=== PATIENT | female | born 1965 | race Caucasian/White ===

== ENCOUNTER → 2016-12-08 | Outpatient (CLI) | payer SELFPAY ==
[2016-12-08 13:24] LABS: ABSOLUTE EOSINOPHILS # (AUTO) 0.1 10^3/uL (0.0-0.6); ABSOLUTE LYMPHOCYTES (AUTO) 0.9 10^3/uL (0.5-4.7); ABSOLUTE MONOCYTES (AUTO) 0.5 10^3/uL (0.1-1.4); ABSOLUTE NEUT (AUTO) 5.5 10^3/uL (1.7-8.2); BASOPHILS % (AUTO) 0.5 % (0-2); EOSINOPHILS % (AUTO) 1.5 % (0-6); HEMATOCRIT 36.4 % (36.0-47.0); HEMOGLOBIN 11.8 g/dL (12.0-15.5); LYMPHOCYTES % (AUTO) 13.3 % (13-45); MEAN CORPUSCULAR HGB CONC 32.5 g/dL (32.0-36.0); MEAN CORPUSCULAR VOLUME 80 fl (80-97); MONOCYTES % (AUTO) 6.5 % (3-13); RED BLOOD COUNT 4.56 10^6/uL (3.72-5.28); SEGMENTED NEUTROPHILS % (AUTO) 78.2 % (42-78); WHITE BLOOD COUNT 7.1 10^3/uL (4.0-10.5)
[2016-12-08 13:44] LABS: ALANINE AMINOTRANSFERASE 10 U/L (9-52); ALBUMIN 3.9 g/dL (3.5-5.0); ALKALINE PHOSPHATASE 104 U/L (38-126); AMYLASE 44 U/L (30-110); ANION GAP 13 (5-19); ASPARTATE AMINO TRANSFERASE 14 U/L (14-36); BILIRUBIN,TOTAL 0.5 mg/dL (0.2-1.3); BLOOD UREA NITROGEN 38 mg/dL (7-20); CALCIUM 9.2 mg/dL (8.4-10.2); CARBON DIOXIDE 23 mmol/L (22-30); CHLORIDE 106 mmol/L (98-107); CREATININE RESULT 2.22 mg/dL (0.52-1.25); Direct HDL 47 mg/dL (>40); GLUCOSE 148 mg/dL (75-110); LIPASE 45.8 U/L (23-300); MAGNESIUM 2.2 mg/dL (1.6-2.3); POTASSIUM 5.2 mmol/L (3.6-5.0); SODIUM 141.9 mmol/L (137-145); TRIGLYCERIDES 182 mg/dL (<150)
[2016-12-08 13:49] LABS: APPEARANCE,URINE TURBID; BILIRUBIN,URINE NEGATIVE (NEGATIVE); GLUCOSE, URINE NEGATIVE (NEGATIVE); KETONES,URINE NEGATIVE (NEGATIVE); LEUKOCYTE ESTERASE,URINE LARGE (NEGATIVE); NITRITE,URINE NEGATIVE (NEGATIVE); PROTEIN,URINE 100 mg/dL (NEGATIVE); URINE SPECIFIC GRAVITY 1.017; UROBILINOGEN,URINE NEGATIVE mg/dL (<2.0)
[2016-12-08 13:54] LABS: DIRECT LDL 112 mg/dL (<100)
[2016-12-08 15:42] LABS: PROTHROMBIN TIME 51.3 SEC (11.4-15.4)
[2016-12-09 13:47] LABS: C-PEPTIDE 5.7 ng/mL (1.1-4.4)
[2016-12-10 08:35] LABS: TACROLIMUS (FK506) 6.2 ng/mL (2.0-20.0)
== END ==
LOC: OD 12:03
PROVIDERS: ATTEND Internal Medicine Nephrology
DX: D69.9 Hemorrhagic condition, unspecified (principal); Z94.0 Kidney transplant status; Z79.899 Other long term (current) drug therapy; E55.9 Vitamin D deficiency, unspecified; Z11.4 Encounter for screening for human immunodeficiency virus [HIV]; E11.29 Type 2 diabetes mellitus with other diabetic kidney complication; Z78.9 Other specified health status; N39.0 Urinary tract infection, site not specified; D63.1 Anemia in chronic kidney disease; E83.30 Disorder of phosphorus metabolism, unspecified; Z09 Encounter for follow-up examination after completed treatment for conditions other than malignant neoplasm; T86.10 Unspecified complication of kidney transplant; B25.9 Cytomegaloviral disease, unspecified; Z94.83 Pancreas transplant status
CPT/HCPCS: 36415; 80048; 80197; 81001; 82040; 82150; 82247; 82465; 82977; 83036; 83690; 83718; 83721; 83735; 84075; 84100; 84450; 84460; 84478; 84681; 85025; 85610; 87086; 87088; 87186

== ENCOUNTER → 2016-12-19 | Outpatient (CLI) | payer SELFPAY ==
[2016-12-19 12:59] LABS: PROTHROMBIN TIME 15.7 SEC (11.4-15.4)
== END ==
LOC: OD 10:57
PROVIDERS: ATTEND Internal Medicine Nephrology
DX: D89.9 Disorder involving the immune mechanism, unspecified (principal); Z94.0 Kidney transplant status; Z79.899 Other long term (current) drug therapy; Z11.4 Encounter for screening for human immunodeficiency virus [HIV]; E11.29 Type 2 diabetes mellitus with other diabetic kidney complication; Z78.9 Other specified health status; N39.0 Urinary tract infection, site not specified; D63.1 Anemia in chronic kidney disease; E83.30 Disorder of phosphorus metabolism, unspecified; Z09 Encounter for follow-up examination after completed treatment for conditions other than malignant neoplasm; T86.10 Unspecified complication of kidney transplant; B25.9 Cytomegaloviral disease, unspecified; Z94.83 Pancreas transplant status
CPT/HCPCS: 36415; 85610

== ENCOUNTER → 2017-01-05 | Outpatient (CLI) | payer SELFPAY ==
[2017-01-05 12:07] LABS: ABSOLUTE BASOPHILS # (AUTO) 0.1 10^3/uL (0.0-0.2); ABSOLUTE EOSINOPHILS # (AUTO) 0.3 10^3/uL (0.0-0.6); ABSOLUTE LYMPHOCYTES (AUTO) 1.4 10^3/uL (0.5-4.7); ABSOLUTE MONOCYTES (AUTO) 0.5 10^3/uL (0.1-1.4); ABSOLUTE NEUT (AUTO) 5.4 10^3/uL (1.7-8.2); BASOPHILS % (AUTO) 0.8 % (0-2); EOSINOPHILS % (AUTO) 3.6 % (0-6); HEMATOCRIT 37.6 % (36.0-47.0); HEMOGLOBIN 11.9 g/dL (12.0-15.5); HGB HCT DIFFERENCE -1.9; LYMPHOCYTES % (AUTO) 18.7 % (13-45); MEAN CORPUSCULAR HEMOGLOBIN 25.6 pg (27.0-33.4); MEAN CORPUSCULAR HGB CONC 31.7 g/dL (32.0-36.0); MEAN CORPUSCULAR VOLUME 81 fl (80-97); MONOCYTES % (AUTO) 6.4 % (3-13); RED BLOOD COUNT 4.65 10^6/uL (3.72-5.28); RED CELL DISTRIBUTION WIDTH 16.3 % (11.5-14.0); SEGMENTED NEUTROPHILS % (AUTO) 70.5 % (42-78); WHITE BLOOD COUNT 7.6 10^3/uL (4.0-10.5)
[2017-01-05 12:16] LABS: PROTHROMBIN TIME 18.6 SEC (11.4-15.4)
[2017-01-05 12:47] LABS: AMYLASE 54 U/L (30-110); ANION GAP 12 (5-19); BLOOD UREA NITROGEN 26 mg/dL (7-20); CALCIUM 9.3 mg/dL (8.4-10.2); CARBON DIOXIDE 22 mmol/L (22-30); CHLORIDE 104 mmol/L (98-107); CREATININE RESULT 1.23 mg/dL (0.52-1.25); GLUCOSE 104 mg/dL (75-110); LIPASE 150.9 U/L (23-300); MAGNESIUM 1.6 mg/dL (1.6-2.3); PHOSPHORUS 4.1 mg/dL (2.5-4.5); POTASSIUM 5.3 mmol/L (3.6-5.0); SODIUM 138.1 mmol/L (137-145)
[2017-01-06 14:54] LABS: C-PEPTIDE 2.3 ng/mL (1.1-4.4)
[2017-01-07 07:15] LABS: TACROLIMUS (FK506) 6.6 ng/mL (2.0-20.0)
== END ==
LOC: OD 10:35
PROVIDERS: ATTEND Internal Medicine Nephrology
DX: D89.9 Disorder involving the immune mechanism, unspecified (principal); Z94.0 Kidney transplant status; Z09 Encounter for follow-up examination after completed treatment for conditions other than malignant neoplasm; Z79.899 Other long term (current) drug therapy; E55.9 Vitamin D deficiency, unspecified; Z11.4 Encounter for screening for human immunodeficiency virus [HIV]; E11.29 Type 2 diabetes mellitus with other diabetic kidney complication; Z78.9 Other specified health status; N39.0 Urinary tract infection, site not specified; D53.1 Other megaloblastic anemias, not elsewhere classified; E83.30 Disorder of phosphorus metabolism, unspecified; T86.10 Unspecified complication of kidney transplant; B25.9 Cytomegaloviral disease, unspecified; Z94.83 Pancreas transplant status
CPT/HCPCS: 36415; 80048; 80197; 82150; 83036; 83690; 83735; 84100; 84681; 85025; 85610

== ENCOUNTER → 2017-02-17 | Outpatient (CLI) | payer SELFPAY ==
[2017-02-17 12:47] LABS: PROTHROMBIN TIME 22.8 SEC (11.4-15.4)
[2017-02-17 12:52] LABS: ABSOLUTE EOSINOPHILS # (AUTO) 0.3 10^3/uL (0.0-0.6); ABSOLUTE LYMPHOCYTES (AUTO) 1.6 10^3/uL (0.5-4.7); ABSOLUTE MONOCYTES (AUTO) 0.4 10^3/uL (0.1-1.4); ABSOLUTE NEUT (AUTO) 4.7 10^3/uL (1.7-8.2); BASOPHILS % (AUTO) 0.6 % (0-2); EOSINOPHILS % (AUTO) 4.5 % (0-6); HEMATOCRIT 36.9 % (36.0-47.0); HEMOGLOBIN 11.7 g/dL (12.0-15.5); HGB HCT DIFFERENCE -1.8; LYMPHOCYTES % (AUTO) 22.7 % (13-45); MEAN CORPUSCULAR HEMOGLOBIN 25.3 pg (27.0-33.4); MEAN CORPUSCULAR HGB CONC 31.6 g/dL (32.0-36.0); MEAN CORPUSCULAR VOLUME 80 fl (80-97); MONOCYTES % (AUTO) 5.6 % (3-13); RED BLOOD COUNT 4.61 10^6/uL (3.72-5.28); RED CELL DISTRIBUTION WIDTH 16.1 % (11.5-14.0); SEGMENTED NEUTROPHILS % (AUTO) 66.6 % (42-78)
[2017-02-17 13:21] LABS: AMYLASE 53 U/L (30-110); ANION GAP 12 (5-19); BLOOD UREA NITROGEN 26 mg/dL (7-20); CALCIUM 9.4 mg/dL (8.4-10.2); CARBON DIOXIDE 22 mmol/L (22-30); CHLORIDE 107 mmol/L (98-107); CREATININE RESULT 1.29 mg/dL (0.52-1.25); GLUCOSE 115 mg/dL (75-110); LIPASE 112.7 U/L (23-300); MAGNESIUM 1.8 mg/dL (1.6-2.3); POTASSIUM 4.8 mmol/L (3.6-5.0)
== END ==
LOC: OD 11:34
PROVIDERS: ATTEND Internal Medicine Nephrology
DX: Z94.0 Kidney transplant status (principal); D89.9 Disorder involving the immune mechanism, unspecified; Z79.899 Other long term (current) drug therapy; Z11.4 Encounter for screening for human immunodeficiency virus [HIV]; E11.29 Type 2 diabetes mellitus with other diabetic kidney complication; N39.0 Urinary tract infection, site not specified; D63.1 Anemia in chronic kidney disease; E55.9 Vitamin D deficiency, unspecified; E83.30 Disorder of phosphorus metabolism, unspecified; Z09 Encounter for follow-up examination after completed treatment for conditions other than malignant neoplasm; T86.10 Unspecified complication of kidney transplant; B25.9 Cytomegaloviral disease, unspecified; Z94.83 Pancreas transplant status; Z78.9 Other specified health status
CPT/HCPCS: 36415; 80048; 80197; 82150; 83036; 83690; 83735; 84100; 84681; 85025; 85610

== ENCOUNTER → 2017-04-23 | Outpatient (CLI) | payer SELFPAY ==
[2017-04-23 11:28] LABS: ABSOLUTE BASOPHILS # (AUTO) 0.1 10^3/uL (0.0-0.2); ABSOLUTE EOSINOPHILS # (AUTO) 0.3 10^3/uL (0.0-0.6); ABSOLUTE LYMPHOCYTES (AUTO) 1.6 10^3/uL (0.5-4.7); ABSOLUTE MONOCYTES (AUTO) 0.4 10^3/uL (0.1-1.4); ABSOLUTE NEUT (AUTO) 4.1 10^3/uL (1.7-8.2); BASOPHILS % (AUTO) 0.9 % (0-2); EOSINOPHILS % (AUTO) 4.9 % (0-6); HEMATOCRIT 36.2 % (36.0-47.0); HEMOGLOBIN 11.6 g/dL (12.0-15.5); HGB HCT DIFFERENCE -1.4; LYMPHOCYTES % (AUTO) 24.6 % (13-45); MEAN CORPUSCULAR HGB CONC 31.9 g/dL (32.0-36.0); MEAN CORPUSCULAR VOLUME 78 fl (80-97); MONOCYTES % (AUTO) 5.8 % (3-13); RED BLOOD COUNT 4.62 10^6/uL (3.72-5.28); RED CELL DISTRIBUTION WIDTH 16.4 % (11.5-14.0); SEGMENTED NEUTROPHILS % (AUTO) 63.8 % (42-78); WHITE BLOOD COUNT 6.4 10^3/uL (4.0-10.5)
[2017-04-23 11:33] LABS: APPEARANCE,URINE SLIGHTLY-CLOUDY; BILIRUBIN,URINE NEGATIVE (NEGATIVE); GLUCOSE, URINE 50 mg/dL (NEGATIVE); KETONES,URINE NEGATIVE (NEGATIVE); LEUKOCYTE ESTERASE,URINE SMALL (NEGATIVE); NITRITE,URINE NEGATIVE (NEGATIVE); PROTEIN,URINE 100 mg/dL (NEGATIVE); URINE SPECIFIC GRAVITY 1.014; UROBILINOGEN,URINE NEGATIVE mg/dL (<2.0)
[2017-04-23 11:36] LABS: PARTIAL THROMBOPLASTIN TIME 37.5 SEC (23.5-35.8)
[2017-04-23 11:54] LABS: ALANINE AMINOTRANSFERASE 19 U/L (9-52); ALBUMIN 3.9 g/dL (3.5-5.0); ALKALINE PHOSPHATASE 117 U/L (38-126); AMYLASE 98 U/L (30-110); ANION GAP 9 (5-19); ASPARTATE AMINO TRANSFERASE 22 U/L (14-36); BILIRUBIN,TOTAL 0.6 mg/dL (0.2-1.3); BLOOD UREA NITROGEN 29 mg/dL (7-20); CALCIUM 9.3 mg/dL (8.4-10.2); CARBON DIOXIDE 23 mmol/L (22-30); CHLORIDE 106 mmol/L (98-107); CHOLESTEROL 238.71 mg/dL (0-200); CREATININE RESULT 1.41 mg/dL (0.52-1.25); Direct HDL 67 mg/dL (>40); GLUCOSE 117 mg/dL (75-110); LIPASE 489.2 U/L (23-300); MAGNESIUM 1.8 mg/dL (1.6-2.3); PHOSPHORUS 4.4 mg/dL (2.5-4.5); SODIUM 137.6 mmol/L (137-145); TRIGLYCERIDES 115 mg/dL (<150)
[2017-04-23 12:04] LABS: DIRECT LDL 134 mg/dL (<100)
[2017-04-24 16:08] LABS: C-PEPTIDE 3.2 ng/mL (1.1-4.4)
[2017-04-25 12:05] LABS: TACROLIMUS (FK506) 6.3 ng/mL (2.0-20.0)
== END ==
LOC: OD 10:15
PROVIDERS: ATTEND Internal Medicine Nephrology
DX: D89.9 Disorder involving the immune mechanism, unspecified (principal); Z94.0 Kidney transplant status; Z79.899 Other long term (current) drug therapy; E55.9 Vitamin D deficiency, unspecified; Z11.4 Encounter for screening for human immunodeficiency virus [HIV]; E11.29 Type 2 diabetes mellitus with other diabetic kidney complication; Z78.9 Other specified health status; N39.0 Urinary tract infection, site not specified; N18.9 Chronic kidney disease, unspecified; D63.1 Anemia in chronic kidney disease; E83.30 Disorder of phosphorus metabolism, unspecified; Z09 Encounter for follow-up examination after completed treatment for conditions other than malignant neoplasm; T86.10 Unspecified complication of kidney transplant; B25.9 Cytomegaloviral disease, unspecified; Z94.83 Pancreas transplant status
CPT/HCPCS: 36415; 80048; 80197; 81001; 82040; 82150; 82247; 82465; 82977; 83036; 83690; 83718; 83721; 83735; 84075; 84100; 84450; 84460; 84478; 84681; 85025; 85610; 85730; 87086

== ENCOUNTER → 2017-04-28 | Outpatient (CLI) | payer SELFPAY ==
[2017-04-30 12:01] LABS: PROTHROMBIN TIME 29.3 SEC (11.4-15.4)
== END ==
LOC: OD 11:21
PROVIDERS: ATTEND Internal Medicine Nephrology
DX: D89.9 Disorder involving the immune mechanism, unspecified (principal); Z94.0 Kidney transplant status; Z11.4 Encounter for screening for human immunodeficiency virus [HIV]; Z78.9 Other specified health status; Z79.899 Other long term (current) drug therapy; D63.1 Anemia in chronic kidney disease; N39.0 Urinary tract infection, site not specified; E11.29 Type 2 diabetes mellitus with other diabetic kidney complication; E83.30 Disorder of phosphorus metabolism, unspecified; T86.10 Unspecified complication of kidney transplant; B25.9 Cytomegaloviral disease, unspecified; Z94.83 Pancreas transplant status
CPT/HCPCS: 36415; 85610

== ENCOUNTER → 2017-05-21 | Outpatient (CLI) | payer SELFPAY ==
[2017-05-21 12:49] LABS: ABSOLUTE EOSINOPHILS # (AUTO) 0.3 10^3/uL (0.0-0.6); ABSOLUTE LYMPHOCYTES (AUTO) 1.3 10^3/uL (0.5-4.7); ABSOLUTE MONOCYTES (AUTO) 0.4 10^3/uL (0.1-1.4); ABSOLUTE NEUT (AUTO) 5.2 10^3/uL (1.7-8.2); BASOPHILS % (AUTO) 0.5 % (0-2); EOSINOPHILS % (AUTO) 3.9 % (0-6); HEMATOCRIT 35.9 % (36.0-47.0); HEMOGLOBIN 11.1 g/dL (12.0-15.5); HGB HCT DIFFERENCE -2.6; LYMPHOCYTES % (AUTO) 18.5 % (13-45); MEAN CORPUSCULAR HEMOGLOBIN 24.6 pg (27.0-33.4); MEAN CORPUSCULAR VOLUME 79 fl (80-97); MONOCYTES % (AUTO) 5.5 % (3-13); RED BLOOD COUNT 4.52 10^6/uL (3.72-5.28); RED CELL DISTRIBUTION WIDTH 17.1 % (11.5-14.0); SEGMENTED NEUTROPHILS % (AUTO) 71.6 % (42-78); WHITE BLOOD COUNT 7.2 10^3/uL (4.0-10.5)
[2017-05-21 12:52] LABS: PROTHROMBIN TIME 29.8 SEC (11.4-15.4)
[2017-05-21 13:08] LABS: AMYLASE 112 U/L (30-110); ANION GAP 13 (5-19); BLOOD UREA NITROGEN 30 mg/dL (7-20); CALCIUM 8.6 mg/dL (8.4-10.2); CARBON DIOXIDE 19 mmol/L (22-30); CHLORIDE 103 mmol/L (98-107); CHOLESTEROL 194.91 mg/dL (0-200); CREATININE RESULT 1.42 mg/dL (0.52-1.25); Direct HDL 57 mg/dL (>40); GLUCOSE 194 mg/dL (75-110); LIPASE 796.9 U/L (23-300); PHOSPHORUS 3.6 mg/dL (2.5-4.5); POTASSIUM 4.6 mmol/L (3.6-5.0); SODIUM 135.3 mmol/L (137-145); TRIGLYCERIDES 120 mg/dL (<150)
[2017-05-21 13:20] LABS: DIRECT LDL 109 mg/dL (<100)
[2017-05-23 09:47] LABS: C-PEPTIDE 5.4 ng/mL (1.1-4.4)
[2017-05-23 09:48] LABS: TACROLIMUS (FK506) 3.5 ng/mL (2.0-20.0)
== END ==
LOC: OD 11:17
PROVIDERS: ATTEND Internal Medicine Nephrology
DX: Z09 Encounter for follow-up examination after completed treatment for conditions other than malignant neoplasm (principal); D89.9 Disorder involving the immune mechanism, unspecified; Z84.0 Family history of diseases of the skin and subcutaneous tissue; Z79.899 Other long term (current) drug therapy; E55.9 Vitamin D deficiency, unspecified; Z11.4 Encounter for screening for human immunodeficiency virus [HIV]; E11.29 Type 2 diabetes mellitus with other diabetic kidney complication; Z78.9 Other specified health status; N39.0 Urinary tract infection, site not specified; D63.1 Anemia in chronic kidney disease; E83.30 Disorder of phosphorus metabolism, unspecified; B25.9 Cytomegaloviral disease, unspecified; Z94.83 Pancreas transplant status
CPT/HCPCS: 36415; 80048; 80197; 82150; 82465; 83036; 83690; 83718; 83721; 83735; 84100; 84478; 84681; 85025; 85610

== ENCOUNTER → 2017-08-26 | Outpatient (CLI) | payer SELFPAY ==
[2017-08-26 12:19] LABS: ABSOLUTE BASOPHILS # (AUTO) 0.1 10^3/uL (0.0-0.2); ABSOLUTE EOSINOPHILS # (AUTO) 0.2 10^3/uL (0.0-0.6); ABSOLUTE LYMPHOCYTES (AUTO) 1.5 10^3/uL (0.5-4.7); ABSOLUTE MONOCYTES (AUTO) 0.5 10^3/uL (0.1-1.4); ABSOLUTE NEUT (AUTO) 5.1 10^3/uL (1.7-8.2); BASOPHILS % (AUTO) 1.4 % (0-2); EOSINOPHILS % (AUTO) 3.1 % (0-6); HEMATOCRIT 35.1 % (36.0-47.0); HEMOGLOBIN 11.2 g/dL (12.0-15.5); HGB HCT DIFFERENCE -1.5; LYMPHOCYTES % (AUTO) 20.1 % (13-45); MEAN CORPUSCULAR HEMOGLOBIN 25.4 pg (27.0-33.4); MEAN CORPUSCULAR VOLUME 79 fl (80-97); MONOCYTES % (AUTO) 6.2 % (3-13); RED BLOOD COUNT 4.43 10^6/uL (3.72-5.28); SEGMENTED NEUTROPHILS % (AUTO) 69.2 % (42-78); WHITE BLOOD COUNT 7.3 10^3/uL (4.0-10.5)
[2017-08-26 12:28] LABS: PROTHROMBIN TIME 15.6 SEC (11.4-15.4)
[2017-08-26 13:30] LABS: AMYLASE 50 U/L (30-110); ANION GAP 10 (5-19); BLOOD UREA NITROGEN 28 mg/dL (7-20); CALCIUM 9.5 mg/dL (8.4-10.2); CARBON DIOXIDE 21 mmol/L (22-30); CHLORIDE 109 mmol/L (98-107); CREATININE RESULT 1.32 mg/dL (0.52-1.25); GLUCOSE 177 mg/dL (75-110); LIPASE 111.4 U/L (23-300); PHOSPHORUS 4.1 mg/dL (2.5-4.5); POTASSIUM 5.4 mmol/L (3.6-5.0); SODIUM 139.7 mmol/L (137-145)
[2017-08-27 13:07] LABS: C-PEPTIDE 1.4 ng/mL (1.1-4.4)
== END ==
LOC: OD 11:17
PROVIDERS: ATTEND Internal Medicine Nephrology
DX: D89.9 Disorder involving the immune mechanism, unspecified (principal); Z94.0 Kidney transplant status; Z79.899 Other long term (current) drug therapy; E55.9 Vitamin D deficiency, unspecified; B25.9 Cytomegaloviral disease, unspecified; Z94.83 Pancreas transplant status; Z11.4 Encounter for screening for human immunodeficiency virus [HIV]; E11.29 Type 2 diabetes mellitus with other diabetic kidney complication; N39.0 Urinary tract infection, site not specified
CPT/HCPCS: 36415; 80048; 80197; 82150; 83036; 83690; 83735; 84100; 84681; 85025; 85610

== ENCOUNTER → 2017-09-02 | Outpatient (CLI) | payer SELFPAY ==
[2017-09-02 12:01] LABS: PROTHROMBIN TIME 20.8 SEC (11.4-15.4)
== END ==
LOC: OD 10:50
PROVIDERS: ATTEND Internal Medicine Nephrology
DX: D89.9 Disorder involving the immune mechanism, unspecified (principal); Z94.0 Kidney transplant status; Z79.899 Other long term (current) drug therapy; E55.9 Vitamin D deficiency, unspecified; Z11.4 Encounter for screening for human immunodeficiency virus [HIV]; E11.29 Type 2 diabetes mellitus with other diabetic kidney complication; Z78.9 Other specified health status; N39.0 Urinary tract infection, site not specified; D63.1 Anemia in chronic kidney disease; Z09 Encounter for follow-up examination after completed treatment for conditions other than malignant neoplasm; T86.10 Unspecified complication of kidney transplant; B25.9 Cytomegaloviral disease, unspecified; Z94.83 Pancreas transplant status
CPT/HCPCS: 36415; 85610

== ENCOUNTER → 2017-09-09 | Outpatient (CLI) | payer SELFPAY ==
[2017-09-09 11:59] LABS: ABSOLUTE BASOPHILS # (AUTO) 0.1 10^3/uL (0.0-0.2); ABSOLUTE EOSINOPHILS # (AUTO) 0.1 10^3/uL (0.0-0.6); ABSOLUTE LYMPHOCYTES (AUTO) 1.6 10^3/uL (0.5-4.7); ABSOLUTE MONOCYTES (AUTO) 0.4 10^3/uL (0.1-1.4); ABSOLUTE NEUT (AUTO) 5.8 10^3/uL (1.7-8.2); BASOPHILS % (AUTO) 0.7 % (0-2); EOSINOPHILS % (AUTO) 1.7 % (0-6); HEMATOCRIT 35.4 % (36.0-47.0); HEMOGLOBIN 11.3 g/dL (12.0-15.5); HGB HCT DIFFERENCE -1.5; LYMPHOCYTES % (AUTO) 19.6 % (13-45); MEAN CORPUSCULAR HGB CONC 31.8 g/dL (32.0-36.0); MEAN CORPUSCULAR VOLUME 79 fl (80-97); MONOCYTES % (AUTO) 5.4 % (3-13); RED BLOOD COUNT 4.51 10^6/uL (3.72-5.28); RED CELL DISTRIBUTION WIDTH 16.7 % (11.5-14.0); SEGMENTED NEUTROPHILS % (AUTO) 72.6 % (42-78)
[2017-09-09 12:05] LABS: PROTHROMBIN TIME 27.9 SEC (11.4-15.4)
[2017-09-09 12:28] LABS: AMYLASE 46 U/L (30-110); ANION GAP 12 (5-19); BLOOD UREA NITROGEN 26 mg/dL (7-20); CALCIUM 9.4 mg/dL (8.4-10.2); CARBON DIOXIDE 21 mmol/L (22-30); CHLORIDE 109 mmol/L (98-107); GLUCOSE 118 mg/dL (75-110); LIPASE 55.4 U/L (23-300); MAGNESIUM 1.8 mg/dL (1.6-2.3); PHOSPHORUS 4.3 mg/dL (2.5-4.5); POTASSIUM 5.5 mmol/L (3.6-5.0); SODIUM 142.1 mmol/L (137-145)
[2017-09-11 07:18] LABS: C-PEPTIDE 0.2 ng/mL (1.1-4.4); TACROLIMUS (FK506) 6.9 ng/mL (2.0-20.0)
== END ==
LOC: OD 10:59
PROVIDERS: ATTEND Internal Medicine Nephrology
DX: D89.9 Disorder involving the immune mechanism, unspecified (principal); Z94.0 Kidney transplant status; Z79.899 Other long term (current) drug therapy; E55.9 Vitamin D deficiency, unspecified; B25.9 Cytomegaloviral disease, unspecified; Z94.83 Pancreas transplant status
CPT/HCPCS: 36415; 80048; 80197; 82150; 83036; 83690; 83735; 84100; 84681; 85025; 85610

== ENCOUNTER → 2017-09-21 | Outpatient (CLI) | payer SELFPAY ==
[2017-09-21 12:42] LABS: ABSOLUTE BASOPHILS # (AUTO) 0.1 10^3/uL (0.0-0.2); ABSOLUTE EOSINOPHILS # (AUTO) 0.2 10^3/uL (0.0-0.6); ABSOLUTE LYMPHOCYTES (AUTO) 1.6 10^3/uL (0.5-4.7); ABSOLUTE MONOCYTES (AUTO) 0.3 10^3/uL (0.1-1.4); ABSOLUTE NEUT (AUTO) 4.5 10^3/uL (1.7-8.2); BASOPHILS % (AUTO) 0.9 % (0-2); EOSINOPHILS % (AUTO) 2.9 % (0-6); HEMATOCRIT 35.8 % (36.0-47.0); HEMOGLOBIN 11.7 g/dL (12.0-15.5); HGB HCT DIFFERENCE -0.7; LYMPHOCYTES % (AUTO) 24.2 % (13-45); MEAN CORPUSCULAR HEMOGLOBIN 25.5 pg (27.0-33.4); MEAN CORPUSCULAR HGB CONC 32.6 g/dL (32.0-36.0); MEAN CORPUSCULAR VOLUME 78 fl (80-97); MONOCYTES % (AUTO) 5.1 % (3-13); RED BLOOD COUNT 4.58 10^6/uL (3.72-5.28); RED CELL DISTRIBUTION WIDTH 16.4 % (11.5-14.0); SEGMENTED NEUTROPHILS % (AUTO) 66.9 % (42-78); WHITE BLOOD COUNT 6.8 10^3/uL (4.0-10.5)
[2017-09-21 12:45] LABS: PROTHROMBIN TIME 30.4 SEC (11.4-15.4)
[2017-09-21 13:03] LABS: AMYLASE 50 U/L (30-110); ANION GAP 13 (5-19); BLOOD UREA NITROGEN 36 mg/dL (7-20); CALCIUM 9.5 mg/dL (8.4-10.2); CARBON DIOXIDE 20 mmol/L (22-30); CHLORIDE 109 mmol/L (98-107); CREATININE RESULT 1.32 mg/dL (0.52-1.25); GLUCOSE 117 mg/dL (75-110); MAGNESIUM 1.7 mg/dL (1.6-2.3); PHOSPHORUS 4.6 mg/dL (2.5-4.5); POTASSIUM 5.4 mmol/L (3.6-5.0); SODIUM 142.2 mmol/L (137-145)
[2017-09-22 13:45] LABS: TACROLIMUS (FK506) 6.3 ng/mL (2.0-20.0)
== END ==
LOC: OD 10:39
PROVIDERS: ATTEND Internal Medicine Nephrology
DX: D89.9 Disorder involving the immune mechanism, unspecified (principal); Z94.0 Kidney transplant status; Z79.899 Other long term (current) drug therapy; E55.9 Vitamin D deficiency, unspecified; Z11.4 Encounter for screening for human immunodeficiency virus [HIV]; E11.29 Type 2 diabetes mellitus with other diabetic kidney complication; Z78.9 Other specified health status; N39.0 Urinary tract infection, site not specified; D63.1 Anemia in chronic kidney disease; E83.30 Disorder of phosphorus metabolism, unspecified; Z09 Encounter for follow-up examination after completed treatment for conditions other than malignant neoplasm; T86.10 Unspecified complication of kidney transplant; B25.9 Cytomegaloviral disease, unspecified; Z94.83 Pancreas transplant status
CPT/HCPCS: 36415; 80048; 80197; 82150; 83036; 83690; 83735; 84100; 84681; 85025; 85610

== ENCOUNTER → 2017-12-25 | Outpatient (CLI) | payer SELFPAY ==
[2017-12-25 13:18] LABS: ABSOLUTE BASOPHILS # (AUTO) 0.1 10^3/uL (0.0-0.2); ABSOLUTE EOSINOPHILS # (AUTO) 0.2 10^3/uL (0.0-0.6); ABSOLUTE LYMPHOCYTES (AUTO) 1.7 10^3/uL (0.5-4.7); ABSOLUTE MONOCYTES (AUTO) 0.4 10^3/uL (0.1-1.4); BASOPHILS % (AUTO) 0.8 % (0-2); EOSINOPHILS % (AUTO) 2.5 % (0-6); HEMATOCRIT 35.6 % (36.0-47.0); HEMOGLOBIN 11.3 g/dL (12.0-15.5); LYMPHOCYTES % (AUTO) 19.8 % (13-45); MEAN CORPUSCULAR HEMOGLOBIN 24.7 pg (27.0-33.4); MEAN CORPUSCULAR HGB CONC 31.7 g/dL (32.0-36.0); MEAN CORPUSCULAR VOLUME 78 fl (80-97); MONOCYTES % (AUTO) 4.8 % (3-13); PLATELET COUNT 226 10^3/uL (150-450); RED BLOOD COUNT 4.57 10^6/uL (3.72-5.28); RED CELL DISTRIBUTION WIDTH 17.3 % (11.5-14.0); SEGMENTED NEUTROPHILS % (AUTO) 72.1 % (42-78); TOTAL CELLS COUNTED % (AUTO) 100 %; WHITE BLOOD COUNT 8.4 10^3/uL (4.0-10.5)
[2017-12-25 13:42] LABS: INTERNATIONAL RATION (INR) 1.71
[2017-12-25 13:45] LABS: AMYLASE 93 U/L (30-110); ANION GAP 9 (5-19); BLOOD UREA NITROGEN 28 mg/dL (7-20); CALCIUM 9.7 mg/dL (8.4-10.2); CARBON DIOXIDE 21 mmol/L (22-30); CHLORIDE 108 mmol/L (98-107); GLUCOSE 85 mg/dL (75-110); LIPASE 344.2 U/L (23-300); MAGNESIUM 1.8 mg/dL (1.6-2.3); PHOSPHORUS 4.5 mg/dL (2.5-4.5); POTASSIUM 4.6 mmol/L (3.6-5.0); SODIUM 137.5 mmol/L (137-145)
[2017-12-27 13:28] LABS: C-PEPTIDE <0.1 ng/mL (1.1-4.4)
[2017-12-29 07:16] LABS: TACROLIMUS (FK506) 2.6 ng/mL (2.0-20.0)
== END ==
LOC: OD 11:46
PROVIDERS: ATTEND Internal Medicine Nephrology
DX: D89.9 Disorder involving the immune mechanism, unspecified (principal); Z94.0 Kidney transplant status; Z79.899 Other long term (current) drug therapy; E55.9 Vitamin D deficiency, unspecified; Z11.4 Encounter for screening for human immunodeficiency virus [HIV]; E11.29 Type 2 diabetes mellitus with other diabetic kidney complication; Z78.9 Other specified health status; N39.0 Urinary tract infection, site not specified; N18.9 Chronic kidney disease, unspecified; D63.1 Anemia in chronic kidney disease; E83.30 Disorder of phosphorus metabolism, unspecified; Z09 Encounter for follow-up examination after completed treatment for conditions other than malignant neoplasm; B25.9 Cytomegaloviral disease, unspecified; Z94.83 Pancreas transplant status
CPT/HCPCS: 36415; 80048; 80197; 82150; 83036; 83690; 83735; 84100; 84681; 85025; 85610

== ENCOUNTER → 2018-09-22 | Outpatient (CLI) | payer SELFPAY ==
[2018-09-22 12:11] LABS: ABSOLUTE BASOPHILS # (AUTO) 0.1 10^3/uL (0.0-0.2); ABSOLUTE EOSINOPHILS # (AUTO) 0.5 10^3/uL (0.0-0.6); ABSOLUTE LYMPHOCYTES (AUTO) 1.7 10^3/uL (0.5-4.7); ABSOLUTE MONOCYTES (AUTO) 0.5 10^3/uL (0.1-1.4); ABSOLUTE NEUT (AUTO) 6.5 10^3/uL (1.7-8.2); BASOPHILS % (AUTO) 0.7 % (0-2); EOSINOPHILS % (AUTO) 5.6 % (0-6); HEMATOCRIT 35.1 % (36.0-47.0); HEMOGLOBIN 11.4 g/dL (12.0-15.5); LYMPHOCYTES % (AUTO) 18.6 % (13-45); MEAN CORPUSCULAR HGB CONC 32.6 g/dL (32.0-36.0); MEAN CORPUSCULAR VOLUME 80 fl (80-97); MONOCYTES % (AUTO) 5.2 % (3-13); PLATELET COUNT 238 10^3/uL (150-450); RED BLOOD COUNT 4.39 10^6/uL (3.72-5.28); RED CELL DISTRIBUTION WIDTH 16.9 % (11.5-14.0); SEGMENTED NEUTROPHILS % (AUTO) 69.9 % (42-78); TOTAL CELLS COUNTED % (AUTO) 100 %; WHITE BLOOD COUNT 9.4 10^3/uL (4.0-10.5)
[2018-09-22 12:38] LABS: ANION GAP 12 (5-19); BLOOD UREA NITROGEN 29 mg/dL (7-20); CALCIUM 9.5 mg/dL (8.4-10.2); CARBON DIOXIDE 21 mmol/L (22-30); CHLORIDE 106 mmol/L (98-107); GLUCOSE 106 mg/dL (75-110); PHOSPHORUS 4.6 mg/dL (2.5-4.5); POTASSIUM 5.3 mmol/L (3.6-5.0); SODIUM 139.4 mmol/L (137-145)
[2018-09-22 14:34] LABS: INTERNATIONAL RATION (INR) 1.17; PROTHROMBIN TIME 15.5 SEC (11.4-15.4)
== END ==
LOC: OD 10:20
PROVIDERS: ATTEND Internal Medicine Nephrology
DX: D89.9 Disorder involving the immune mechanism, unspecified (principal); Z94.0 Kidney transplant status; E55.9 Vitamin D deficiency, unspecified; B25.9 Cytomegaloviral disease, unspecified; Z11.4 Encounter for screening for human immunodeficiency virus [HIV]; E11.29 Type 2 diabetes mellitus with other diabetic kidney complication; Z79.899 Other long term (current) drug therapy; N39.0 Urinary tract infection, site not specified; N18.9 Chronic kidney disease, unspecified; D63.1 Anemia in chronic kidney disease; E83.30 Disorder of phosphorus metabolism, unspecified; Z09 Encounter for follow-up examination after completed treatment for conditions other than malignant neoplasm; Z94.83 Pancreas transplant status; Z78.9 Other specified health status
CPT/HCPCS: 36415; 80048; 80197; 83735; 84100; 85025; 85610

== ENCOUNTER 2018-11-23 14:43 | Inpatient (IN) | payer SELFPAY ==
[2018-11-23] MEDS ORDERED: NORMAL SALINE 1000 ML 1,000 ML IV ONE (14:47)
[2018-11-23] MEDS ORDERED: ONDANSETRON HCL INJ/PF 4 MG/2 ML SDV IV ONE (14:47)
[2018-11-23] MEDS ORDERED: MORPHINE SULFATE 10 MG/ML INJ IV ONE (15:07)
--- NOTE | 2018-11-23 15:08 | ER Document Report ---
ED General - General Chief Complaint: Nausea/Vomiting/Diarrhea Stated Complaint: VOMITING Time Seen by Provider: 11/23/18 14:55 TRAVEL OUTSIDE OF THE [place] 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 Patient states that she became nauseous and started vomiting last night and had 2 episodes of loose but formed stool over the last couple hours. Patient states that she feels weak as well. She has not been eating or drinking since her passed 2 days ago. Patient states that she did not take any of her medicines this morning. Patient states that she is urinating normally otherwise. She has not had any recent illness and she has never been in DKA. Denies any headache, fever, neck pain, changes in vision/speech/mentation/hearing, URI, sore throat, chest pain, palpitations, syncope, cough, shortness of breath, wheeze, dyspnea, urinary retention, dysuria, hematuria, back pain, loss of control of bowel or bladder, numbness/tingling, or rash. Patient is seen by the transplant center in [place], but does not have a PCM she cannot afford it. - Related Data Allergies/Adverse Reactions: metoclopramide HCl [From Reglan] Allergy (Verified 07/14/17 13:13) Past Medical History - Social History Smoking Status: Unknown if Ever Smoked Family History: DM - Past Medical History Cardiac Medical History: Reports: Hx Hypertension, Hx Pulmonary Embolism Endocrine Medical History: Reports: Hx Diabetes Mellitus Type 1, Hx Diabetes Mellitus Type 2 Renal/ Medical History: Denies: Hx Peritoneal Dialysis Musculoskeletal Medical History: Reports Hx Musculoskeletal Deformity, Reports Hx Musculoskeletal Trauma Psychiatric Medical History: Reports: Hx Anxiety, Hx Depression Past Surgical History: Reports: Hx Appendectomy, Hx Bowel Surgery, Hx Cholecystectomy, Hx Hysterectomy, Hx Kidney (Renal Surgery) - transplant, right, Hx Orthopedic Surgery - Right elbow surgery, Hx Pancreatic Surgery - transplant 1999, KATHRYN drain, biopsy, Hx Tonsillectomy, Hx Tubal Ligation, Other - Pancreatic-renal transplant done in 1999 - Immunizations Immunizations up to date: No Hx Diphtheria, Pertussis, Tetanus Vaccination: Yes Hx Pneumococcal Vaccination: 10/14/15 Review of Systems - Review of Systems -: Yes All other systems reviewed and negative Physical Exam - Vital signs Vitals: Temp Resp BP Pulse Ox 97.9 F 22 H 109/60 99 11/23/18 14:51 11/23/18 14:51 11/23/18 14:51 11/23/18 14:51 - Notes Notes: PHYSICAL EXAMINATION: GENERAL: Well-appearing, well-nourished and in no acute distress. A&ox4. Answers questions appropriately. HEAD: Atraumatic, normocephalic. EYES: Pupils equal round and reactive to light, extraocular movements intact, sclera anicteric, conjunctiva are normal. ENT: Nares patent and without discharge. oropharynx clear without exudates. No tonsilar hypertrophy or erythema. Moist mucous membranes. NECK: Normal range of motion, supple without lymphadenopathy LUNGS: Breath sounds clear to auscultation bilaterally and equal. No wheezes rales or rhonchi. HEART: Regular rate and rhythm without murmurs, rubs, gallops. ABDOMEN: Soft, nondistended abdomen. No guarding, no rebound. No masses appr eciated. Normal bowel sounds present. No CVA tenderness bilaterally. + generalized tenderness. Musculoskeletal: FROM to passive/active. Strength 5+/5. Extremities: No cyanosis, clubbing, or edema b/l. Peripheral pulses 2+. Capillary refill less than 3 seconds. NEUROLOGICAL: Cranial nerves grossly intact. Normal speech, normal gait. Normal sensory, motor exams PSYCH: Normal mood, normal affect. SKIN: Warm, Dry, normal turgor, no rashes or lesions noted. Course - Re-evaluation Re-evalutation: 11/23/18 15:58 Patient is an afebrile 53-year-old female who presents to the emergency department in [facility]. She was given fluids, nausea medication, and some pain medicine. Once her potassium was returned at 6.1, insulin bolus of 5 units as well as an insulin drip was ordered. Patient will be given 2 A of bicarb as lyla welch. Reviewed case with patient who is agreeable to admission. EKG does not show any significant peaked T waves. She is alert and oriented and is not comatose. I did call and speak with our hospitalist, Dr. Weir, who accepted patient to the ICU. - Vital Signs Vital signs: Temp Pulse Resp BP Pulse Ox 97.9 F 19 109/60 99 11/23/18 14:51 11/23/18 15:00 11/23/18 14:51 11/23/18 15:00 - Laboratory Result Diagrams: 11/23/18 15:05 11/23/18 15:05 Laboratory results interpreted by me: 11/23/18 11/23/18 11/23/18 14:48 15:05 15:05 WBC 12.8 H Hgb 11.0 L MCH 25.3 L MCHC 30.7 L RDW 16.2 H Seg Neutrophils % 90.1 H Lymphocytes % 5.9 L Absolute Neutrophils 11.5 H VBG pH VBG pCO2 VBG HCO3 Sodium 133.2 L Potassium 6.1 H* Carbon Dioxide 11 L BUN 43 H Creatinine 1.95 H Est GFR ( Amer) 33 L Est GFR (Non-Af Amer) 27 L Glucose 493 H* POC Glucose 463 H* Alkaline Phosphatase 144 H 11/23/18 15:05 WBC Hgb MCH MCHC RDW Seg Neutrophils % Lymphocytes % Absolute Neutrophils VBG pH 7.19 L* VBG pCO2 28.5 L VBG HCO3 10.5 L Sodium Potassium Carbon Dioxide BUN Creatinine Est GFR ( Amer) Est GFR (Non-Af Amer) Glucose POC Glucose Alkaline Phosphatase Discharge - Discharge Clinical Impression: DKA (diabetic ketoacidoses) Qualifiers: Diabetes mellitus type: type 1 Diabetes mellitus complication detail: without coma Qualified Code(s): E10.10 - Type 1 diabetes mellitus with ketoacidosis without coma Condition: Stable Disposition: ADMITTED INPATIENT Admitting Provider: Hospitalist - Dr. Weir Unit Admitted: ICU Referrals: PATRICIO FRAIRE MD [NO LOCAL MD] - Follow up as needed
[2018-11-23 15:29] LABS: VENOUS BLOOD BASE EXCESS -16.3 mmol/L; VENOUS BLOOD HCO3 10.5 mmol/L (20-32); VENOUS BLOOD PCO2 28.5 mmHg (35-63)
[2018-11-23 15:32] LABS: ABSOLUTE BASOPHILS # (AUTO) 0.1 10^3/uL (0.0-0.2); ABSOLUTE LYMPHOCYTES (AUTO) 0.8 10^3/uL (0.5-4.7); ABSOLUTE MONOCYTES (AUTO) 0.4 10^3/uL (0.1-1.4); ABSOLUTE NEUT (AUTO) 11.5 10^3/uL (1.7-8.2); BASOPHILS % (AUTO) 0.4 % (0-2); EOSINOPHILS % (AUTO) 0.2 % (0-6); LYMPHOCYTES % (AUTO) 5.9 % (13-45); MEAN CORPUSCULAR HEMOGLOBIN 25.3 pg (27.0-33.4); MEAN CORPUSCULAR HGB CONC 30.7 g/dL (32.0-36.0); MEAN CORPUSCULAR VOLUME 83 fl (80-97); MONOCYTES % (AUTO) 3.4 % (3-13); PLATELET COUNT 328 10^3/uL (150-450); RED BLOOD COUNT 4.36 10^6/uL (3.72-5.28); RED CELL DISTRIBUTION WIDTH 16.2 % (11.5-14.0); SEGMENTED NEUTROPHILS % (AUTO) 90.1 % (42-78); TOTAL CELLS COUNTED % (AUTO) 100 %; VENOUS BLOOD PH 7.19 (7.30-7.42); WHITE BLOOD COUNT 12.8 10^3/uL (4.0-10.5)
[2018-11-23] MEDS ORDERED: DEXTROSE 5%-WATER 1000 ML 1,000 ML with SODIUM BICARBONATE 150 MEQ IV PRN ×2 (15:36)
[2018-11-23] MEDS ORDERED: SODIUM BICARBONATE 8.4% INJ 50 MEQ/50 ML DISP.SYRIN IV ONE (15:45)
[2018-11-23 15:46] LABS: ALANINE AMINOTRANSFERASE 23 U/L (9-52); ALBUMIN 3.5 g/dL (3.5-5.0); ALKALINE PHOSPHATASE 144 U/L (38-126); ANION GAP 19 (5-19); ASPARTATE AMINO TRANSFERASE 16 U/L (14-36); BILIRUBIN,DIRECT 0.4 mg/dL (0.0-0.4); BILIRUBIN,TOTAL 0.5 mg/dL (0.2-1.3); BLOOD UREA NITROGEN 43 mg/dL (7-20); CALCIUM 8.7 mg/dL (8.4-10.2); CARBON DIOXIDE 11 mmol/L (22-30); CHLORIDE 103 mmol/L (98-107); LIPASE 26.1 U/L (23-300); SODIUM 133.2 mmol/L (137-145); TOTAL PROTEIN 6.7 g/dL (6.3-8.2)
[2018-11-23] MEDS: NORMAL SALINE 1000 ML 1,000 ML IV PRN ×3 (15:50→17:00)
[2018-11-23 15:54] LABS: GLUCOSE 493 mg/dL (75-110); POTASSIUM 6.1 mmol/L (3.6-5.0)
[2018-11-23] MEDS ORDERED: DEXTROSE 40% GEL 15 GM TUBE PO PRN ×6 (15:54→16:31)
[2018-11-23] MEDS ORDERED: INSULIN REG, HUMAN 100 UNIT/ML 3 ML VIAL (PYX) IV ONE (15:54)
[2018-11-23] MEDS ORDERED: DEXTROSE 50%-WATER 25 GM/50 ML DISP.SYRIN IV PRN ×6 (15:54→16:31)
[2018-11-23] MEDS ORDERED: GLUCAGON,HUMAN RECOMB 1 MG INJ IM PRN ×2 (15:54→16:31)
[2018-11-23] MEDS ORDERED: NORMAL SALINE 100 ML with INSULIN REGULAR, HUMAN 100 UNIT IV PRN ×4 (15:54→16:31)
[2018-11-23] MEDS ORDERED: PROMETHAZINE HCL INJ 25 MG/1 ML VIAL IM ONE (15:55)
[2018-11-23] MEDS ORDERED: INSULIN REG, HUMAN 100 UNIT/ML 3 ML VIAL (PYX) ONE (16:15)
[2018-11-23] MEDS ORDERED: GLUCAGON,HUMAN RECOMB 1 MG INJ SUBCUT PRN (16:25)
--- NOTE | 2018-11-23 17:01 | PDOC H&P ---
History of Present Illness Admission Date/PCP: 11/23/18 16:01 Patient complains of: Nausea and vomitings and diarrhea History of Present Illness: STAR REYNAGA is a 53 year old female with history of type 1 diabetes mellitus, kidney pancreas transplant in 1999, history of PE, hyperlipidemia, gastroparesis, anxiety, depression, htn, insomnia came to the emergency room with history of nausea vomiting and diarrhea for the last 2 days. Is unable to keep anything since yesterday. Vomiting clear liquids. The blood in the vomitus. Complains of loose stools. Denies any fever. Complains of body aches all over the body. Any headaches dizzy spells. Rashes. His any chest pains. No fever or chills. Denies any upper respiratory tract symptoms. Patient says she took her insulin yesterday did not took insulin this morning. She said she is complete her medications. Patient states her on Thursday after that she is not feeling well. Emergency room the VBG was done pH is 7.19 with the with potassium of 6.1. There was 439 in the ER. Was also started on IV fluids along with insulin drip. Consult was called for admission. Last admiss ion for similar problem is in August last year. Went to see the patient patient is continued to have episodes of severe nausea associated with vomiting's. Past Medical History Cardiac Medical History: Reports: Hypertension, Pulmonary Embolism Endocrine Medical History: Reports: Diabetes Mellitus Type 1, Diabetes Mellitus Type 2 Renal/ Medical History: Reports: Chronic Kidney Disease, Other - Kidney panc reas transplant. GI Medical History: Reports: Gastroesophageal Reflux Disease Psychiatric Medical History: Reports: Depression, Tobacco Dependency Hematology: Reports: Anemia Past Surgical History Past Surgical History: Reports: Appendectomy, Cholecystectomy, Hysterectomy, Orthopedic Surgery - Right elbow surgery, Tonsillectomy, Tubal Ligation, Other - Pancreatic-renal transplant done in 1999 Social History Smoking Status: Current Every Day Smoker Frequency of Alcohol Use: Rare Hx Recreational Drug Use: No Drugs: None Hx Prescription Drug Abuse: No - Advance Directive Resuscitation Status: Full Code Family History Family History: DM Parental Family History Reviewed: Yes - Mother with history of diabetes. Children Family History Reviewed: Yes Sibling(s) Family History Reviewed.: Yes Medication/Allergy Home Medications: Amlodipine Besylate [Norvasc 5 mg Tablet] 5 mg PO Q12 07/14/17 Ca/D3/Mag Ox/Zinc/Piler/Bandar/Bor [Calcium 600-D3 Plus Caplet] 1 tab PO TID 07/14/17 Carvedilol [Coreg 6.25 mg Tablet] 6.25 mg PO Q12 07/14/17 Loperamide HCl [Loperamide] 2 mg PO PRN PRN 07/14/17 Mycophenolate Sodium [Myfortic 360 mg Tablet.dr] 360 mg PO BID 07/14/17 Omeprazole 40 mg PO BID 07/14/17 Prednisone [Deltasone 5 mg Tablet] 5 mg PO DAILY 07/14/17 Tacrolimus Anhydrous [Prograf 1 mg Capsule] 3 cap PO Q12 07/14/17 Warfarin Sodium [Coumadin 4 mg Tablet] 4 mg PO DAILY 07/14/17 Zolpidem Tartrate [Ambien] 10 mg PO QHS 07/14/17 Insulin Glargine,Hum.rec.anlog [Lantus Insulin 100 Unit/mL] 20 unit SUBCUT QHS #0 insuln.pen 07/17/17 Insulin Regular, Human [Humulin R (Reg) Insulin 100 unit/mL] 5 unit SUBCUT AC unit 07/17/17 Allergies/Adverse Reactions: metoclopramide HCl [From Reglan] Allergy (Verified 07/14/17 13:13) Review of Systems Constitutional: PRESENT: fatigue, weakness. ABSENT: chills, fever(s), headache(s) Nose, Mouth, and Throat: ABSENT: sore throat Cardiovascular: ABSENT: chest pain, dyspnea on exertion, edema Respiratory: ABSENT: cough, dyspnea, hemoptysis Gastrointestinal: PRESENT: nausea, vomiting, other - Soft stools. Musculoskeletal: PRESENT: other - Because of body aches muscle aches. Neurological: ABSENT: confusion, focal weakness, frequent falls Psychiatric: PRESENT: anxiety Endocrine: PRESENT: as per HPI Physical Exam Vital Signs: Temp Pulse Resp BP Pulse Ox 97.9 F 19 109/60 99 11/23/18 14:51 11/23/18 15:00 11/23/18 14:51 11/23/18 15:00 Intake & Output 11/22/18 11/23/18 11/24/18 06:59 06:59 06:59 Intake Total 1000 Balance 1000 Weight 70.76 kg General appearance: PRESENT: severe distress Head exam: PRESENT: atraumatic Eye exam: PRESENT: PERRLA Mouth exam: PRESENT: dry mucosa Neck exam: ABSENT: carotid bruit, JVD, lymphadenopathy, thyromegaly Respiratory exam: PRESENT: clear to auscultation colleen. ABSENT: rales, rhonchi, wheezes GI/Abdominal exam: PRESENT: normal bowel sounds, soft. ABSENT: tenderness Neurological exam: PRESENT: alert, awake, oriented to person, oriented to place, oriented to time, oriented to situation, CN II-XII grossly intact. ABSENT: motor sensory deficit Psychiatric exam: PRESENT: appropriate affect, normal mood. ABSENT: homicidal ideation, suicidal ideation Results Laboratory Results: 11/23/18 15:05 11/23/18 15:05 11/23/18 11/23/18 11/23/18 15:05 15:05 15:05 WBC 12.8 H RBC 4.36 Hgb 11.0 L Hct 36.0 MCV 83 MCH 25.3 L MCHC 30.7 L RDW 16.2 H Plt Count 328 Seg Neutrophils % 90.1 H Lymphocytes % 5.9 L Monocytes % 3.4 Eosinophils % 0.2 Basophils % 0.4 Absolute Neutrophils 11.5 H Absolute Lymphocytes 0.8 Absolute Monocytes 0.4 Absolute Eosinophils 0.0 Absolute Basophils 0.1 VBG pH VBG pCO2 VBG HCO3 VBG Base Excess Sodium 133.2 L Potassium 6.1 H* Chloride 103 Carbon Dioxide 11 L Anion Gap 19 BUN 43 H Creatinine 1.95 H Est GFR ( Amer) 33 L Est GFR (Non-Af Amer) 27 L Glucose 493 H* Lactic Acid 1.3 Calcium 8.7 Magnesium 1.9 Total Bilirubin 0.5 AST 16 ALT 23 Alkaline Phosphatase 144 H Total Protein 6.7 Albumin 3.5 Lipase 26.1 11/23/18 15:05 WBC RBC Hgb Hct MCV MCH MCHC RDW Plt Count Seg Neutrophils % Lymphocytes % Monocytes % Eosinophils % Basophils % Absolute Neutrophils Absolute Lymphocytes Absolute Monocytes Absolute Eosinophils Absolute Basophils VBG pH 7.19 L* VBG pCO2 28.5 L VBG HCO3 10.5 L VBG Base Excess -16.3 Sodium Potassium Chloride Carbon Dioxide Anion Gap BUN Creatinine Est GFR ( Amer) Est GFR (Non-Af Amer) Glucose Lactic Acid Calcium Magnesium Total Bilirubin AST ALT Alkaline Phosphatase Total Protein Albumin Lipase Assessment & Plan - Diagnosis (1) DKA (diabetic ketoacidoses) Qualifiers: Diabetes mellitus type: type 1 Diabetes mellitus complication detail: without coma Qualified Code(s): E10.10 - Type 1 diabetes mellitus with ketoacidosis without coma Is this a current diagnosis for this admission?: Yes Plan: 11/23/2018-patient is going to be placed in ICU. As an inpatient. She is going to be n.p.o. until the blood sugars are controlled. Started on IV fluids normal saline at 150 cc/h, insulin drip as per the hospital protocol, bicarb drip with 100 mg of bicarb and 1 L of sterile sterile water to run at 100 cc/h. Check the blood sugars hourly basis based on the protocol. Blood cultures urine culture were requested. Urine for ketones were requested. Hemoglobin A1c was requested. Be going to check the chemistry every 8 hours. Patient was started on IV Dilaudid 1 mg every 6 hours as needed for pain and also Zofran 4 mg IV every 4 as needed for nausea and vomitings. She is home medications are on hold. Stat ABG was requested. This blood gas shows pH of 7.19 bicarb is 10.5. We are going to check the urine analysis for ketones. (2) Acute renal failure Is this a current diagnosis for this admission?: Yes Plan: 11/23/2018-admission creatinine is 1.95 baseline creatinine is 1.3. Acute renal failure secondary to poor intake nausea and vomitings. Most likely prerenal. She has history of kidney pancreas transplant. I requested for nephrology consult. Check renal panel on regular basis. (3) Hyperkalemia Is this a current diagnosis for this admission?: Yes Plan: 11/23/2018 potassium level 6.1. We are going to recheck the potassium later on this evening. No EKG changes. With insulin drip and IV fluids and bicarb drip hopefully the potassium will improve. (4) Hyponatremia Is this a current diagnosis for this admission?: Yes Plan: 11/23/2018 admission sodium level is 133. Hyponatremia may be secondary to DKA. Patient is on IV fluids normal saline at 150 cc/h. (5) History of simultaneous kidney and pancreas transplant Is this a current diagnosis for this admission?: Yes Plan: 11/23/2018 patient is given the history of simultaneous kidney pancreas transplantation in 1999. She follows with transplant team and [place]. (6) Hypertension Is this a current diagnosis for this admission?: Yes Plan: 11/23/2018 patient has history of hypertension. But blood pressure today is 109/60. It may be due to persistent nausea and vomitings and poor oral intake. With IV fluids hypotension will be resolved. (7) Pulmonary embolism Is this a current diagnosis for this admission?: Yes Plan: 11/23/2018 patient has history of pulmonary embolism. She is on warfarin at home. We could withhold warfarin at this time. She is going to be on Lovenox 40 mg/kg subcu every 12 hours patient able to tolerate the oral medications. (9) Abdominal pain Is this a current diagnosis for this admission?: Yes Plan: 11/23/2018 patient is complaining of abdominal pain probably secondary to gastroparesis with persistent nausea and vomitings. I started her on Dilaudid 1 mg IV every 8 hours as needed. Hopefully it will resolve with improvement in blood sugars.
[2018-11-23] MEDS ORDERED: WATER FOR INJECTION,STERILE 1,000 ML with SODIUM BICARBONATE 100 MEQ IV ONE ×2 (17:30)
[2018-11-23 17:36] LABS: CREATINE KINASE MB 0.63 ng/mL (<4.55)
[2018-11-23 17:38] LABS: TROPONIN I < 0.012 ng/mL
[2018-11-23] MEDS ORDERED: ERTAPENEM SODIUM INJ 1 GM VIAL IV SCH (18:00)
[2018-11-23 18:22] LABS: ARTERIAL BLOOD BASE EXCESS -15.5 mmol/L; ARTERIAL BLOOD FIO2 ROOM AIR; ARTERIAL BLOOD H2CO3 0.83 mmol/L (1.05-1.35); ARTERIAL BLOOD HCO3 10.9 mmol/L (20-24); ARTERIAL BLOOD O2 SATURATION 84.4 % (94-98); ARTERIAL BLOOD PCO2 27.5 mmHg (35-45); ARTERIAL BLOOD PH 7.21 (7.35-7.45); ARTERIAL BLOOD TOTAL CO2 11.7 mmol/L (21-25)
[2018-11-23] MEDS: HYDROMORPHONE HCL INJ/PF 2 MG/ML AMPULE IV PRN (18:55)
[2018-11-23 19:38] LABS: APPEARANCE,URINE SLIGHTLY-CLOUDY; BILIRUBIN,URINE NEGATIVE (NEGATIVE); COLOR,URINE YELLOW; GLUCOSE, URINE >=500 mg/dL (NEGATIVE); KETONES,URINE 20 mg/dL (NEGATIVE); LEUKOCYTE ESTERASE,URINE TRACE (NEGATIVE); NITRITE,URINE NEGATIVE (NEGATIVE); PROTEIN,URINE 100 mg/dL (NEGATIVE); URINE SPECIFIC GRAVITY 1.017; UROBILINOGEN,URINE NEGATIVE mg/dL (<2.0)
[2018-11-23] MEDS: PROMETHAZINE HCL INJ 25 MG/1 ML VIAL IV PRN (20:42)
[2018-11-23 21:13] LABS: CREATINE KINASE MB 1.37 ng/mL (<4.55)
[2018-11-23 21:16] LABS: TROPONIN I < 0.012 ng/mL
[2018-11-23] MEDS ORDERED: FAMOTIDINE INJ/PF 20 MG/2 ML SDV IV SCH (22:00)
--- NOTE | 2018-11-24 | EKG REPORT ---
SEVERITY:- BORDERLINE ECG - SINUS RHYTHM BORDERLINE INFERIOR Q WAVES BORDERLINE T ABNORMALITIES, INFERIOR LEADS : Confirmed by: Rusty Carmona 23-Nov-2018 23:59:27
[2018-11-24 00:20] LABS: BLOOD UREA NITROGEN 40 mg/dL (7-20); CALCIUM 7.4 mg/dL (8.4-10.2); CHLORIDE 112 mmol/L (98-107); GLUCOSE 67 mg/dL (75-110); SODIUM 140.1 mmol/L (137-145)
[2018-11-24 00:39] LABS: ANION GAP 8 (5-19)
[2018-11-24 00:45] LABS: CARBON DIOXIDE 20 mmol/L (22-30)
[2018-11-24 00:46] LABS: POTASSIUM 4.1 mmol/L (3.6-5.0)
[2018-11-24] MEDS: HYDROMORPHONE HCL INJ/PF 2 MG/ML AMPULE IV PRN ×2 (01:34→20:16)
[2018-11-24] MEDS: NORMAL SALINE 1000 ML 1,000 ML IV PRN ×3 (01:57→17:30)
[2018-11-24 03:18] LABS: ARTERIAL BLOOD BASE EXCESS -4.5 mmol/L; ARTERIAL BLOOD H2CO3 1.19 mmol/L (1.05-1.35); ARTERIAL BLOOD HCO3 20.8 mmol/L (20-24); ARTERIAL BLOOD O2 SATURATION 91.8 % (94-98); ARTERIAL BLOOD PCO2 39.5 mmHg (35-45); ARTERIAL BLOOD PH 7.34 (7.35-7.45); ARTERIAL BLOOD PO2 65.2 mmHg (80-100)
[2018-11-24 03:20] LABS: ARTERIAL BLOOD FIO2 RA
[2018-11-24] MEDS: PROMETHAZINE HCL INJ 25 MG/1 ML VIAL IV PRN ×2 (05:33→11:40)
[2018-11-24 06:30] LABS: CREATINE KINASE MB 1.44 ng/mL (<4.55)
[2018-11-24 06:31] LABS: TROPONIN I < 0.012 ng/mL
[2018-11-24 06:54] LABS: ALANINE AMINOTRANSFERASE 24 U/L (9-52); ALBUMIN 2.9 g/dL (3.5-5.0); ALKALINE PHOSPHATASE 118 U/L (38-126); AMYLASE 35 U/L (30-110); ANION GAP 11 (5-19); ASPARTATE AMINO TRANSFERASE 34 U/L (14-36); BILIRUBIN,DIRECT 0.3 mg/dL (0.0-0.4); BILIRUBIN,TOTAL 0.3 mg/dL (0.2-1.3); BLOOD UREA NITROGEN 38 mg/dL (7-20); CALCIUM 7.6 mg/dL (8.4-10.2); CARBON DIOXIDE 19 mmol/L (22-30); CHLORIDE 113 mmol/L (98-107); CHOLESTEROL 148.74 mg/dL (0-200); GLUCOSE 146 mg/dL (75-110); LIPASE 11.9 U/L (23-300); POTASSIUM 4.3 mmol/L (3.6-5.0); SODIUM 143.3 mmol/L (137-145); TOTAL PROTEIN 5.6 g/dL (6.3-8.2); TRIGLYCERIDES 161 mg/dL (<150)
[2018-11-24 06:57] LABS: VLDL CHOLESTEROL 32.2 mg/dL (10-31)
[2018-11-24 07:05] LABS: DIRECT LDL 87 mg/dL (<100)
[2018-11-24 07:24] LABS: INTERNATIONAL RATION (INR) 11.34; PROTHROMBIN TIME 92.7 SEC (11.4-15.4)
[2018-11-24] MEDS ORDERED: INSULIN LISPRO 100 UNIT/ML 3 ML VIAL SUBCUT SCH (08:00)
[2018-11-24] MEDS: ONDANSETRON HCL INJ/PF 4 MG/2 ML SDV IV PRN ×2 (08:51→17:35)
[2018-11-24] MEDS ORDERED: FAMOTIDINE INJ/PF 20 MG/2 ML SDV IV SCH (10:00)
[2018-11-24] MEDS ORDERED: ENOXAPARIN SODIUM INJ 40 MG/0.4 ML DISP.SYRIN SUBCUT SCH (10:00)
[2018-11-24] MEDS ORDERED: DEXTROSE 50%-WATER 25 GM/50 ML DISP.SYRIN IV PRN ×2 (11:02)
[2018-11-24] MEDS ORDERED: GLUCAGON,HUMAN RECOMB 1 MG INJ IM PRN (11:02)
[2018-11-24] MEDS ORDERED: DEXTROSE 40% GEL 15 GM TUBE PO PRN ×2 (11:02)
[2018-11-24] MEDS ORDERED: NORMAL SALINE 1000 ML 1,000 ML IV PRN (11:24)
--- NOTE | 2018-11-24 11:34 | PDOC PROGRESS REPORT ---
Subjective Progress Note for:: 11/24/18 Subjective:: [id number] female with history of type 1 diabetes mellitus admitted for DKA. Blood sugars are improved. Latest blood sugar is 240. Patient also complaining of nausea and vomiting's. No acute events in the last 24 hours. Reason For Visit: DKA(DIABETIC KETOACIDOSES) Physical Exam Vital Signs: Temp Pulse Resp BP Pulse Ox 97.7 F 87 20 121/49 L 95 11/24/18 11:06 11/24/18 11:06 11/24/18 11:06 11/24/18 11:06 11/24/18 11:06 Intake & Output 11/23/18 11/24/18 11/25/18 06:59 06:59 06:59 Intake Total 4019 888 Output Total 350 Balance 3669 888 Weight 68.4 kg General appearance: PRESENT: mild distress Head exam: PRESENT: atraumatic Eye exam: PRESENT: PERRLA Mouth exam: PRESENT: dry mucosa Neck exam: ABSENT: carotid bruit, JVD, lymphadenopathy, thyromegaly Respiratory exam: PRESENT: clear to auscultation colleen. ABSENT: rales, rhonchi, wheezes Cardiovascular exam: PRESENT: RRR. ABSENT: diastolic murmur, rubs, systolic murmur GI/Abdominal exam: PRESENT: normal bowel sounds, soft. ABSENT: distended, guarding, mass, organolmegaly, rebound, tenderness Neurological exam: PRESENT: alert, awake, oriented to person, oriented to place, oriented to time, oriented to situation, CN II-XII grossly intact. ABSENT: motor sensory deficit Psychiatric exam: PRESENT: appropriate affect, normal mood. ABSENT: homicidal ideation, suicidal ideation Results Laboratory Results: 11/23/18 15:05 11/24/18 05:36 11/23/18 11/23/18 11/23/18 15:05 15:05 15:05 WBC 12.8 H RBC 4.36 Hgb 11.0 L Hct 36.0 MCV 83 MCH 25.3 L MCHC 30.7 L RDW 16.2 H Plt Count 328 Seg Neutrophils % 90.1 H Lymphocytes % 5.9 L Monocytes % 3.4 Eosinophils % 0.2 Basophils % 0.4 Absolute Neutrophils 11.5 H Absolute Lymphocytes 0.8 Absolute Monocytes 0.4 Absolute Eosinophils 0.0 Absolute Basophils 0.1 Carbonic Acid HCO3/H2CO3 Ratio ABG pH ABG pCO2 ABG pO2 ABG HCO3 ABG O2 Saturation ABG Base Excess VBG pH VBG pCO2 VBG HCO3 VBG Base Excess FiO2 Sodium 133.2 L Potassium 6.1 H* Chloride 103 Carbon Dioxide 11 L Anion Gap 19 BUN 43 H Creatinine 1.95 H Est GFR ( Amer) 33 L Est GFR (Non-Af Amer) 27 L Glucose 493 H* Lactic Acid 1.3 Calcium 8.7 Magnesium 1.9 Total Bilirubin 0.5 AST 16 ALT 23 Alkaline Phosphatase 144 H Total Protein 6.7 Albumin 3.5 Triglycerides Cholesterol LDL Cholesterol Direct VLDL Cholesterol HDL Cholesterol Amylase Lipase 26.1 TSH Urine Color Urine Appearance Urine pH Ur Specific [place] Urine Protein Urine Glucose (UA) Urine Ketones Urine Blood Urine Nitrite Ur Leukocyte Esterase Urine WBC (Auto) Urine RBC (Auto) 11/23/18 11/23/18 11/23/18 15:05 18:08 19:03 WBC RBC Hgb Hct MCV MCH MCHC RDW Plt Count Seg Neutrophils % Lymphocytes % Monocytes % Eosinophils % Basophils % Absolute Neutrophils Absolute Lymphocytes Absolute Monocytes Absolute Eosinophils Absolute Basophils Carbonic Acid 0.83 L HCO3/H2CO3 Ratio 13:1 ABG pH 7.21 L ABG pCO2 27.5 L ABG pO2 57.0 L ABG HCO3 10.9 L ABG O2 Saturation 84.4 L ABG Base Excess -15.5 VBG pH 7.19 L* VBG pCO2 28.5 L VBG HCO3 10.5 L VBG Base Excess -16.3 FiO2 ROOM AIR Sodium Potassium Chloride Carbon Dioxide Anion Gap BUN Creatinine Est GFR ( Amer) Est GFR (Non-Af Amer) Glucose Lactic Acid Calcium Magnesium Total Bilirubin AST ALT Alkaline Phosphatase Total Protein Albumin Triglycerides Cholesterol LDL Cholesterol Direct VLDL Cholesterol HDL Cholesterol Amylase Lipase TSH Urine Color YELLOW Urine Appearance SLIGHTLY-CLOUDY Urine pH 5.0 Ur Specific [place] 1.017 Urine Protein 100 H Urine Glucose (UA) >=500 H Urine Ketones 20 H Urine Blood LARGE H Urine Nitrite NEGATIVE Ur Leukocyte Esterase TRACE H Urine WBC (Auto) 10 Urine RBC (Auto) >182 11/23/18 11/23/18 11/24/18 20:25 23:42 03:00 WBC RBC Hgb Hct MCV MCH MCHC RDW Plt Count Seg Neutrophils % Lymphocytes % Monocytes % Eosinophils % Basophils % Absolute Neutrophils Absolute Lymphocytes Absolute Monocytes Absolute Eosinophils Absolute Basophils Carbonic Acid 1.19 HCO3/H2CO3 Ratio 17:1 ABG pH 7.34 L ABG pCO2 39.5 ABG pO2 65.2 L ABG HCO3 20.8 ABG O2 Saturation 91.8 L ABG Base Excess -4.5 VBG pH VBG pCO2 VBG HCO3 VBG Base Excess FiO2 RA Sodium 140.1 Potassium 4.1 D Chloride 112 H Carbon Dioxide 20 L Anion Gap 8 BUN 40 H Creatinine 1.56 H Est GFR ( Amer) 42 L Est GFR (Non-Af Amer) 35 L Glucose 67 L Lactic Acid 1.5 Calcium 7.4 L Magnesium Total Bilirubin AST ALT Alkaline Phosphatase Total Protein Albumin Triglycerides Cholesterol LDL Cholesterol Direct VLDL Cholesterol HDL Cholesterol Amylase Lipase TSH Urine Color Urine Appearance Urine pH Ur Specific [place] Urine Protein Urine Glucose (UA) Urine Ketones Urine Blood Urine Nitrite Ur Leukocyte Esterase Urine WBC (Auto) Urine RBC (Auto) 11/24/18 11/24/18 05:36 05:36 WBC RBC Hgb Hct MCV MCH MCHC RDW Plt Count Seg Neutrophils % Lymphocytes % Monocytes % Eosinophils % Basophils % Absolute Neutrophils Absolute Lymphocytes Absolute Monocytes Absolute Eosinophils Absolute Basophils Carbonic Acid HCO3/H2CO3 Ratio ABG pH ABG pCO2 ABG pO2 ABG HCO3 ABG O2 Saturation ABG Base Excess VBG pH VBG pCO2 VBG HCO3 VBG Base Excess FiO2 Sodium 143.3 Potassium 4.3 Chloride 113 H Carbon Dioxide 19 L Anion Gap 11 BUN 38 H Creatinine 1.76 H Est GFR ( Amer) 37 L Est GFR (Non-Af Amer) 30 L Glucose 146 H Lactic Acid Calcium 7.6 L Magnesium 1.5 L Total Bilirubin 0.3 AST 34 ALT 24 Alkaline Phosphatase 118 Total Protein 5.6 L Albumin 2.9 L Triglycerides 161 H Cholesterol 148.74 LDL Cholesterol Direct 87 VLDL Cholesterol 32.2 H HDL Cholesterol 39 L Amylase 35 Lipase 11.9 L TSH 2.21 Urine Color Urine Appearance Urine pH Ur Specific [place] Urine Protein Urine Glucose (UA) Urine Ketones Urine Blood Urine Nitrite Ur Leukocyte Esterase Urine WBC (Auto) Urine RBC (Auto) 11/23/18 11/23/18 11/24/18 15:05 20:25 05:36 CK-MB (CK-2) 0.63 1.37 1.44 Troponin I < 0.012 < 0.012 < 0.012 Assessment & Plan - Diagnosis (1) DKA (diabetic ketoacidoses) Qualifiers: Diabetes mellitus type: type 1 Diabetes mellitus complication detail: without coma Qualified Code(s): E10.10 - Type 1 diabetes mellitus with ketoacidosis without coma Is this a current diagnosis for this admission?: Yes Plan: 11/23/2018-patient is going to be placed in ICU. As an inpatient. She is going to be n.p.o. until the blood sugars are controlled. Started on IV fluids normal saline at 150 cc/h, insulin drip as per the hospital protocol, bicarb drip with 100 mg of bicarb and 1 L of sterile sterile water to run at 100 cc/h. Check the blood sugars hourly basis based on the protocol. Blood cultures urine culture were requested. Urine for ketones were requested. Hemoglobin A1c was requested. Be going to check the chemistry every 8 hours. Patient was started on IV Dilaudid 1 mg every 6 hours as needed for pain and also Zofran 4 mg IV every 4 as needed for nausea and vomitings. She is home medications are on hold. Stat ABG was requested. This blood gas shows pH of 7.19 bicarb is 10.5. We are going to check the urine analysis for ketones. 11/24/2018-patient was admitted with DKA bicarb was 11 at the time of admission and she was started on insulin drip IV fluids sodium bicarb drip blood sugars were improved last night insulin drip was discontinued she still on IV fluids and latest blood sugar is 240 hemoglobin A1c came back as 10.7 I am going to put her on a diabetic diet started on Lantus 30 units twice a day and also placed on insulin sliding scale before meals and at bedtime. Will continue the IV fluids are 75 cc/h. Dietary education was provided. Dietary consult was requested. Urine ketones came back as 20 yesterday. Latest ABG shows pH is 7.34 PCO2 39 PO2 65 bicarb is 20.8. Plan is to continue the present current management. (2) Acute renal failure Is this a current diagnosis for this admission?: Yes Plan: 11/23/2018-admission creatinine is 1.95 baseline creatinine is 1.3. Acute renal failure secondary to poor intake nausea and vomitings. Most likely prerenal. She has history of kidney pancreas transplant. I requested for nephrology consult. Check renal panel on regular basis. 11/24/2018-patient's admission creatinine is 1.95 baseline creatinine is 1.9 it was improved to 1.76 today. We plan to continue with the fluids at 75 cc/h. To check renal panel on regular basis. She has history of kidney pancreas transplant. Nephrology consult was requested. (3) Hyperkalemia Is this a current diagnosis for this admission?: Yes Plan: 11/23/2018 potassium level 6.1. We are going to recheck the potassium later on this evening. No EKG changes. With insulin drip and IV fluids and bicarb drip hopefully the potassium will improve. 11/24/2018 admission potassium 6.1 it was improved to 4.3 today. Hyperkalemia r esolved. (4) Hyponatremia Is this a current diagnosis for this admission?: Yes (5) History of simultaneous kidney and pancreas transplant Is this a current diagnosis for this admission?: Yes Plan: 11/23/2018 patient is given the history of simultaneous kidney pancreas transplantation in 1999. She follows with transplant team and [place]. 11/24/2018 patient has history of simultaneous kidney and pancreas transplant. She follows with the transplant team and [place]. She is on mycophenolate and tacrolimus at home. Be going to resume her home medications. (6) Hypertension Is this a current diagnosis for this admission?: Yes Plan: 11/23/2018 patient has history of hypertension. But blood pressure today is 109/60. It may be due to persistent nausea and vomitings and poor oral intake. With IV fluids hypotension will be resolved. 11/24/2018 patient was hypotensive in the emergency room. With IV fluids blood pressure was improved. His blood pressure is 121/50. Hypotension resolved. (7) Pulmonary embolism Is this a current diagnosis for this admission?: Yes Plan: 11/23/2018 patient has history of pulmonary embolism. She is on warfarin at home. We could withhold warfarin at this time. She is going to be on Lovenox 40 mg/kg subcu every 12 hours patient able to tolerate the oral medications. 11/24/2018 patient has history of pulmonary embolism she is on warfarin at home which was on hold since the admission. INR came back as 11.4 today. We are going to give vitamin K 10 mg p.o. 1 dose. plan to recheck INR tomorrow. (8) Abdominal pain Is this a current diagnosis for this admission?: Yes (9) Abdominal pain Is this a current diagnosis for this admission?: Yes Plan: 11/23/2018 patient is complaining of abdominal pain probably secondary to gastroparesis with persistent nausea and vomitings. I started her on Dilaudid 1 mg IV every 8 hours as needed. Hopefully it will resolve with improvement in blood sugars. 11/24/2018-patient is still complaining of abdominal pain but pain scale is much better according to the patient. She is on Dilaudid 1 mg IV every 4 as needed. We will continue the present management. - Time Time Spent with patient: 15-24 minutes Medications reviewed and adjusted accordingly: Yes Anticipated discharge: Home
[2018-11-24] MEDS: MAGNESIUM SULFATE/D5W 1 GM/100 ML RTUPB IV SCH ×2 (11:59→13:10)
--- NOTE | 2018-11-24 12:17 | PDOC CONSULTATION ---
Consultation Consult Date: 11/24/18 Consult reason:: AK I in the setting of kidney-pancreas transplant. High risk medications. History of Present Illness Admission Date/PCP: 11/23/18 16:01 History of Present Illness: STAR REYNAGA is a 53 year old female Past Medical History Cardiac Medical History: Reports: Pulmonary Embolism Endocrine Medical History: Reports: Diabetes Mellitus Type 1, Diabetes Mellitus Type 2 Complications of Diabetes: Reports: Autonomic Neuropathy, Gastroparesis, Nephropathy Renal/ Medical History: Reports: Chronic Kidney Disease Stage III, Other - Kidney pancreas transplant. GI Medical History: Reports: Gastroesophageal Reflux Disease Psychiatric Medical History: Reports: Depression, Tobacco Dependency Past Surgical History Past Surgical History: Reports: Appendectomy, Cholecystectomy, Hysterectomy, Orthopedic Surgery - Right elbow surgery, Tonsillectomy, Tubal Ligation, Other - Pancreatic-renal transplant done in 1999 Social History Smoking Status: Current Every Day Smoker Frequency of Alcohol Use: Rare Hx Recreational Drug Use: No Drugs: None Hx Prescription Drug Abuse: No - Advance Directive Resuscitation Status: Full Code Family History Parental Family History Reviewed: No Children Family History Reviewed: No Sibling(s) Family History Reviewed.: No Medication/Allergy Home Medications: Carvedilol [Coreg 6.25 mg Tablet] 6.25 mg PO Q12 11/24/18 Mycophenolate Sodium [Mycophenolic Acid] 360 mg PO BID 11/24/18 Tacrolimus Anhydrous [Prograf 1 mg Capsule] 5 mg PO DAILY 11/24/18 Warfarin Sodium [Coumadin 2 mg Tablet] 2 mg PO QHS 11/24/18 Zolpidem Tartrate [Ambien] 10 mg PO QHS 11/24/18 Allergies/Adverse Reactions: metoclopramide HCl [From Reglan] Allergy (Verified 07/14/17 13:13) Review of Systems Constitutional: PRESENT: anorexia, fatigue, weakness. ABSENT: chills, fever(s), headache(s), night sweats Nose, Mouth, and Throat: ABSENT: headache(s), mouth pain, sore throat Cardiovascular: PRESENT: dyspnea on exertion. ABSENT: chest pain, edema, orthropnea, palpitations Respiratory: PRESENT: dyspnea. ABSENT: hemoptysis Gastrointestinal: PRESENT: abdominal pain, bloating, constipation, diarrhea - Intermittent with alternating constipation., nausea, vomiting. ABSENT: coffee ground emesis, dysphagia, hematemesis Genitourinary: ABSENT: dysuria, hematuria Musculoskeletal: ABSENT: deformity, joint swelling Neurological: PRESENT: numbness - Of both lower extremities. ABSENT: abnormal movements, abnormal speech, convulsions, focal weakness Psychiatric: PRESENT: depression Hematologic/Lymphatic: ABSENT: easy bleeding, easy bruising, lymphadenopathy Physical Exam Vital Signs: Temp Pulse Resp BP Pulse Ox 97.7 F 87 20 121/49 L 95 11/24/18 11:06 11/24/18 11:06 11/24/18 11:06 11/24/18 11:06 11/24/18 11:06 Intake & Output 11/23/18 11/24/18 11/25/18 06:59 06:59 06:59 Intake Total 4019 888 Output Total 350 Balance 3669 888 Weight 68.4 kg General appearance: PRESENT: mild distress Eye exam: PRESENT: EOMI, PERRLA. ABSENT: conjunctiva pink, nystagmus Ear exam: PRESENT: normal external ear exam Mouth exam: PRESENT: neck supple. ABSENT: moist Neck exam: ABSENT: lymphadenopathy, meningismus, tenderness, thyromegaly, tracheal deviation Respiratory exam: PRESENT: clear to auscultation colleen. ABSENT: crackles Cardiovascular exam: PRESENT: +S1, +S2 GI/Abdominal exam: PRESENT: normal bowel sounds, soft. ABSENT: organomegaly, tenderness Extremities exam: ABSENT: pedal edema Neurological exam: PRESENT: alert, awake, oriented to person, oriented to place Psychiatric exam: PRESENT: anxious Skin exam: ABSENT: erythema, mottled, rash Results Laboratory Results: 11/23/18 15:05 11/24/18 05:36 11/23/18 11/23/18 11/23/18 15:05 15:05 15:05 WBC 12.8 H RBC 4.36 Hgb 11.0 L Hct 36.0 MCV 83 MCH 25.3 L MCHC 30.7 L RDW 16.2 H Plt Count 328 Seg Neutrophils % 90.1 H Lymphocytes % 5.9 L Monocytes % 3.4 Eosinophils % 0.2 Basophils % 0.4 Absolute Neutrophils 11.5 H Absolute Lymphocytes 0.8 Absolute Monocytes 0.4 Absolute Eosinophils 0.0 Absolute Basophils 0.1 Carbonic Acid HCO3/H2CO3 Ratio ABG pH ABG pCO2 ABG pO2 ABG HCO3 ABG O2 Saturation ABG Base Excess VBG pH VBG pCO2 VBG HCO3 VBG Base Excess FiO2 Sodium 133.2 L Potassium 6.1 H* Chloride 103 Carbon Dioxide 11 L Anion Gap 19 BUN 43 H Creatinine 1.95 H Est GFR ( Amer) 33 L Est GFR (Non-Af Amer) 27 L Glucose 493 H* Lactic Acid 1.3 Calcium 8.7 Magnesium 1.9 Total Bilirubin 0.5 AST 16 ALT 23 Alkaline Phosphatase 144 H Total Protein 6.7 Albumin 3.5 Triglycerides Cholesterol LDL Cholesterol Direct VLDL Cholesterol HDL Cholesterol Amylase Lipase 26.1 TSH Urine Color Urine Appearance Urine pH Ur Specific [place] Urine Protein Urine Glucose (UA) Urine Ketones Urine Blood Urine Nitrite Ur Leukocyte Esterase Urine WBC (Auto) Urine RBC (Auto) 11/23/18 11/23/18 11/23/18 15:05 18:08 19:03 WBC RBC Hgb Hct MCV MCH MCHC RDW Plt Count Seg Neutrophils % Lymphocytes % Monocytes % Eosinophils % Basophils % Absolute Neutrophils Absolute Lymphocytes Absolute Monocytes Absolute Eosinophils Absolute Basophils Carbonic Acid 0.83 L HCO3/H2CO3 Ratio 13:1 ABG pH 7.21 L ABG pCO2 27.5 L ABG pO2 57.0 L ABG HCO3 10.9 L ABG O2 Saturation 84.4 L ABG Base Excess -15.5 VBG pH 7.19 L* VBG pCO2 28.5 L VBG HCO3 10.5 L VBG Base Excess -16.3 FiO2 ROOM AIR Sodium Potassium Chloride Carbon Dioxide Anion Gap BUN Creatinine Est GFR ( Amer) Est GFR (Non-Af Amer) Glucose Lactic Acid Calcium Magnesium Total Bilirubin AST ALT Alkaline Phosphatase Total Protein Albumin Triglycerides Cholesterol LDL Cholesterol Direct VLDL Cholesterol HDL Cholesterol Amylase Lipase TSH Urine Color YELLOW Urine Appearance SLIGHTLY-CLOUDY Urine pH 5.0 Ur Specific [place] 1.017 Urine Protein 100 H Urine Glucose (UA) >=500 H Urine Ketones 20 H Urine Blood LARGE H Urine Nitrite NEGATIVE Ur Leukocyte Esterase TRACE H Urine WBC (Auto) 10 Urine RBC (Auto) >182 11/23/18 11/23/18 11/24/18 20:25 23:42 03:00 WBC RBC Hgb Hct MCV MCH MCHC RDW Plt Count Seg Neutrophils % Lymphocytes % Monocytes % Eosinophils % Basophils % Absolute Neutrophils Absolute Lymphocytes Absolute Monocytes Absolute Eosinophils Absolute Basophils Carbonic Acid 1.19 HCO3/H2CO3 Ratio 17:1 ABG pH 7.34 L ABG pCO2 39.5 ABG pO2 65.2 L ABG HCO3 20.8 ABG O2 Saturation 91.8 L ABG Base Excess -4.5 VBG pH VBG pCO2 VBG HCO3 VBG Base Excess FiO2 RA Sodium 140.1 Potassium 4.1 D Chloride 112 H Carbon Dioxide 20 L Anion Gap 8 BUN 40 H Creatinine 1.56 H Est GFR ( Amer) 42 L Est GFR (Non-Af Amer) 35 L Glucose 67 L Lactic Acid 1.5 Calcium 7.4 L Magnesium Total Bilirubin AST ALT Alkaline Phosphatase Total Protein Albumin Triglycerides Cholesterol LDL Cholesterol Direct VLDL Cholesterol HDL Cholesterol Amylase Lipase TSH Urine Color Urine Appearance Urine pH Ur Specific [place] Urine Protein Urine Glucose (UA) Urine Ketones Urine Blood Urine Nitrite Ur Leukocyte Esterase Urine WBC (Auto) Urine RBC (Auto) 11/24/18 11/24/18 05:36 05:36 WBC RBC Hgb Hct MCV MCH MCHC RDW Plt Count Seg Neutrophils % Lymphocytes % Monocytes % Eosinophils % Basophils % Absolute Neutrophils Absolute Lymphocytes Absolute Monocytes Absolute Eosinophils Absolute Basophils Carbonic Acid HCO3/H2CO3 Ratio ABG pH ABG pCO2 ABG pO2 ABG HCO3 ABG O2 Saturation ABG Base Excess VBG pH VBG pCO2 VBG HCO3 VBG Base Excess FiO2 Sodium 143.3 Potassium 4.3 Chloride 113 H Carbon Dioxide 19 L Anion Gap 11 BUN 38 H Creatinine 1.76 H Est GFR ( Amer) 37 L Est GFR (Non-Af Amer) 30 L Glucose 146 H Lactic Acid Calcium 7.6 L Magnesium 1.5 L Total Bilirubin 0.3 AST 34 ALT 24 Alkaline Phosphatase 118 Total Protein 5.6 L Albumin 2.9 L Triglycerides 161 H Cholesterol 148.74 LDL Cholesterol Direct 87 VLDL Cholesterol 32.2 H HDL Cholesterol 39 L Amylase 35 Lipase 11.9 L TSH 2.21 Urine Color Urine Appearance Urine pH Ur Specific [place] Urine Protein Urine Glucose (UA) Urine Ketones Urine Blood Urine Nitrite Ur Leukocyte Esterase Urine WBC (Auto) Urine RBC (Auto) 11/23/18 11/23/18 11/24/18 15:05 20:25 05:36 CK-MB (CK-2) 0.63 1.37 1.44 Troponin I < 0.012 < 0.012 < 0.012 Assessment & Plan - Diagnosis (1) Acute renal failure Is this a current diagnosis for this admission?: Yes Plan: The setting of diabetic ketoacidosis. Nonoliguric. Patient is got back on history of kidney pancreas transplant approximately 17 years ago. Adjust IV fluids. Acidosis partially corrected with infusion of sodium bicarbonate. Monitor closely. Rest management as per hospitalist. (2) Abdominal pain Is this a current diagnosis for this admission?: Yes Plan: The setting of persistent nausea and vomiting. 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 She has had reaction to metoclopramide in the past. (3) History of simultaneous kidney and pancreas transplant Is this a current diagnosis for this admission?: Yes Plan: Then approximately 17 years ago. Pancreas failed as of last year. She has a complicated diabetes mellitus with history of severe peripheral neuropathy and autonomic dysfunction. (5) Renal transplant recipient Plan: Done as part of kidney pancreas simultaneous transplant approximately 17 years ago. On high risk medications. Baseline creatinine around 1.5. She follows with [facility] as well as with Dr. Pretty in [place]. (6) DKA (diabetic ketoacidoses) Qualifiers: Diabetes mellitus type: type 1 Diabetes mellitus complication detail: without coma Qualified Code(s): E10.10 - Type 1 diabetes mellitus with ketoacidosis without coma Is this a current diagnosis for this admission?: Yes Plan: Titrate fluids. Manage meant as per hospitalist otherwise. Acidosis partially improving.
[2018-11-24] MEDS ORDERED: PHYTONADIONE 5 MG TABLET PO ONE (12:30)
[2018-11-24] MEDS: INSULIN REG, HUMAN 100 UNIT/ML 3 ML VIAL (PYX) SUBCUT PRN ×2 (13:07→17:42)
--- NOTE | 2018-11-24 13:16 | EKG REPORT ---
SEVERITY:- BORDERLINE ECG - SINUS RHYTHM BORDERLINE INFERIOR Q WAVES BORDERLINE T WAVE ABNORMALITIES : Confirmed by: Rusty Carmona 24-Nov-2018 13:14:55
[2018-11-24] MEDS: ERTAPENEM SODIUM 1 GM in NORMAL SALINE 50 ML IV SCH (17:26)
[2018-11-24] MEDS ORDERED: (PENDING PHARMACY ID) (Mycophenolate Sodium [Mycophenolic Acid] 360 MG) PO SCH (18:00)
[2018-11-24] MEDS ORDERED: INSULIN GLARGINE,HUM.REC.ANLOG 1,000 UNIT/10 ML UNIT SUBCUT SCH (18:00)
[2018-11-24] MEDS: CARVEDILOL 6.25 MG TABLET PO SCH (21:45)
[2018-11-24] MEDS: FAMOTIDINE 20 MG TABLET PO SCH (21:45)
[2018-11-24] MEDS: ZOLPIDEM TARTRATE 5 MG TABLET PO SCH (21:46)
[2018-11-24] MEDS: INSULIN GLARGINE,HUM.REC.ANLOG 1,000 UNIT/10 ML UNIT SUBCUT SCH (21:46)
[2018-11-24] MEDS ORDERED: (PENDING PHARMACY ID) (Zolpidem Tartrate [Ambien] 10 MG) PO SCH (22:00)
[2018-11-25] MEDS: NORMAL SALINE 1000 ML 1,000 ML IV PRN ×2 (04:39→12:15)
[2018-11-25] MEDS: HYDROMORPHONE HCL INJ/PF 2 MG/ML AMPULE IV PRN ×2 (06:04→20:16)
[2018-11-25] MEDS: ONDANSETRON HCL INJ/PF 4 MG/2 ML SDV IV PRN (06:04)
[2018-11-25 06:37] LABS: ALANINE AMINOTRANSFERASE 17 U/L (9-52); ALBUMIN 2.4 g/dL (3.5-5.0); ALKALINE PHOSPHATASE 89 U/L (38-126); ASPARTATE AMINO TRANSFERASE 17 U/L (14-36); BILIRUBIN,DIRECT 0.2 mg/dL (0.0-0.4); BILIRUBIN,TOTAL 0.3 mg/dL (0.2-1.3); BLOOD UREA NITROGEN 38 mg/dL (7-20); CALCIUM 7.4 mg/dL (8.4-10.2); GLUCOSE 54 mg/dL (75-110); POTASSIUM 3.5 mmol/L (3.6-5.0); TOTAL PROTEIN 5.1 g/dL (6.3-8.2)
[2018-11-25 06:42] LABS: INTERNATIONAL RATION (INR) 4.48
[2018-11-25 06:58] LABS: ANION GAP 7 (5-19); CARBON DIOXIDE 21 mmol/L (22-30); CHLORIDE 114 mmol/L (98-107); SODIUM 141.8 mmol/L (137-145)
[2018-11-25 07:03] LABS: PROTHROMBIN TIME 44.6 SEC (11.4-15.4)
[2018-11-25] MEDS: TACROLIMUS ANHYDROUS 1 MG CAPSULE PO SCH (09:33)
[2018-11-25] MEDS: FAMOTIDINE 20 MG TABLET PO SCH (09:33)
[2018-11-25] MEDS: CARVEDILOL 6.25 MG TABLET PO SCH ×2 (09:33→21:40)
[2018-11-25] MEDS: PROMETHAZINE HCL INJ 25 MG/1 ML VIAL IV PRN ×2 (09:43→20:17)
[2018-11-25] MEDS: INSULIN GLARGINE,HUM.REC.ANLOG 1,000 UNIT/10 ML UNIT SUBCUT SCH (10:34)
[2018-11-25] MEDS ORDERED: POTASSIUM CHLORIDE 20 MEQ/15 ML UDCUP PO ONE (11:29)
--- NOTE | 2018-11-25 11:39 | PDOC PROGRESS REPORT ---
Subjective Progress Note for:: 11/25/18 Subjective:: 2015 53-year-old female with history of type 1 diabetes mellitus admitted for DKA. Blood sugars are improved. Latest blood sugar is 240. Patient also complaining of nausea and vomiting's. No acute events in the last 24 hours. 11/25/2018-she was admitted with DKA. Last night blood sugars went all the way down to 46. She was started on diabetic diet yesterday and placed on Lantus 30 units twice a day. Hemoglobin is A1c came back 10.7. But because of the poor oral intake may be Lantus 30 units twice a day may be too high a cut on the Lantus to 10 units twice a day today. No other acute events. Patient says she is feeling much better today. She said she has less nausea less vomitings today. Reason For Visit: DKA(DIABETIC KETOACIDOSES) Physical Exam Vital Signs: Temp Pulse Resp BP Pulse Ox 98.3 F 80 18 113/51 L 92 11/25/18 07:54 11/25/18 07:54 11/25/18 07:54 11/25/18 07:54 11/25/18 07:54 Intake & Output 11/24/18 11/25/18 11/26/18 06:59 06:59 06:59 Intake Total 4019 2238 Output Total 350 1125 Balance 3669 1113 Weight 68.4 kg 70.7 kg General appearance: PRESENT: no acute distress Head exam: PRESENT: atraumatic Eye exam: PRESENT: PERRLA Mouth exam: PRESENT: moist Neck exam: ABSENT: carotid bruit, JVD, lymphadenopathy, thyromegaly Respiratory exam: PRESENT: clear to auscultation colleen. ABSENT: rales, rhonchi, wheezes Cardiovascular exam: PRESENT: RRR. ABSENT: diastolic murmur, rubs, systolic murmur GI/Abdominal exam: PRESENT: normal bowel sounds, soft. ABSENT: distended, guarding, mass, organolmegaly, rebound, tenderness Neurological exam: PRESENT: alert, awake, oriented to person, oriented to place, oriented to time, oriented to situation, CN II-XII grossly intact. ABSENT: motor sensory deficit Psychiatric exam: PRESENT: appropriate affect, normal mood. ABSENT: homicidal ideation, suicidal ideation Results Laboratory Results: 11/23/18 15:05 11/25/18 05:42 11/25/18 05:42 Sodium 141.8 Potassium 3.5 L Chloride 114 H Carbon Dioxide 21 L Anion Gap 7 BUN 38 H Creatinine 1.80 H Est GFR ( Amer) 36 L Est GFR (Non-Af Amer) 30 L Glucose 54 L Calcium 7.4 L Total Bilirubin 0.3 AST 17 ALT 17 Alkaline Phosphatase 89 Total Protein 5.1 L Albumin 2.4 L 11/23/18 11/23/18 11/24/18 15:05 20:25 05:36 CK-MB (CK-2) 0.63 1.37 1.44 Troponin I < 0.012 < 0.012 < 0.012 Assessment & Plan - Diagnosis (1) DKA (diabetic ketoacidoses) Qualifiers: Diabetes mellitus type: type 1 Diabetes mellitus complication detail: wit hout coma Qualified Code(s): E10.10 - Type 1 diabetes mellitus with ketoa cidosis without coma Is this a current diagnosis for this admission?: Yes Plan: 11/23/2018-patient is going to be placed in ICU. As an inpatient. She is going to be n.p.o. until the blood sugars are controlled. Started on IV fluids normal saline at 150 cc/h, insulin drip as per the hospital protocol, bicarb drip with 100 mg of bicarb and 1 L of sterile sterile water to run at 100 cc/h. Check the blood sugars hourly basis based on the protocol. Blood cultures urine culture were requested. Urine for ketones were requested. Hemoglobin A1c was requested. Be going to check the chemistry every 8 hours. Patient was started on IV Dilaudid 1 mg every 6 hours as needed for pain and also Zofran 4 mg IV every 4 as needed for nausea and vomitings. She is home medications are on hold. Stat ABG was requested. This blood gas shows pH of 7.19 bicarb is 10.5. We are going to check the urine analysis for ketones. 11/24/2018-patient was admitted with DKA bicarb was 11 at the time of admission and she was started on insulin drip IV fluids sodium bicarb drip blood sugars were improved last night insulin drip was discontinued she still on IV fluids and latest blood sugar is 240 hemoglobin A1c came back as 10.7 I am going to put her on a diabetic diet started on Lantus 30 units twice a day and also placed on insulin sliding scale before meals and at bedtime. Will continue the IV fluids are 75 cc/h. Dietary education was provided. Dietary consult was requested. Urine ketones came back as 20 yesterday. Latest ABG shows pH is 7.34 PCO2 39 PO2 65 bicarb is 20.8. Plan is to continue the present current management. 11/25/2018-DKA was resolved. Bicarb is 21 today. Hemoglobin A1c came back 10.7. Last night blood sugars went down to 46. I am going to adjust her insulin requirements. Dietary consult was requested. I am going to decrease the IV fluids from 125 cc/h to 75 cc/h. I am going to repeat the ABG today to see the bicarb level. Plan is to continue the present management. (2) Acute renal failure Is this a current diagnosis for this admission?: Yes Plan: 11/23/2018-admission creatinine is 1.95 baseline creatinine is 1.3. Acute renal failure secondary to poor intake nausea and vomitings. Most likely prerenal. She has history of kidney pancreas transplant. I requested for nephrology consult. Check renal panel on regular basis. 11/24/2018-patient's admission creatinine is 1.95 baseline creatinine is 1.9 it was improved to 1.76 today. We plan to continue with the fluids at 75 cc/h. To check renal panel on regular basis. She has history of kidney pancreas transplant. Nephrology consult was requested. 11/25/2018-patient's admission creatinine is 1.95. Yesterday's creatinine was 1.76. He shows improvement. I am going to repeat the chemistry today. Patient is on IV fluids at 75 cc/h. (3) Hyperkalemia Is this a current diagnosis for this admission?: Yes Plan: 11/25/2018 hyperkalemia was resolved patient potassium today is 3.5. I am going to give a one-time dose of potassium chloride 40 mg. (4) Hyponatremia Is this a current diagnosis for this admission?: Yes Plan: 11/23/2018 admission sodium level is 133. Hyponatremia may be secondary to DKA. Patient is on IV fluids normal saline at 150 cc/h. 11/25/2018-latest potassium is 141. Hyponatremia resolved. Is on IV fluids normal saline at 75 cc/h. (5) History of simultaneous kidney and pancreas transplant Is this a current diagnosis for this admission?: Yes Plan: 11/23/2018 patient is given the history of simultaneous kidney pancreas transpl antation in 1999. She follows with transplant team and [facility]. 11/24/2018 patient has history of simultaneous kidney and pancreas transplant. She follows with the transplant team and [facility]. She is on mycophenolate and tacrolimus at home. Be going to resume her home medications. 11/25/2018 patient has history of simultaneous kidney pancreas transplant. She is follows with transplant team and [facility]. Patient is under my phenolate and tacrolimus. We are going to check a tacrolimus. (6) Hypertension Is this a current diagnosis for this admission?: Yes Plan: 11/23/2018 patient has history of hypertension. But blood pressure today is 109/60. It may be due to persistent nausea and vomitings and poor oral intake. With IV fluids hypotension will be resolved. 11/24/2018 patient was hypotensive in the emergency room. With IV fluids blood pressure was improved. His blood pressure is 121/50. Hypotension resolved. 11/25/2018 at the time of admission patient is hypotensive hypotension was resol khadra. Today's blood pressure is 113/51. (7) Pulmonary embolism Is this a current diagnosis for this admission?: Yes Plan: 11/23/2018 patient has history of pulmonary embolism. She is on warfarin at home. We could withhold warfarin at this time. She is going to be on Lovenox 40 mg/kg subcu every 12 hours patient able to tolerate the oral medications. 11/24/2018 patient has history of pulmonary embolism she is on warfarin at home which was on hold since the admission. INR came back as 11.4 today. We are going to give vitamin K 10 mg p.o. 1 dose. plan to recheck INR tomorrow. 11/25/2018 patient has history of pulmonary embolism on warfarin at home. Yesterday's INR is 11.4. I give a vitamin K 10 mg p.o. 1 dose. Today's INR is 4.48. I am going to continue to hold warfarin. Plan to recheck INR tomorrow. (8) Abdominal pain Is this a current diagnosis for this admission?: Yes Plan: 11/23/2018 patient is complaining of abdominal pain probably secondary to gastroparesis with persistent nausea and vomitings. I started her on Dilaudid 1 mg IV every 8 hours as needed. Hopefully it will resolve with improvement in blood sugars. 11/24/2018-patient is still complaining of abdominal pain but pain scale is much better according to the patient. She is on Dilaudid 1 mg IV every 4 as needed. We will continue the present management. 11/25/2018-patient is not complaining of any abdominal pain today. She is on Dilaudid 1 mg IV every 4 as needed. Plan is to continue the present management. - Time Time Spent with patient: 25-34 minutes Medications reviewed and adjusted accordingly: Yes Anticipated discharge: Home
[2018-11-25 13:21] LABS: ABSOLUTE BASOPHILS # (AUTO) 0.1 10^3/uL (0.0-0.2); ABSOLUTE EOSINOPHILS # (AUTO) 0.1 10^3/uL (0.0-0.6); ABSOLUTE LYMPHOCYTES (AUTO) 1.5 10^3/uL (0.5-4.7); ABSOLUTE MONOCYTES (AUTO) 0.4 10^3/uL (0.1-1.4); BASOPHILS % (AUTO) 0.7 % (0-2); EOSINOPHILS % (AUTO) 0.8 % (0-6); HEMATOCRIT 27.5 % (36.0-47.0); LYMPHOCYTES % (AUTO) 14.7 % (13-45); MEAN CORPUSCULAR HEMOGLOBIN 25.5 pg (27.0-33.4); MEAN CORPUSCULAR HGB CONC 32.5 g/dL (32.0-36.0); MONOCYTES % (AUTO) 4.2 % (3-13); PLATELET COUNT 204 10^3/uL (150-450); RED CELL DISTRIBUTION WIDTH 16.3 % (11.5-14.0); SEGMENTED NEUTROPHILS % (AUTO) 79.6 % (42-78); TOTAL CELLS COUNTED % (AUTO) 100 %; WHITE BLOOD COUNT 10.1 10^3/uL (4.0-10.5)
[2018-11-25 13:24] LABS: HEMOGLOBIN 8.9 g/dL (12.0-15.5); MEAN CORPUSCULAR VOLUME 79 fl (80-97)
[2018-11-25 13:31] LABS: ALANINE AMINOTRANSFERASE 15 U/L (9-52); ALBUMIN 2.4 g/dL (3.5-5.0); ALKALINE PHOSPHATASE 92 U/L (38-126); ANION GAP 6 (5-19); ASPARTATE AMINO TRANSFERASE 13 U/L (14-36); BILIRUBIN,DIRECT 0.2 mg/dL (0.0-0.4); BILIRUBIN,TOTAL 0.4 mg/dL (0.2-1.3); BLOOD UREA NITROGEN 33 mg/dL (7-20); CALCIUM 7.7 mg/dL (8.4-10.2); CARBON DIOXIDE 20 mmol/L (22-30); CHLORIDE 113 mmol/L (98-107); GLUCOSE 135 mg/dL (75-110); POTASSIUM 3.7 mmol/L (3.6-5.0); SODIUM 139.2 mmol/L (137-145); TOTAL PROTEIN 4.8 g/dL (6.3-8.2)
--- NOTE | 2018-11-25 13:53 | Physician Advisory Note ---
Physician Advisor ProgressNote .: [facility], I have reviewed the medical record for this patient. Physician Advisor Statement: Please clarify: 1. Is baseline Cr 1.3, or 1.9? (Both are stated in Progress notes at present, which appears to be a contradiction.) 2. Is abd pain Acute or Chronic? Thanks! CK
[2018-11-25] MEDS: ERTAPENEM SODIUM 1 GM in NORMAL SALINE 50 ML IV SCH (18:18)
[2018-11-25] MEDS: INSULIN GLARGINE,HUM.REC.ANLOG 300 UNIT/3 ML INSULN.PEN SUBCUT SCH (21:35)
[2018-11-25] MEDS: ZOLPIDEM TARTRATE 5 MG TABLET PO SCH (21:40)
[2018-11-25] MEDS ORDERED: INSULIN GLARGINE,HUM.REC.ANLOG 1,000 UNIT/10 ML UNIT SUBCUT SCH ×2 (22:00)
[2018-11-26] MEDS: NORMAL SALINE 1000 ML 1,000 ML IV PRN (02:13)
[2018-11-26 05:50] LABS: ABSOLUTE BASOPHILS # (AUTO) 0.1 10^3/uL (0.0-0.2); ABSOLUTE EOSINOPHILS # (AUTO) 0.1 10^3/uL (0.0-0.6); ABSOLUTE LYMPHOCYTES (AUTO) 1.8 10^3/uL (0.5-4.7); ABSOLUTE MONOCYTES (AUTO) 0.3 10^3/uL (0.1-1.4); ABSOLUTE NEUT (AUTO) 3.7 10^3/uL (1.7-8.2); BASOPHILS % (AUTO) 1.1 % (0-2); EOSINOPHILS % (AUTO) 2.4 % (0-6); HEMATOCRIT 26.9 % (36.0-47.0); HEMOGLOBIN 8.7 g/dL (12.0-15.5); LYMPHOCYTES % (AUTO) 29.9 % (13-45); MEAN CORPUSCULAR HEMOGLOBIN 25.7 pg (27.0-33.4); MEAN CORPUSCULAR HGB CONC 32.5 g/dL (32.0-36.0); MEAN CORPUSCULAR VOLUME 79 fl (80-97); MONOCYTES % (AUTO) 5.2 % (3-13); PLATELET COUNT 161 10^3/uL (150-450); RED CELL DISTRIBUTION WIDTH 16.8 % (11.5-14.0); SEGMENTED NEUTROPHILS % (AUTO) 61.4 % (42-78); TOTAL CELLS COUNTED % (AUTO) 100 %; WHITE BLOOD COUNT 6.1 10^3/uL (4.0-10.5)
[2018-11-26 06:17] LABS: ALANINE AMINOTRANSFERASE 10 U/L (9-52); ALBUMIN 2.4 g/dL (3.5-5.0); ALKALINE PHOSPHATASE 85 U/L (38-126); ASPARTATE AMINO TRANSFERASE 16 U/L (14-36); BILIRUBIN,DIRECT 0.2 mg/dL (0.0-0.4); BILIRUBIN,TOTAL 0.3 mg/dL (0.2-1.3); BLOOD UREA NITROGEN 27 mg/dL (7-20); CALCIUM 7.9 mg/dL (8.4-10.2); GLUCOSE 69 mg/dL (75-110); POTASSIUM 4.3 mmol/L (3.6-5.0); TOTAL PROTEIN 4.9 g/dL (6.3-8.2)
[2018-11-26 06:22] LABS: CARBON DIOXIDE 21 mmol/L (22-30); CHLORIDE 116 mmol/L (98-107); SODIUM 140.5 mmol/L (137-145)
[2018-11-26 06:32] LABS: ANION GAP 4 (5-19)
[2018-11-26] MEDS: PROMETHAZINE HCL INJ 25 MG/1 ML VIAL IV PRN ×2 (06:39→20:55)
[2018-11-26 07:41] LABS: INTERNATIONAL RATION (INR) 1.19
[2018-11-26] MEDS: HYDROMORPHONE HCL INJ/PF 2 MG/ML AMPULE IV PRN ×2 (07:48→19:50)
[2018-11-26 07:50] LABS: PROTHROMBIN TIME 15.8 SEC (11.4-15.4)
[2018-11-26] MEDS: INSULIN GLARGINE,HUM.REC.ANLOG 300 UNIT/3 ML INSULN.PEN SUBCUT SCH ×2 (09:01→21:40)
[2018-11-26] MEDS: TACROLIMUS ANHYDROUS 1 MG CAPSULE PO SCH (09:03)
[2018-11-26] MEDS: CARVEDILOL 6.25 MG TABLET PO SCH ×2 (09:03→21:45)
[2018-11-26] MEDS: FAMOTIDINE 20 MG TABLET PO SCH (09:03)
--- NOTE | 2018-11-26 12:03 | PDOC PROGRESS REPORT ---
Subjective Progress Note for:: 11/26/18 Subjective:: 2015 53-year-old female with history of type 1 diabetes mellitus admitted for DKA. Blood sugars are improved. Latest blood sugar is 240. Patient also complaining of nausea and vomiting's. No acute events in the last 24 hours. 11/25/2018-she was admitted with DKA. Last night blood sugars went all the way down to 46. She was started on diabetic diet yesterday and placed on Lantus 30 units twice a day. Hemoglobin is A1c came back 10.7. But because of the poor oral intake may be Lantus 30 units twice a day may be too high a cut on the Lantus to 10 units twice a day today. No other acute events. Patient says she is feeling much better today. She said she has less nausea less vomitings today. 11/26/2018-patient states she is feeling much better today. Denies any nausea vomiting diarrhea. Patient's blood sugars are much better today. Patient says her appetite is improved. Reason For Visit: DKA(DIABETIC KETOACIDOSES) Physical Exam Vital Signs: Temp Pulse Resp BP Pulse Ox 98.5 F 80 13 145/62 H 94 11/26/18 07:52 11/26/18 07:52 11/26/18 07:52 11/26/18 07:52 11/26/18 07:52 Intake & Output 11/25/18 11/26/18 11/27/18 06:59 06:59 06:59 Intake Total 2238 2911 Output Total 1125 1350 Balance 1113 1561 Weight 70.7 kg 72.2 kg General appearance: PRESENT: no acute distress Head exam: PRESENT: atraumatic Eye exam: PRESENT: PERRLA Mouth exam: PRESENT: moist Neck exam: ABSENT: carotid bruit, JVD, lymphadenopathy, thyromegaly Respiratory exam: PRESENT: clear to auscultation colleen. ABSENT: rales, rhonchi, wheezes GI/Abdominal exam: PRESENT: normal bowel sounds, soft. ABSENT: distended, guarding, mass, organolmegaly, rebound, tenderness Extremities exam: PRESENT: full ROM. ABSENT: calf tenderness, clubbing, pedal edema Neurological exam: PRESENT: alert, awake, oriented to person, oriented to place, oriented to time, oriented to situation, CN II-XII grossly intact. ABSENT: motor sensory deficit Psychiatric exam: PRESENT: appropriate affect, normal mood. ABSENT: homicidal ideation, suicidal ideation Results Laboratory Results: 11/26/18 05:12 11/26/18 05:12 11/25/18 11/25/18 11/26/18 12:49 12:49 05:12 WBC 10.1 6.1 RBC 3.50 L 3.40 L Hgb 8.9 L D 8.7 L Hct 27.5 L 26.9 L MCV 79 L D 79 L MCH 25.5 L 25.7 L MCHC 32.5 32.5 RDW 16.3 H 16.8 H Plt Count 204 161 Seg Neutrophils % 79.6 H 61.4 Lymphocytes % 14.7 29.9 Monocytes % 4.2 5.2 Eosinophils % 0.8 2.4 Basophils % 0.7 1.1 Absolute Neutrophils 8.0 3.7 Absolute Lymphocytes 1.5 1.8 Absolute Monocytes 0.4 0.3 Absolute Eosinophils 0.1 0.1 Absolute Basophils 0.1 0.1 Sodium 139.2 Potassium 3.7 Chloride 113 H Carbon Dioxide 20 L Anion Gap 6 BUN 33 H Creatinine 1.64 H Est GFR ( Amer) 40 L Est GFR (Non-Af Amer) 33 L Glucose 135 H Calcium 7.7 L Magnesium 2.1 Total Bilirubin 0.4 AST 13 L ALT 15 Alkaline Phosphatase 92 Total Protein 4.8 L Albumin 2.4 L 11/26/18 05:12 WBC RBC Hgb Hct MCV MCH MCHC RDW Plt Count Seg Neutrophils % Lymphocytes % Monocytes % Eosinophils % Basophils % Absolute Neutrophils Absolute Lymphocytes Absolute Monocytes Absolute Eosinophils Absolute Basophils Sodium 140.5 Potassium 4.3 Chloride 116 H Carbon Dioxide 21 L Anion Gap 4 L BUN 27 H Creatinine 1.59 H Est GFR ( Amer) 41 L Est GFR (Non-Af Amer) 34 L Glucose 69 L Calcium 7.9 L Magnesium 2.0 Total Bilirubin 0.3 AST 16 ALT 10 Alkaline Phosphatase 85 Total Protein 4.9 L Albumin 2.4 L 11/23/18 11/23/18 11/24/18 15:05 20:25 05:36 CK-MB (CK-2) 0.63 1.37 1.44 Troponin I < 0.012 < 0.012 < 0.012 Assessment & Plan - Diagnosis (1) DKA (diabetic ketoacidoses) Qualifiers: Diabetes mellitus type: type 1 Diabetes mellitus complication detail: without coma Qualified Code(s): E10.10 - Type 1 diabetes mellitus with ketoacidosis without coma Is this a current diagnosis for this admission?: Yes Plan: 11/23/2018-patient is going to be placed in ICU. As an inpatient. She is going to be n.p.o. until the blood sugars are controlled. Started on IV fluids normal saline at 150 cc/h, insulin drip as per the hospital protocol, bicarb drip with 100 mg of bicarb and 1 L of sterile sterile water to run at 100 cc/h. Check the blood sugars hourly basis based on the protocol. Blood cultures urine culture were requested. Urine for ketones were requested. Hemoglobin A1c was requested. Be going to check the chemistry every 8 hours. Patient was started on IV Dilaudid 1 mg every 6 hours as needed for pain and also Zofran 4 mg IV every 4 as needed for nausea and vomitings. She is home medications are on hold. Stat ABG was requested. This blood gas shows pH of 7.19 bicarb is 10.5. We are going to check the urine analysis for ketones. 11/24/2018-patient was admitted with DKA bicarb was 11 at the time of admission and she was started on insulin drip IV fluids sodium bicarb drip blood sugars were improved last night insulin drip was discontinued she still on IV fluids and latest blood sugar is 240 hemoglobin A1c came back as 10.7 I am going to put her on a diabetic diet started on Lantus 30 units twice a day and also placed on insulin sliding scale before meals and at bedtime. Will continue the IV fluids are 75 cc/h. Dietary education was provided. Dietary consult was requested. Urine ketones came back as 20 yesterday. Latest ABG shows pH is 7.34 PCO2 39 PO2 65 bicarb is 20.8. Plan is to continue the present current management. 11/25/2018-DKA was resolved. Bicarb is 21 today. Hemoglobin A1c came back 10.7. Last night blood sugars went down to 46. I am going to adjust her insulin requirements. Dietary consult was requested. I am going to decrease the IV fluids from 125 cc/h to 75 cc/h. I am going to repeat the ABG today to see the bicarb level. Plan is to continue the present management. 11/26/2018 diabetic ketoacidosis is resolved. Patient's bicarb is 21. Latest blood sugar is a 78. Patient is on Lantus 10 units twice a day and insulin sliding scale. He is also on IV fluids normal saline at 50 cc/h. I am going to discontinue IV fluids today. Plan is to continue the present management. Ciarra hinds consult was requested. (2) Acute renal failure Is this a current diagnosis for this admission?: Yes Plan: 11/23/2018-admission creatinine is 1.95 baseline creatinine is 1.3. Acute renal failure secondary to poor intake nausea and vomitings. Most likely prerenal. She has history of kidney pancreas transplant. I requested for nephrology consult. Check renal panel on regular basis. 11/24/2018-patient's admission creatinine is 1.95 baseline creatinine is 1.9 it was improved to 1.76 today. We plan to continue with the fluids at 75 cc/h. To check renal panel on regular basis. She has history of kidney pancreas thorne splant. Nephrology consult was requested. 11/25/2018-patient's admission creatinine is 1.95. Yesterday's creatinine was 1.76. He shows improvement. I am going to repeat the chemistry today. Patient is on IV fluids at 75 cc/h. 11/26/2018-patient's admission creatinine is 1.95 it is improved to 1.59 today with IV fluids probably is prerenal. Her baseline creatinine is around 1.3. Plan is to continue to follow the renal panel. (3) Hyperkalemia Is this a current diagnosis for this admission?: Yes Plan: 11/25/2018 hyperkalemia was resolved patient potassium today is 3.5. I am going to give a one-time dose of potassium chloride 40 mg. 11/26/2018 hyperkalemia was resolved potassium level is 4.3 today. (4) Hyponatremia Is this a current diagnosis for this admission?: Yes Plan: 11/23/2018 admission sodium level is 133. Hyponatremia may be secondary to DKA. Patient is on IV fluids normal saline at 150 cc/h. 11/25/2018-latest potassium is 141. Hyponatremia resolved. Is on IV fluids normal saline at 75 cc/h. 11/26/2018 hyponatremia secondary to DKA resolved sodium level is 140 today. (5) History of simultaneous kidney and pancreas transplant Is this a current diagnosis for this admission?: Yes Plan: 11/23/2018 patient is given the history of simultaneous kidney pancreas transplantation in 2000. She follows with transplant team and [facility]. 11/24/2018 patient has history of simultaneous kidney and pancreas transplant. She follows with the transplant team and [facility]. She is on mycophenolate and tacrolimus at home. Be going to resume her home medications. 11/25/2018 patient has history of simultaneous kidney pancreas transplant. She is follows with transplant team and [facility]. Patient is under my phenolate and tacrolimus. We are going to check a tacrolimus. 11/26/2018 patient has history of simultaneous kidney pancreas transplant. She is on mycophenolate and tacrolimus. Tacrolimus is pending. (6) Hypertension Is this a current diagnosis for this admission?: Yes Plan: 11/23/2018 patient has history of hypertension. But blood pressure today is 109/60. It may be due to persistent nausea and vomitings and poor oral intake. With IV fluids hypotension will be resolved. 11/24/2018 patient was hypotensive in the emergency room. With IV fluids blood pressure was improved. His blood pressure is 121/50. Hypotension resolved. 11/25/2018 at the time of admission patient is hypotensive, blood pressure today is 137/71 stable. Hypotension was resolved. 11/26/2018. Blood pressure today is 137/71. Stable. (7) Pulmonary embolism Is this a current diagnosis for this admission?: Yes Plan: 11/23/2018 patient has history of pulmonary embolism. She is on warfarin at home. We could withhold warfarin at this time. She is going to be on Lovenox 40 mg/kg subcu every 12 hours patient able to tolerate the oral medications. 11/24/2018 patient has history of pulmonary embolism she is on warfarin at home which was on hold since the admission. INR came back as 11.4 today. We are going to give vitamin K 10 mg p.o. 1 dose. plan to recheck INR tomorrow. 11/25/2018 patient has history of pulmonary embolism on warfarin at home. Yesterday's INR is 11.4. I give a vitamin K 10 mg p.o. 1 dose. Today's INR is 4.48. I am going to continue to hold warfarin. Plan to recheck INR tomorrow. 11/26/2018 patient history of pulmonary embolism. At the time of admission INR is 11.4. She got 1 dose of 10 mg of vitamin K. Yesterday's INR is 4.48. INR today is 1.19. Going to restart the patient on warfarin 2 mg p.o. nightly.. (8) Abdominal pain Is this a current diagnosis for this admission?: Yes Plan: 11/23/2018 patient is complaining of abdominal pain probably secondary to gastroparesis with persistent nausea and vomitings. I started her on Dilaudid 1 mg IV every 8 hours as needed. Hopefully it will resolve with improvement in blood sugars. 11/24/2018-patient is still complaining of abdominal pain but pain scale is much better according to the patient. She is on Dilaudid 1 mg IV every 4 as needed. We will continue the present management. 11/25/2018-patient is not complaining of any abdominal pain today. She is on Dilaudid 1 mg IV every 4 as needed. Plan is to continue the present management. 11/26/2018-has history of chronic abdominal pain. Secondary to diabetic gastroparesis. - Time Time Spent with patient: 15-24 minutes Medications reviewed and adjusted accordingly: Yes Anticipated discharge: Home
[2018-11-26] MEDS: ERTAPENEM SODIUM 1 GM in NORMAL SALINE 50 ML IV SCH (17:21)
[2018-11-26] MEDS: WARFARIN SODIUM 2 MG TABLET PO SCH (21:40)
[2018-11-26] MEDS: ZOLPIDEM TARTRATE 5 MG TABLET PO SCH (21:45)
[2018-11-26] MEDS: INSULIN REG, HUMAN 100 UNIT/ML 3 ML VIAL (PYX) SUBCUT PRN (21:46)
[2018-11-27 08:57] LABS: ABSOLUTE EOSINOPHILS # (AUTO) 0.2 10^3/uL (0.0-0.6); ABSOLUTE MONOCYTES (AUTO) 0.3 10^3/uL (0.1-1.4); ABSOLUTE NEUT (AUTO) 3.5 10^3/uL (1.7-8.2); BASOPHILS % (AUTO) 0.8 % (0-2); EOSINOPHILS % (AUTO) 3.6 % (0-6); HEMATOCRIT 27.9 % (36.0-47.0); HEMOGLOBIN 9.1 g/dL (12.0-15.5); LYMPHOCYTES % (AUTO) 20.4 % (13-45); MEAN CORPUSCULAR HEMOGLOBIN 25.7 pg (27.0-33.4); MEAN CORPUSCULAR HGB CONC 32.4 g/dL (32.0-36.0); MEAN CORPUSCULAR VOLUME 79 fl (80-97); MONOCYTES % (AUTO) 6.4 % (3-13); PLATELET COUNT 119 10^3/uL (150-450); RED BLOOD COUNT 3.53 10^6/uL (3.72-5.28); RED CELL DISTRIBUTION WIDTH 16.4 % (11.5-14.0); SEGMENTED NEUTROPHILS % (AUTO) 68.8 % (42-78); TOTAL CELLS COUNTED % (AUTO) 100 %
[2018-11-27 08:59] LABS: INTERNATIONAL RATION (INR) 1.07; PROTHROMBIN TIME 14.5 SEC (11.4-15.4)
[2018-11-27 09:16] LABS: ALANINE AMINOTRANSFERASE 19 U/L (9-52); ALBUMIN 2.6 g/dL (3.5-5.0); ALKALINE PHOSPHATASE 88 U/L (38-126); ASPARTATE AMINO TRANSFERASE 18 U/L (14-36); BILIRUBIN,DIRECT 0.3 mg/dL (0.0-0.4); BILIRUBIN,TOTAL 0.6 mg/dL (0.2-1.3); BLOOD UREA NITROGEN 17 mg/dL (7-20); CALCIUM 8.1 mg/dL (8.4-10.2); GLUCOSE 154 mg/dL (75-110); TOTAL PROTEIN 5.3 g/dL (6.3-8.2)
[2018-11-27 09:22] LABS: ANION GAP 6 (5-19); CARBON DIOXIDE 22 mmol/L (22-30); CHLORIDE 108 mmol/L (98-107); SODIUM 136.2 mmol/L (137-145)
[2018-11-27] MEDS: INSULIN GLARGINE,HUM.REC.ANLOG 300 UNIT/3 ML INSULN.PEN SUBCUT SCH (09:37)
[2018-11-27] MEDS: FAMOTIDINE 20 MG TABLET PO SCH (09:38)
[2018-11-27] MEDS: CARVEDILOL 6.25 MG TABLET PO SCH ×2 (09:38→22:33)
[2018-11-27] MEDS: TACROLIMUS ANHYDROUS 1 MG CAPSULE PO SCH (09:39)
--- NOTE | 2018-11-27 10:53 | PDOC PROGRESS REPORT ---
Subjective Progress Note for:: 11/27/18 Subjective:: 2015 53-year-old female with history of type 1 diabetes mellitus admitted for DKA. Blood sugars are improved. Latest blood sugar is 240. Patient also complaining of nausea and vomiting's. No acute events in the last 24 hours. 11/25/2018-she was admitted with DKA. Last night blood sugars went all the way down to 46. She was started on diabetic diet yesterday and placed on Lantus 30 units twice a day. Hemoglobin is A1c came back 10.7. But because of the poor oral intake may be Lantus 30 units twice a day may be too high a cut on the Lantus to 10 units twice a day today. No other acute events. Patient says she is feeling much better today. She said she has less nausea less vomitings today. 11/26/2018-patient states she is feeling much better today. Denies any nausea vomiting diarrhea. Patient's blood sugars are much better today. Patient says her appetite is improved. 11/27/2018-patient blood sugar dropped to 40 last night. Lantus this morning was on hold. Presently she is on Lantus 10 units twice a day. Hemoglobin A1c is 10.7. The low blood sugars may be poor intake. Reason For Visit: DKA(DIABETIC KETOACIDOSES) Physical Exam Vital Signs: Temp Pulse Resp BP Pulse Ox 98.3 F 88 16 131/59 H 94 11/27/18 07:17 11/27/18 07:17 11/27/18 07:17 11/27/18 07:17 11/27/18 07:17 Intake & Output 11/26/18 11/27/18 11/28/18 06:59 06:59 06:59 Intake Total 2911 1701 Output Total 1350 2875 Balance 1561 -1174 Weight 72.2 kg 70 kg General appearance: PRESENT: mild distress Head exam: PRESENT: atraumatic Eye exam: PRESENT: PERRLA Mouth exam: PRESENT: moist Neck exam: ABSENT: carotid bruit, JVD, lymphadenopathy, thyromegaly Respiratory exam: PRESENT: clear to auscultation colleen. ABSENT: rales, rhonchi, wheezes GI/Abdominal exam: PRESENT: normal bowel sounds, soft. ABSENT: distended, guarding, mass, organolmegaly, rebound, tenderness Neurological exam: PRESENT: alert, awake, oriented to person, oriented to place, oriented to time, oriented to situation, CN II-XII grossly intact. ABSENT: mot or sensory deficit Psychiatric exam: PRESENT: appropriate affect, normal mood. ABSENT: homicidal ideation, suicidal ideation Results Laboratory Results: 11/27/18 08:28 11/27/18 08:28 11/27/18 11/27/18 08:28 08:28 WBC 5.0 RBC 3.53 L Hgb 9.1 L Hct 27.9 L MCV 79 L MCH 25.7 L MCHC 32.4 RDW 16.4 H Plt Count 119 L Seg Neutrophils % 68.8 Lymphocytes % 20.4 Monocytes % 6.4 Eosinophils % 3.6 Basophils % 0.8 Absolute Neutrophils 3.5 Absolute Lymphocytes 1.0 Absolute Monocytes 0.3 Absolute Eosinophils 0.2 Absolute Basophils 0.0 Sodium 136.2 L Potassium 4.0 Chloride 108 H Carbon Dioxide 22 Anion Gap 6 BUN 17 Creatinine 1.18 Est GFR ( Amer) 58 L Est GFR (Non-Af Amer) 48 L Glucose 154 H Calcium 8.1 L Magnesium 1.6 Total Bilirubin 0.6 AST 18 ALT 19 Alkaline Phosphatase 88 Total Protein 5.3 L Albumin 2.6 L 11/23/18 11/23/18 11/24/18 15:05 20:25 05:36 CK-MB (CK-2) 0.63 1.37 1.44 Troponin I < 0.012 < 0.012 < 0.012 Assessment & Plan - Diagnosis (1) DKA (diabetic ketoacidoses) Qualifiers: Diabetes mellitus type: type 1 Diabetes mellitus complication detail: without coma Qualified Code(s): E10.10 - Type 1 diabetes mellitus with ketoacidosis without coma Is this a current diagnosis for this admission?: Yes Plan: 11/23/2018-patient is going to be placed in ICU. As an inpatient. She is going to be n.p.o. until the blood sugars are controlled. Started on IV fluids normal saline at 150 cc/h, insulin drip as per the hospital protocol, bicarb drip with 100 mg of bicarb and 1 L of sterile sterile water to run at 100 cc/h. Check the blood sugars hourly basis based on the protocol. Blood cultures urine culture were requested. Urine for ketones were requested. Hemoglobin A1c was requested. Be going to check the chemistry every 8 hours. Patient was started on IV Dilaudid 1 mg every 6 hours as needed for pain and also Zofran 4 mg IV every 4 as needed for nausea and vomitings. She is home medications are on hold. Stat ABG was requested. This blood gas shows pH of 7.19 bicarb is 10.5. We are going to check the urine analysis for ketones. 11/24/2018-patient was admitted with DKA bicarb was 11 at the time of admission and she was started on insulin drip IV fluids sodium bicarb drip blood sugars were improved last night insulin drip was discontinued she still on IV fluids and latest blood sugar is 240 hemoglobin A1c came back as 10.7 I am going to put her on a diabetic diet started on Lantus 30 units twice a day and also placed on insulin sliding scale before meals and at bedtime. Will continue the IV fluids are 75 cc/h. Dietary education was provided. Dietary consult was requested. Urine ketones came back as 20 yesterday. Latest ABG shows pH is 7.34 PCO2 39 PO2 65 bicarb is 20.8. Plan is to continue the present current management. 11/25/2018-DKA was resolved. Bicarb is 21 today. Hemoglobin A1c came back 10.7. Last night blood sugars went down to 46. I am going to adjust her insulin requirements. Dietary consult was requested. I am going to decrease the IV fluids from 125 cc/h to 75 cc/h. I am going to repeat the ABG today to see the bicarb level. Plan is to continue the present management. 11/26/2018 diabetic ketoacidosis is resolved. Patient's bicarb is 21. Latest blood sugar is a 78. Patient is on Lantus 10 units twice a day and insulin sliding scale. He is also on IV fluids normal saline at 50 cc/h. I am going to discontinue IV fluids today. Plan is to continue the present management. Dietary consult was requested. 11/27/2018-DKA is resolved. Metabolic acidosis is resolved. Patient's blood sugars are running low. Lantus is on hold. Patient's hemoglobin A1c is 10.7. Dietary consult was done. (2) Acute renal failure Is this a current diagnosis for this admission?: Yes Plan: 11/23/2018-admission creatinine is 1.95 baseline creatinine is 1.3. Acute renal failure secondary to poor intake nausea and vomitings. Most likely prerenal. She has history of kidney pancreas transplant. I requested for nephrology con alissa. Check renal panel on regular basis. 11/24/2018-patient's admission creatinine is 1.95 baseline creatinine is 1.9 it was improved to 1.76 today. We plan to continue with the fluids at 75 cc/h. To check renal panel on regular basis. She has history of kidney pancreas transplant. Nephrology consult was requested. 11/25/2018-patient's admission creatinine is 1.95. Yesterday's creatinine was 1.76. He shows improvement. I am going to repeat the chemistry today. Patient is on IV fluids at 75 cc/h. 11/26/2018-patient's admission creatinine is 1.95 it is improved to 1.59 today with IV fluids probably is prerenal. Her baseline creatinine is around 1.3. Plan is to continue to follow the renal panel. 11/27/2018-patient's baseline creatinine is around 1.3. on admission 1.95. It was improved to 1.18. She is off the IV fluids since yesterday. (3) Hyperkalemia Is this a current diagnosis for this admission?: Yes Plan: 11/25/2018 hyperkalemia was resolved patient potassium today is 3.5. I am going to give a one-time dose of potassium chloride 40 mg. 11/26/2018 hyperkalemia was resolved potassium level is 4.3 today. 11/27/2018-potassium level is 4.0 today. Hyperkalemia is resolved. (4) Hyponatremia Is this a current diagnosis for this admission?: Yes Plan: 11/23/2018 admission sodium level is 133. Hyponatremia may be secondary to DKA. Patient is on IV fluids normal saline at 150 cc/h. 11/25/2018-latest potassium is 141. Hyponatremia resolved. Is on IV fluids normal saline at 75 cc/h. 11/26/2018 hyponatremia secondary to DKA resolved sodium level is 140 today. 11/27/2018 serum sodium level today is 136. Hyponatremia resolved. (5) History of simultaneous kidney and pancreas transplant Is this a current diagnosis for this admission?: Yes Plan: 11/23/2018 patient is given the history of simultaneous kidney pancreas transplantation in 2000. She follows with transplant team and [facility]. 11/24/2018 patient has history of simultaneous kidney and pancreas transplant. She follows with the transplant team and [facility]. She is on mycophenolate and tacrolimus at home. Be going to resume her home medications. 11/25/2018 patient has history of simultaneous kidney pancreas transplant. She is follows with transplant team and [facility]. Patient is under my phenolate and tacrolimus. We are going to check a tacrolimus. 11/26/2018 patient has history of simultaneous kidney pancreas transplant. She is on mycophenolate and tacrolimus. Tacrolimus is pending. 11/27/2018 plan is to continue the present management. (6) Hypertension Qualifiers: Hypertension type: essential hypertension Qualified Code(s): I10 - Essential (primary) hypertension Is this a current diagnosis for this admission?: Yes Plan: 11/23/2018 patient has history of hypertension. But blood pressure today is 109/60. It may be due to persistent nausea and vomitings and poor oral intake. With IV fluids hypotension will be resolved. 11/24/2018 patient was hypotensive in the emergency room. With IV fluids blood pressure was improved. His blood pressure is 121/50. Hypotension resolved. 11/25/2018 at the time of admission patient is hypotensive, blood pressure today is 137/71 stable. Hypotension was resolved. 11/26/2018. Blood pressure today is 137/71. Stable. 11/27/2018- BP is 131/0 stable (7) Pulmonary embolism Is this a current diagnosis for this admission?: Yes Plan: 11/23/2018 patient has history of pulmonary embolism. She is on warfarin at home. We could withhold warfarin at this time. She is going to be on Lovenox 40 mg/kg subcu every 12 hours patient able to tolerate the oral medications. 11/24/2018 patient has history of pulmonary embolism she is on warfarin at home which was on hold since the admission. INR came back as 11.4 today. We are going to give vitamin K 10 mg p.o. 1 dose. plan to recheck INR tomorrow. 11/25/2018 patient has history of pulmonary embolism on warfarin at home. Yesterday's INR is 11.4. I give a vitamin K 10 mg p.o. 1 dose. Today's INR is 4.48. I am going to continue to hold warfarin. Plan to recheck INR tomorrow. 11/26/2018 patient history of pulmonary embolism. At the time of admission INR is 11.4. She got 1 dose of 10 mg of vitamin K. Yesterday's INR is 4.48. INR today is 1.19. Going to restart the patient on warfarin 2 mg p.o. nightly.. 11/27/2018-inr today 1.07 .to check inr again tomorrow.pt is on warfarrin 2 mg po qhs (8) Abdominal pain Is this a current diagnosis for this admission?: Yes Plan: 11/23/2018 patient is complaining of abdominal pain probably secondary to gastroparesis with persistent nausea and vomitings. I started her on Dilaudid 1 mg IV every 8 hours as needed. Hopefully it will resolve with improvement in blood sugars. 11/24/2018-patient is still complaining of abdominal pain but pain scale is much better according to the patient. She is on Dilaudid 1 mg IV every 4 as needed. We will continue the present management. 11/25/2018-patient is not complaining of any abdominal pain today. She is on Dilaudid 1 mg IV every 4 as needed. Plan is to continue the present management. 11/26/2018-has history of chronic abdominal pain. Secondary to diabetic ga stroparesis. 11/27/2018-pt says pain is much better. - Time Time Spent with patient: 15-24 minutes Smoking Cessation Education: 3 to 10 minutes Medications reviewed and adjusted accordingly: Yes Anticipated discharge: Home
[2018-11-27] MEDS: ERTAPENEM SODIUM 1 GM in NORMAL SALINE 50 ML IV SCH (17:05)
[2018-11-27] MEDS: MAGNESIUM OXIDE 400 MG TABLET PO SCH (17:05)
[2018-11-27] MEDS: INSULIN REG, HUMAN 100 UNIT/ML 3 ML VIAL (PYX) SUBCUT PRN ×2 (17:06→22:55)
[2018-11-27] MEDS: HYDROMORPHONE HCL INJ/PF 2 MG/ML AMPULE IV PRN (22:32)
[2018-11-27] MEDS: ZOLPIDEM TARTRATE 5 MG TABLET PO SCH (22:34)
[2018-11-27] MEDS: WARFARIN SODIUM 2 MG TABLET PO SCH (22:52)
[2018-11-28] MEDS: PROMETHAZINE HCL INJ 25 MG/1 ML VIAL IV PRN ×2 (00:17→18:27)
[2018-11-28 06:18] LABS: ABSOLUTE EOSINOPHILS # (AUTO) 0.2 10^3/uL (0.0-0.6); ABSOLUTE LYMPHOCYTES (AUTO) 1.4 10^3/uL (0.5-4.7); ABSOLUTE MONOCYTES (AUTO) 0.3 10^3/uL (0.1-1.4); ABSOLUTE NEUT (AUTO) 2.3 10^3/uL (1.7-8.2); BASOPHILS % (AUTO) 0.9 % (0-2); HEMATOCRIT 26.5 % (36.0-47.0); HEMOGLOBIN 8.6 g/dL (12.0-15.5); LYMPHOCYTES % (AUTO) 32.3 % (13-45); MEAN CORPUSCULAR HEMOGLOBIN 25.8 pg (27.0-33.4); MEAN CORPUSCULAR HGB CONC 32.4 g/dL (32.0-36.0); MEAN CORPUSCULAR VOLUME 80 fl (80-97); MONOCYTES % (AUTO) 7.3 % (3-13); PLATELET COUNT 145 10^3/uL (150-450); RED BLOOD COUNT 3.33 10^6/uL (3.72-5.28); RED CELL DISTRIBUTION WIDTH 16.3 % (11.5-14.0); SEGMENTED NEUTROPHILS % (AUTO) 54.5 % (42-78); TOTAL CELLS COUNTED % (AUTO) 100 %; WHITE BLOOD COUNT 4.3 10^3/uL (4.0-10.5)
[2018-11-28 06:22] LABS: INTERNATIONAL RATION (INR) 1.07; PROTHROMBIN TIME 14.4 SEC (11.4-15.4)
[2018-11-28] MEDS: MAGNESIUM OXIDE 400 MG TABLET PO SCH ×2 (10:07→19:21)
[2018-11-28] MEDS: FAMOTIDINE 20 MG TABLET PO SCH (10:07)
[2018-11-28] MEDS: CARVEDILOL 6.25 MG TABLET PO SCH ×2 (10:07→21:51)
[2018-11-28] MEDS: TACROLIMUS ANHYDROUS 1 MG CAPSULE PO SCH (10:08)
[2018-11-28] MEDS: INSULIN REG, HUMAN 100 UNIT/ML 3 ML VIAL (PYX) SUBCUT PRN ×3 (10:08→21:52)
--- NOTE | 2018-11-28 10:47 | PDOC PROGRESS REPORT ---
Subjective Progress Note for:: 11/28/18 Subjective:: 2015 53-year-old female with history of type 1 diabetes mellitus admitted for DKA. Blood sugars are improved. Latest blood sugar is 240. Patient also complaining of nausea and vomiting's. No acute events in the last 24 hours. 11/25/2018-she was admitted with DKA. Last night blood sugars went all the way down to 46. She was started on diabetic diet yesterday and placed on Lantus 30 units twice a day. Hemoglobin is A1c came back 10.7. But because of the poor oral intake may be Lantus 30 units twice a day may be too high a cut on the Lantus to 10 units twice a day today. No other acute events. Patient says she is feeling much better today. She said she has less nausea less vomitings today. 11/26/2018-patient states she is feeling much better today. Denies any nausea vomiting diarrhea. Patient's blood sugars are much better today. Patient says her appetite is improved. 11/27/2018-patient blood sugar dropped to 40 last night. Lantus this morning was on hold. Presently she is on Lantus 10 units twice a day. Hemoglobin A1c is 10.7. The low blood sugars may be poor intake. 11/28/2018-patient latest blood sugar is 238 today. Patient's appetite is still poor. She is not on any Lantus. She is on insulin sliding scale. Dietary consult was done already. No acute events over the last 24 hours. Reason For Visit: DKA(DIABETIC KETOACIDOSES) Physical Exam Vital Signs: Temp Pulse Resp BP Pulse Ox 98.0 F 80 16 148/67 H 94 11/28/18 08:31 11/28/18 08:31 11/28/18 08:31 11/28/18 08:31 11/28/18 08:31 Intake & Output 11/27/18 11/28/18 11/29/18 06:59 06:59 06:59 Intake Total 1701 1027 Output Total 2875 3000 Balance -1173 Weight 70 kg 68.7 kg General appearance: PRESENT: no acute distress Eye exam: PRESENT: PERRLA Mouth exam: PRESENT: moist Neck exam: ABSENT: carotid bruit, JVD, lymphadenopathy, thyromegaly Respiratory exam: PRESENT: clear to auscultation colleen. ABSENT: rales, rhonchi, wheezes Cardiovascular exam: PRESENT: RRR. ABSENT: diastolic murmur, rubs, systolic murmur GI/Abdominal exam: PRESENT: normal bowel sounds, soft. ABSENT: distended, guarding, mass, organolmegaly, rebound, tenderness Neurological exam: PRESENT: alert, awake, oriented to person, oriented to place, oriented to time, oriented to situation, CN II-XII grossly intact. ABSENT: motor sensory deficit Psychiatric exam: PRESENT: appropriate affect, normal mood. ABSENT: homicidal ideation, suicidal ideation Results Laboratory Results: 11/28/18 06:02 11/28/18 08:30 11/28/18 11/28/18 11/28/18 06:02 06:02 08:30 WBC 4.3 RBC 3.33 L Hgb 8.6 L Hct 26.5 L MCV 80 MCH 25.8 L MCHC 32.4 RDW 16.3 H Plt Count 145 L Seg Neutrophils % 54.5 Lymphocytes % 32.3 Monocytes % 7.3 Eosinophils % 5.0 Basophils % 0.9 Absolute Neutrophils 2.3 Absolute Lymphocytes 1.4 Absolute Monocytes 0.3 Absolute Eosinophils 0.2 Absolute Basophils 0.0 Sodium Cancelled Cancelled Potassium Cancelled Cancelled Chloride Cancelled Cancelled Carbon Dioxide Cancelled Cancelled Anion Gap Cancelled Cancelled BUN Cancelled Cancelled Creatinine Cancelled Cancelled Est GFR ( Amer) Cancelled Cancelled Est GFR (Non-Af Amer) Cancelled Cancelled Glucose Cancelled Cancelled Calcium Cancelled Cancelled Magnesium Cancelled Cancelled Total Bilirubin Cancelled Cancelled AST Cancelled Cancelled ALT Cancelled Cancelled Alkaline Phosphatase Cancelled Cancelled Total Protein Cancelled Cancelled Albumin Cancelled Cancelled 11/23/18 11/23/18 11/24/18 15:05 20:25 05:36 CK-MB (CK-2) 0.63 1.37 1.44 Troponin I < 0.012 < 0.012 < 0.012 Assessment & Plan - Diagnosis (1) DKA (diabetic ketoacidoses) Qualifiers: Diabetes mellitus type: type 1 Diabetes mellitus complication detail: without coma Qualified Code(s): E10.10 - Type 1 diabetes mellitus with ketoacidosis without coma Is this a current diagnosis for this admission?: Yes Plan: 11/23/2018-patient is going to be placed in ICU. As an inpatient. She is going to be n.p.o. until the blood sugars are controlled. Started on IV fluids normal saline at 150 cc/h, insulin drip as per the hospital protocol, bicarb drip with 100 mg of bicarb and 1 L of sterile sterile water to run at 100 cc/h. Check the blood sugars hourly basis based on the protocol. Blood cultures urine culture were requested. Urine for ketones were requested. Hemoglobin A1c was requested. Be going to check the chemistry every 8 hours. Patient was started on IV Dilaudid 1 mg every 6 hours as needed for pain and also Zofran 4 mg IV every 4 as needed for nausea and vomitings. She is home medications are on hold. Stat ABG was requested. This blood gas shows pH of 7.19 bicarb is 10.5. We are going to check the urine analysis for ketones. 11/24/2018-patient was admitted with DKA bicarb was 11 at the time of admission and she was started on insulin drip IV fluids sodium bicarb drip blood sugars were improved last night insulin drip was discontinued she still on IV fluids and latest blood sugar is 240 hemoglobin A1c came back as 10.7 I am going to put her on a diabetic diet started on Lantus 30 units twice a day and also placed on insulin sliding scale before meals and at bedtime. Will continue the IV fluids are 75 cc/h. Dietary education was provided. Dietary consult was requested. Urine ketones came back as 20 yesterday. Latest ABG shows pH is 7.34 PCO2 39 PO2 65 bicarb is 20.8. Plan is to continue the present current management. 11/25/2018-DKA was resolved. Bicarb is 21 today. Hemoglobin A1c came back 10.7. Last night blood sugars went down to 46. I am going to adjust her insulin requirements. Dietary consult was requested. I am going to decrease the IV fluids from 125 cc/h to 75 cc/h. I am going to repeat the ABG today to see the bicarb level. Plan is to continue the present management. 11/26/2018 diabetic ketoacidosis is resolved. Patient's bicarb is 21. Latest blood sugar is a 78. Patient is on Lantus 10 units twice a day and insulin sliding scale. He is also on IV fluids normal saline at 50 cc/h. I am going to discontinue IV fluids today. Plan is to continue the present management. Dietary consult was requested. 11/27/2018-DKA is resolved. Metabolic acidosis is resolved. Patient's blood sugars are running low. Lantus is on hold. Patient's hemoglobin A1c is 10.7. Dietary consult was done. 11/28/2018, DKA and metabolic acidosis is resolved. Latest blood sugar is 238. Lantus is on hold because patient is very very poor appetite. Hemoglobin C at the same time is 10.7. Dietary consult was already done. Now time is a is 10:45 AM but the big question is still on the table and it was not touched yet. I discussed the diet with the patient requested to take small frequent meals because of the diabetes mellitus. (2) Acute renal failure Is this a current diagnosis for this admission?: Yes Plan: 11/23/2018-admission creatinine is 1.95 baseline creatinine is 1.3. Acute renal failure secondary to poor intake nausea and vomitings. Most likely prerenal. She has history of kidney pancreas transplant. I requested for nephrology consult. Check renal panel on regular basis. 11/24/2018-patient's admission creatinine is 1.95 baseline creatinine is 1.9 it was improved to 1.76 today. We plan to continue with the fluids at 75 cc/h. To check renal panel on regular basis. She has history of kidney pancreas transplant. Nephrology consult was requested. 11/25/2018-patient's admission creatinine is 1.95. Yesterday's creatinine was 1.76. He shows improvement. I am going to repeat the chemistry today. Patient is on IV fluids at 75 cc/h. 11/26/2018-patient's admission creatinine is 1.95 it is improved to 1.59 today with IV fluids probably is prerenal. Her baseline creatinine is around 1.3. Plan is to continue to follow the renal panel. 11/27/2018-patient's baseline creatinine is around 1.3. on admission 1.95. It was improved to 1.18. She is off the IV fluids since yesterday. 11/28/2018 patient's baseline creatinine is 1.5 on admission it was 1.95 improved to 1.18 yesterday today's labs are pending. Acute kidney injury is resolved. (3) Hyperkalemia Is this a current diagnosis for this admission?: Yes Plan: 11/25/2018 hyperkalemia was resolved patient potassium today is 3.5. I am going to give a one-time dose of potassium chloride 40 mg. 11/26/2018 hyperkalemia was resolved potassium level is 4.3 today. 11/27/2018-potassium level is 4.0 today. Hyperkalemia is resolved. 11/28/2018 latest potassium is 4.0 hypokalemia is resolved today's labs are pending. (4) Hyponatremia Is this a current diagnosis for this admission?: Yes Plan: 11/23/2018 admission sodium level is 133. Hyponatremia may be secondary to DKA. Patient is on IV fluids normal saline at 150 cc/h. 11/25/2018-latest potassium is 141. Hyponatremia resolved. Is on IV fluids normal saline at 75 cc/h. 11/26/2018 hyponatremia secondary to DKA resolved sodium level is 140 today. 11/27/2018 serum sodium level today is 136. Hyponatremia resolved. 11/28/2018-yesterday's sodium is 136 today's labs are pending hyponatremia is resolved. (5) History of simultaneous kidney and pancreas transplant Is this a current diagnosis for this admission?: Yes Plan: 11/23/2018 patient is given the history of simultaneous kidney pancreas transplantation in 1999. She follows with transplant team and [place]. 11/24/2018 patient has history of simultaneous kidney and pancreas transplant. She follows with the transplant team and [place]. She is on mycophenolate and tacrolimus at home. Be going to resume her home medications. 11/25/2018 patient has history of simultaneous kidney pancreas transplant. She is follows with transplant team and [place]. Patient is under my phenolate and tacrolimus. We are going to check a tacrolimus. 11/26/2018 patient has history of simultaneous kidney pancreas transplant. She is on mycophenolate and tacrolimus. Tacrolimus is pending. 11/27/2018 plan is to continue the present management. 11/28/2018 tacrolimus are pending patient is on mycophenolate and tacrolimus. Plan is to continue the present management. (6) Hypertension Qualifiers: Hypertension type: essential hypertension Qualified Code(s): I10 - Essential (primary) hypertension Is this a current diagnosis for this admission?: Yes Plan: 11/23/2018 patient has history of hypertension. But blood pressure today is 109/60. It may be due to persistent nausea and vomitings and poor oral intake. With IV fluids hypotension will be resolved. 11/24/2018 patient was hypotensive in the emergency room. With IV fluids blood pressure was improved. His blood pressure is 121/50. Hypotension resolved. 11/25/2018 at the time of admission patient is hypotensive, blood pressure today is 137/71 stable. Hypotension was resolved. 11/26/2018. Blood pressure today is 137/71. Stable. 11/27/2018- BP is 131/80 stable 11/28/2018 blood pressure slightly elevated today 148/67 going to closely monitor her blood pressure. I am going to put her on small dose of lisinopril because of the history of diabetes mellitus. (7) Pulmonary embolism Is this a current diagnosis for this admission?: Yes Plan: 11/23/2018 patient has history of pulmonary embolism. She is on warfarin at home. We could withhold warfarin at this time. She is going to be on Lovenox 40 mg/kg subcu every 12 hours patient able to tolerate the oral medications. 11/24/2018 patient has history of pulmonary embolism she is on warfarin at home which was on hold since the admission. INR came back as 11.4 today. We are going to give vitamin K 10 mg p.o. 1 dose. plan to recheck INR tomorrow. 11/25/2018 patient has history of pulmonary embolism on warfarin at home. Yesterday's INR is 11.4. I give a vitamin K 10 mg p.o. 1 dose. Today's INR is 4.48. I am going to continue to hold warfarin. Plan to recheck INR tomorrow. 11/26/2018 patient history of pulmonary embolism. At the time of admission INR is 11.4. She got 1 dose of 10 mg of vitamin K. Yesterday's INR is 4.48. INR today is 1.19. Going to restart the patient on warfarin 2 mg p.o. nightly.. 11/28/2018-INR is 1.07 today. Patient is on Coumadin 2 mg p.o. nightly. I increased the Coumadin levels dose to 3 mg p.o. nightly planning to check PT/INR tomorrow. (8) Abdominal pain Is this a current diagnosis for this admission?: Yes Plan: 11/23/2018 patient is complaining of abdominal pain probably secondary to gastroparesis with persistent nausea and vomitings. I started her on Dilaudid 1 mg IV every 8 hours as needed. Hopefully it will resolve with improvement in blood sugars. 11/24/2018-patient is still complaining of abdominal pain but pain scale is much better according to the patient. She is on Dilaudid 1 mg IV every 4 as needed. We will continue the present management. 11/25/2018-patient is not complaining of any abdominal pain today. She is on Dilaudid 1 mg IV every 4 as needed. Plan is to continue the present management. 11/26/2018-has history of chronic abdominal pain. Secondary to diabetic gastroparesis. 11/28/2018 patient is complaining of mild abdominal pain probably secondary to diabetic gastroparesis she is on as needed pain medications. - Time Time Spent with patient: 25-34 minutes Smoking Cessation Education: over 10 minutes Medications reviewed and adjusted accordingly: Yes Anticipated discharge: Home
[2018-11-28 11:21] LABS: ALANINE AMINOTRANSFERASE 16 U/L (9-52); ALBUMIN 2.7 g/dL (3.5-5.0); ALKALINE PHOSPHATASE 101 U/L (38-126); ANION GAP 9 (5-19); ASPARTATE AMINO TRANSFERASE 16 U/L (14-36); BILIRUBIN,DIRECT 0.3 mg/dL (0.0-0.4); BILIRUBIN,TOTAL 0.7 mg/dL (0.2-1.3); BLOOD UREA NITROGEN 17 mg/dL (7-20); CALCIUM 8.3 mg/dL (8.4-10.2); CARBON DIOXIDE 22 mmol/L (22-30); CHLORIDE 104 mmol/L (98-107); GLUCOSE 330 mg/dL (75-110); POTASSIUM 4.6 mmol/L (3.6-5.0); SODIUM 134.7 mmol/L (137-145); TOTAL PROTEIN 5.1 g/dL (6.3-8.2)
[2018-11-28] MEDS ORDERED: ONDANSETRON 4 MG TAB.RAPDIS ONE (17:46)
[2018-11-28] MEDS ORDERED: ONDANSETRON 4 MG TAB.RAPDIS PO ONE (18:30)
[2018-11-28] MEDS: ERTAPENEM SODIUM 1 GM in NORMAL SALINE 50 ML IV SCH (18:32)
[2018-11-28] MEDS: HYDROMORPHONE HCL INJ/PF 2 MG/ML AMPULE IV PRN (20:49)
[2018-11-28] MEDS: ZOLPIDEM TARTRATE 5 MG TABLET PO SCH (21:51)
[2018-11-28] MEDS ORDERED: WARFARIN SODIUM 3 MG TABLET PO SCH (22:00)
[2018-11-29] MEDS: PROMETHAZINE HCL INJ 25 MG/1 ML VIAL IV PRN ×2 (01:04→09:56)
[2018-11-29 06:22] LABS: HEMATOCRIT 27.4 % (36.0-47.0); MEAN CORPUSCULAR HEMOGLOBIN 26.1 pg (27.0-33.4); MEAN CORPUSCULAR VOLUME 79 fl (80-97); PLATELET COUNT 176 10^3/uL (150-450); RED BLOOD COUNT 3.46 10^6/uL (3.72-5.28); RED CELL DISTRIBUTION WIDTH 16.5 % (11.5-14.0); WHITE BLOOD COUNT 6.1 10^3/uL (4.0-10.5)
[2018-11-29 06:28] LABS: INTERNATIONAL RATION (INR) 1.07; PROTHROMBIN TIME 14.4 SEC (11.4-15.4)
[2018-11-29 06:42] LABS: ALANINE AMINOTRANSFERASE 12 U/L (9-52); ALBUMIN 2.8 g/dL (3.5-5.0); ALKALINE PHOSPHATASE 98 U/L (38-126); ANION GAP 8 (5-19); ASPARTATE AMINO TRANSFERASE 17 U/L (14-36); BILIRUBIN,DIRECT 0.3 mg/dL (0.0-0.4); BILIRUBIN,TOTAL 0.5 mg/dL (0.2-1.3); BLOOD UREA NITROGEN 22 mg/dL (7-20); CALCIUM 8.3 mg/dL (8.4-10.2); CARBON DIOXIDE 26 mmol/L (22-30); CHLORIDE 104 mmol/L (98-107); GLUCOSE 194 mg/dL (75-110); POTASSIUM 4.2 mmol/L (3.6-5.0); SODIUM 137.8 mmol/L (137-145); TOTAL PROTEIN 5.4 g/dL (6.3-8.2)
[2018-11-29 09:22] LABS: APPEARANCE,URINE CLEAR; BILIRUBIN,URINE NEGATIVE (NEGATIVE); COLOR,URINE YELLOW; GLUCOSE, URINE >=500 mg/dL (NEGATIVE); KETONES,URINE NEGATIVE (NEGATIVE); LEUKOCYTE ESTERASE,URINE NEGATIVE (NEGATIVE); NITRITE,URINE NEGATIVE (NEGATIVE); PROTEIN,URINE 30 mg/dL (NEGATIVE); URINE SPECIFIC GRAVITY 1.009; UROBILINOGEN,URINE NEGATIVE mg/dL (<2.0)
[2018-11-29] MEDS: MAGNESIUM OXIDE 400 MG TABLET PO SCH (09:41)
[2018-11-29] MEDS: FAMOTIDINE 20 MG TABLET PO SCH (09:41)
[2018-11-29] MEDS: CARVEDILOL 6.25 MG TABLET PO SCH (09:42)
[2018-11-29] MEDS: INSULIN REG, HUMAN 100 UNIT/ML 3 ML VIAL (PYX) SUBCUT PRN (09:42)
[2018-11-29] MEDS: TACROLIMUS ANHYDROUS 1 MG CAPSULE PO SCH (09:42)
[2018-11-29] MEDS ORDERED: LISINOPRIL 5 MG TABLET PO SCH (10:00)
--- NOTE | 2018-11-29 10:24 | PDOC PROGRESS REPORT ---
Subjective Progress Note for:: 11/29/18 Subjective:: 2017 53-year-old female with history of type 1 diabetes mellitus admitted for DKA. Blood sugars are improved. Latest blood sugar is 240. Patient also complaining of nausea and vomiting's. No acute events in the last 24 hours. 11/25/2018-she was admitted with DKA. Last night blood sugars went all the way down to 46. She was started on diabetic diet yesterday and placed on Lantus 30 units twice a day. Hemoglobin is A1c came back 10.7. But because of the poor oral intake may be Lantus 30 units twice a day may be too high a cut on the Lantus to 10 units twice a day today. No other acute events. Patient says she is feeling much better today. She said she has less nausea less vomitings today. 11/26/2018-patient states she is feeling much better today. Denies any nausea vomiting diarrhea. Patient's blood sugars are much better today. Patient says her appetite is improved. 11/27/2018-patient blood sugar dropped to 40 last night. Lantus this morning was on hold. Presently she is on Lantus 10 units twice a day. Hemoglobin A1c is 10.7. The low blood sugars may be poor intake. 11/28/2018-patient latest blood sugar is 238 today. Patient's appetite is still poor. She is not on any Lantus. She is on insulin sliding scale. Dietary consult was done already. No acute events over the last 24 hours. 2017 patient's latest blood sugar is 250. Patient's appetite is improved. The nurses are telling me patient is looks depressed because she lost her last week. Psych consult was requested waiting for their recommen dations. Physical therapy working with the patient today. Waiting for the PT recommendations. Patient is afebrile. Reason For Visit: DKA(DIABETIC KETOACIDOSES) Physical Exam Vital Signs: Temp Pulse Resp BP Pulse Ox 97.7 F 78 16 143/73 H 93 11/29/18 07:42 11/29/18 07:42 11/29/18 07:42 11/29/18 07:42 11/29/18 07:42 Intake & Output 11/28/18 11/29/18 11/30/18 06:59 06:59 06:59 Intake Total 1027 631 Output Total 5360 1424 Balance -[id number] Weight 68.7 kg 64.9 kg General appearance: PRESENT: no acute distress Eye exam: PRESENT: PERRLA Mouth exam: PRESENT: moist Neck exam: ABSENT: carotid bruit, JVD, lymphadenopathy, thyromegaly Respiratory exam: PRESENT: clear to auscultation colleen. ABSENT: rales, rhonchi, wheezes Cardiovascular exam: PRESENT: RRR. ABSENT: diastolic murmur, rubs, systolic murmur GI/Abdominal exam: PRESENT: normal bowel sounds, soft. ABSENT: distended, guard ing, mass, organolmegaly, rebound, tenderness Neurological exam: PRESENT: alert, awake, oriented to person, oriented to place, oriented to time, oriented to situation, CN II-XII grossly intact. ABSENT: motor sensory deficit Psychiatric exam: PRESENT: appropriate affect, normal mood. ABSENT: homicidal ideation, suicidal ideation Results Laboratory Results: 11/29/18 06:02 11/29/18 06:02 11/28/18 11/29/18 11/29/18 10:35 06:02 06:02 WBC 6.1 RBC 3.46 L Hgb 9.0 L Hct 27.4 L MCV 79 L MCH 26.1 L MCHC 33.0 RDW 16.5 H Plt Count 176 Sodium 134.7 L 137.8 Potassium 4.6 4.2 Chloride 104 104 Carbon Dioxide 22 26 Anion Gap 9 8 BUN 17 22 H Creatinine 1.08 1.27 H Est GFR ( Amer) > 60 54 L Est GFR (Non-Af Amer) 53 L 44 L Glucose 330 H 194 H Calcium 8.3 L 8.3 L Magnesium 1.5 L 1.8 Total Bilirubin 0.7 0.5 AST 16 17 ALT 16 12 Alkaline Phosphatase 101 98 Total Protein 5.1 L 5.4 L Albumin 2.7 L 2.8 L Urine Color Urine Appearance Urine pH Ur Specific [place] Urine Protein Urine Glucose (UA) Urine Ketones Urine Blood Urine Nitrite Ur Leukocyte Esterase Urine WBC (Auto) Urine RBC (Auto) Stool Occult Blood 11/29/18 11/29/18 06:50 09:10 WBC RBC Hgb Hct MCV MCH MCHC RDW Plt Count Sodium Potassium Chloride Carbon Dioxide Anion Gap BUN Creatinine Est GFR ( Amer) Est GFR (Non-Af Amer) Glucose Calcium Magnesium Total Bilirubin AST ALT Alkaline Phosphatase Total Protein Albumin Urine Color YELLOW Urine Appearance CLEAR Urine pH 7.0 Ur Specific [place] 1.009 Urine Protein 30 H Urine Glucose (UA) >=500 H Urine Ketones NEGATIVE Urine Blood SMALL H Urine Nitrite NEGATIVE Ur Leukocyte Esterase NEGATIVE Urine WBC (Auto) 3 Urine RBC (Auto) 34 Stool Occult Blood POSITIVE 11/23/18 21:30 Blood Blood Culture - Final NO GROWTH IN 5 DAYS 11/23/18 20:25 Blood Blood Culture - Final NO GROWTH IN 5 DAYS 11/23/18 11/23/18 11/24/18 15:05 20:25 05:36 CK-MB (CK-2) 0.63 1.37 1.44 Troponin I < 0.012 < 0.012 < 0.012 Assessment & Plan - Diagnosis (1) DKA (diabetic ketoacidoses) Qualifiers: Diabetes mellitus type: type 1 Diabetes mellitus complication detail: without coma Qualified Code(s): E10.10 - Type 1 diabetes mellitus with ketoacidosis without coma Is this a current diagnosis for this admission?: Yes Plan: 11/23/2018-patient is going to be placed in ICU. As an inpatient. She is going to be n.p.o. until the blood sugars are controlled. Started on IV fluids normal saline at 150 cc/h, insulin drip as per the hospital protocol, bicarb drip with 100 mg of bicarb and 1 L of sterile sterile water to run at 100 cc/h. Check the blood sugars hourly basis based on the protocol. Blood cultures urine culture were requested. Urine for ketones were requested. Hemoglobin A1c was requested. Be going to check the chemistry every 8 hours. Patient was started on IV Dilaudid 1 mg every 6 hours as needed for pain and also Zofran 4 mg IV every 4 as needed for nausea and vomitings. She is home medications are on hold. Stat ABG was requested. This blood gas shows pH of 7.19 bicarb is 10.5. We are going to check the urine analysis for ketones. 11/24/2018-patient was admitted with DKA bicarb was 11 at the time of admission and she was started on insulin drip IV fluids sodium bicarb drip blood sugars were improved last night insulin drip was discontinued she still on IV fluids and latest blood sugar is 240 hemoglobin A1c came back as 10.7 I am going to put her on a diabetic diet started on Lantus 30 units twice a day and also placed on insulin sliding scale before meals and at bedtime. Will continue the IV fluids are 75 cc/h. Dietary education was provided. Dietary consult was requested. Urine ketones came back as 20 yesterday. Latest ABG shows pH is 7.34 PCO2 39 PO2 65 bicarb is 20.8. Plan is to continue the present current management. 11/25/2018-DKA was resolved. Bicarb is 21 today. Hemoglobin A1c came back 10.7. Last night blood sugars went down to 46. I am going to adjust her insulin requirements. Dietary consult was requested. I am going to decrease the IV fluids from 125 cc/h to 75 cc/h. I am going to repeat the ABG today to see the bicarb level. Plan is to continue the present management. 11/26/2018 diabetic ketoacidosis is resolved. Patient's bicarb is 21. Latest blood sugar is a 78. Patient is on Lantus 10 units twice a day and insulin sliding scale. He is also on IV fluids normal saline at 50 cc/h. I am going to discontinue IV fluids today. Plan is to continue the present management. tary consult was requested. 11/27/2018-DKA is resolved. Metabolic acidosis is resolved. Patient's blood sugars are running low. Lantus is on hold. Patient's hemoglobin A1c is 10.7. Dietary consult was done. 11/28/2018, DKA and metabolic acidosis is resolved. Latest blood sugar is 238. Lantus is on hold because patient is very very poor appetite. Hemoglobin C at the same time is 10.7. Dietary consult was already done. Now time is a is 10:45 AM but the big question is still on the table and it was not touched yet. I discussed the diet with the patient requested to take small frequent meals because of the diabetes mellitus. 11/29/2018 DKA with metabolic acidosis resolved patient latest blood sugar is 250. Patient's appetite is improving. I am going to put her on Lantus 10 units 3 times a day. Along with sliding scale. [place] A1c is 10.7. Dietary consult was already done. (2) Acute renal failure Is this a current diagnosis for this admission?: Yes Plan: 11/23/2018-admission creatinine is 1.95 baseline creatinine is 1.3. Acute renal failure secondary to poor intake nausea and vomitings. Most likely prerenal. She has history of kidney pancreas transplant. I requested for nephrology consult. Check renal panel on regular basis. 11/24/2018-patient's admission creatinine is 1.95 baseline creatinine is 1.9 it was improved to 1.76 today. We plan to continue with the fluids at 75 cc/h. To check renal panel on regular basis. She has history of kidney pancreas transplant. Nephrology consult was requested. 11/25/2018-patient's admission creatinine is 1.95. Yesterday's creatinine was 1.76. He shows improvement. I am going to repeat the chemistry today. Patient is on IV fluids at 75 cc/h. 11/26/2018-patient's admission creatinine is 1.95 it is improved to 1.59 today with IV fluids probably is prerenal. Her baseline creatinine is around 1.3. Plan is to continue to follow the renal panel. 11/27/2018-patient's baseline creatinine is around 1.3. on admission 1.95. It was improved to 1.18. She is off the IV fluids since yesterday. 11/28/2018 patient's baseline creatinine is 1.5 on admission it was 1.95 improved to 1.18 yesterday today's labs are pending. Acute kidney injury is resolved. 11/29/2018-creatinine level today is 1.27 and acute renal failure resolved. (3) Hyperkalemia Is this a current diagnosis for this admission?: Yes (4) Hyponatremia Is this a current diagnosis for this admission?: Yes Plan: 11/23/2018 admission sodium level is 133. Hyponatremia may be secondary to DKA. Patient is on IV fluids normal saline at 150 cc/h. 11/25/2018-latest potassium is 141. Hyponatremia resolved. Is on IV fluids normal saline at 75 cc/h. 11/26/2018 hyponatremia secondary to DKA resolved sodium level is 140 today. 11/27/2018 serum sodium level today is 136. Hyponatremia resolved. 11/28/2018-yesterday's sodium is 136 today's labs are pending hyponatremia is resolved. 11/29/2018 today sodium is 137.8 on admission it was 133 hyponatremia resolved. (5) History of simultaneous kidney and pancreas transplant Is this a current diagnosis for this admission?: Yes Plan: 11/23/2018 patient is given the history of simultaneous kidney pancreas transplantation in 2000. She follows with transplant team and [place]. 11/24/2018 patient has history of simultaneous kidney and pancreas transplant. She follows with the transplant team and [place]. She is on mycophenolate and tacrolimus at home. Be going to resume her home medications. 11/25/2018 patient has history of simultaneous kidney pancreas transplant. She is follows with transplant team and [place]. Patient is under my phenolate and tacrolimus. We are going to check a tacrolimus. 11/26/2018 patient has history of simultaneous kidney pancreas transplant. She is on mycophenolate and tacrolimus. Tacrolimus is pending. 11/27/2018 plan is to continue the present management. 11/28/2018 tacrolimus are pending patient is on mycophenolate and tacrolimus. Plan is to continue the present management. 04/29/2018 patient has history of simultaneous kidney pancreas transplant tacrolimus levels are pending. She is on mycophenolate and tacrolimus. Nephrology consult was done during this hospital stay. (6) Hypertension Qualifiers: Hypertension type: essential hypertension Qualified Code(s): I10 - Essential (primary) hypertension Is this a current diagnosis for this admission?: Yes Plan: 11/23/2018 patient has history of hypertension. But blood pressure today is 109/60. It may be due to persistent nausea and vomitings and poor oral intake. With IV fluids hypotension will be resolved. 11/24/2018 patient was hypotensive in the emergency room. With IV fluids blood pressure was improved. His blood pressure is 121/50. Hypotension resolved. 11/25/2018 at the time of admission patient is hypotensive, blood pressure today is 137/71 stable. Hypotension was resolved. 11/26/2018. Blood pressure today is 137/71. Stable. 11/27/2018- BP is 131/80 stable 11/28/2018 blood pressure slightly elevated today 148/67 going to closely monitor her blood pressure. I am going to put her on small dose of lisinopril because of the history of diabetes mellitus. 11/29/2018-blood pressure is 143/73. Better controlled. She was started on lisinopril 5 mg p.o. daily. (7) Pulmonary embolism Is this a current diagnosis for this admission?: Yes Plan: 11/23/2018 patient has history of pulmonary embolism. She is on warfarin at home. We could withhold warfarin at this time. She is going to be on Lovenox 40 mg/kg subcu every 12 hours patient able to tolerate the oral medications. 11/24/2018 patient has history of pulmonary embolism she is on warfarin at home which was on hold since the admission. INR came back as 11.4 today. We are going to give vitamin K 10 mg p.o. 1 dose. plan to recheck INR tomorrow. 11/25/2018 patient has history of pulmonary embolism on warfarin at home. Yesterday's INR is 11.4. I give a vitamin K 10 mg p.o. 1 dose. Today's INR is 4.48. I am going to continue to hold warfarin. Plan to recheck INR tomorrow. 11/26/2018 patient history of pulmonary embolism. At the time of admission INR is 11.4. She got 1 dose of 10 mg of vitamin K. Yesterday's INR is 4.48. INR today is 1.19. Going to restart the patient on warfarin 2 mg p.o. nightly.. 11/28/2018-INR is 1.07 today. Patient is on Coumadin 2 mg p.o. nightly. I increased the Coumadin levels dose to 3 mg p.o. nightly planning to check PT/INR tomorrow. 11/29/2018 INR is still 1.07 she is on Coumadin 3 mg p.o. nightly I am going to recheck INR tomorrow. (8) Abdominal pain Is this a current diagnosis for this admission?: Yes - Time Time Spent with patient: 15-24 minutes Smoking Cessation Education: 3 to 10 minutes Medications reviewed and adjusted accordingly: Yes Anticipated discharge: Home
[2018-11-29 11:00] LABS: INTERNATIONAL RATION (INR) 1.09; PROTHROMBIN TIME 14.6 SEC (11.4-15.4)
[2018-11-29 12:48] VITALS: BP 145/66
[2018-11-29] MEDS ORDERED: INSULIN GLARGINE,HUM.REC.ANLOG 300 UNIT/3 ML INSULN.PEN SUBCUT SCH (13:00)
--- NOTE | 2018-11-29 17:32 | PDOC DISCHARGE SUMMARY ---
General - Admit/Disc Date/PCP Admission Date/Primary Care Provider: 11/23/18 16:01 Discharge Date: 11/29/18 - pt signed AMA - Discharge Diagnosis (1) DKA (diabetic ketoacidoses) Is this a current diagnosis for this admission?: Yes Summary: 11/23/2018-patient is going to be placed in ICU. As an inpatient. She is going to be n.p.o. until the blood sugars are controlled. Started on IV fluids normal saline at 150 cc/h, insulin drip as per the hospital protocol, bicarb drip with 100 mg of bicarb and 1 L of sterile sterile water to run at 100 cc/h. Check the blood sugars hourly basis based on the protocol. Blood cultures urine culture were requested. Urine for ketones were requested. Hemoglobin A1c was requested. Be going to check the chemistry every 8 hours. Patient was started on IV Dilaudid 1 mg every 6 hours as needed for pain and also Zofran 4 mg IV every 4 as needed for nausea and vomitings. She is home medications are on hold. Stat ABG was requested. This blood gas shows pH of 7.19 bicarb is 10.5. We are going to check the urine analysis for ketones. 11/24/2018-patient was admitted with DKA bicarb was 11 at the time of admission and she was started on insulin drip IV fluids sodium bicarb drip blood sugars were improved last night insulin drip was discontinued she still on IV fluids and latest blood sugar is 240 hemoglobin A1c came back as 10.7 I am going to put her on a diabetic diet started on Lantus 30 units twice a day and also placed on insulin sliding scale before meals and at bedtime. Will continue the IV fluids are 75 cc/h. Dietary education was provided. Dietary consult was requested. Urine ketones came back as 20 yesterday. Latest ABG shows pH is 7.34 PCO2 39 PO2 65 bicarb is 20.8. Plan is to continue the present current management. 11/25/2018-DKA was resolved. Bicarb is 21 today. Hemoglobin A1c came back 10.7. Last night blood sugars went down to 46. I am going to adjust her insulin requirements. Dietary consult was requested. I am going to decrease the IV fluids from 125 cc/h to 75 cc/h. I am going to repeat the ABG today to see the bicarb level. Plan is to continue the present management. 11/26/2018 diabetic ketoacidosis is resolved. Patient's bicarb is 21. Latest blood sugar is a 78. Patient is on Lantus 10 units twice a day and insulin sliding scale. He is also on IV fluids normal saline at 50 cc/h. I am going to discontinue IV fluids today. Plan is to continue the present management. Dietary consult was requested. 11/27/2018-DKA is resolved. Metabolic acidosis is resolved. Patient's blood sugars are running low. Lantus is on hold. Patient's hemoglobin A1c is 10.7. Dietary consult was done. 11/28/2018, DKA and metabolic acidosis is resolved. Latest blood sugar is 238. Lantus is on hold because patient is very very poor appetite. Hemoglobin C at the same time is 10.7. Dietary consult was already done. Now time is a is 10:45 AM but the big question is still on the table and it was not touched yet. I discussed the diet with the patient requested to take small frequent meals because of the diabetes mellitus. 11/29/2018 DKA with metabolic acidosis resolved patient latest blood sugar is 250. Patient's appetite is improving. I am going to put her on Lantus 10 units 3 times a day. Along with sliding scale. Globin A1c is 10.7. Dietary consult was already done. 11/29/2018-patient signed AMA around 2 PM today I tried to convince her to stay another day because I am in the process of adjusting her insulin requirements and also with her daughter she needs psychiatric evaluation because she is depressed due to the fact that she lost her 1 week ago. And PT is also working with the patient to see if she needed any home health but the patient was decided to sign AMA. Despite extensive communication by me and the nurses to her she prefers to go home. (2) Acute renal failure Is this a current diagnosis for this admission?: Yes Summary: 11/23/2018-admission creatinine is 1.95 baseline creatinine is 1.3. Acute renal failure secondary to poor intake nausea and vomitings. Most likely prerenal. She has history of kidney pancreas transplant. I requested for nephrology cons ult. Check renal panel on regular basis. 11/24/2018-patient's admission creatinine is 1.95 baseline creatinine is 1.9 it was improved to 1.76 today. We plan to continue with the fluids at 75 cc/h. To check renal panel on regular basis. She has history of kidney pancreas transplant. Nephrology consult was requested. 11/25/2018-patient's admission creatinine is 1.95. Yesterday's creatinine was 1.76. He shows improvement. I am going to repeat the chemistry today. Patient is on IV fluids at 75 cc/h. 11/26/2018-patient's admission creatinine is 1.95 it is improved to 1.59 today with IV fluids probably is prerenal. Her baseline creatinine is around 1.3. Plan is to continue to follow the renal panel. 11/27/2018-patient's baseline creatinine is around 1.3. on admission 1.95. It was improved to 1.18. She is off the IV fluids since yesterday. 11/28/2018 patient's baseline creatinine is 1.5 on admission it was 1.95 improved to 1.18 yesterday today's labs are pending. Acute kidney injury is resolved. 11/29/2018-creatinine level today is 1.27 and acute renal failure resolved. 11/29/2018 acute renal failure is resolved. (3) Hyperkalemia Is this a current diagnosis for this admission?: Yes Summary: Hyperkalemia is resolved. (4) Hyponatremia Is this a current diagnosis for this admission?: Yes Summary: 11/23/2018 admission sodium level is 133. Hyponatremia may be secondary to DKA. Patient is on IV fluids normal saline at 150 cc/h. 11/25/2018-latest potassium is 141. Hyponatremia resolved. Is on IV fluids normal saline at 75 cc/h. 11/26/2018 hyponatremia secondary to DKA resolved sodium level is 140 today. 11/27/2018 serum sodium level today is 136. Hyponatremia resolved. 11/28/2018-yesterday's sodium is 136 today's labs are pending hyponatremia is resolved. 11/29/2018 today sodium is 137.8 on admission it was 133 hyponatremia resolved. 11/29/2018 time is 5:30 PM hyponatremia was resolved patient signed AMA and left the hospital. (5) History of simultaneous kidney and pancreas transplant Is this a current diagnosis for this admission?: Yes Summary: 11/23/2018 patient is given the history of simultaneous kidney pancreas transplantation in 1999. She follows with transplant team and [facility]. 11/24/2018 patient has history of simultaneous kidney and pancreas transplant. She follows with the transplant team and [facility]. She is on mycophenolate and tacrolimus at home. Be going to resume her home medications. 11/25/2018 patient has history of simultaneous kidney pancreas transplant. She is follows with transplant team and [facility]. Patient is under my phenolate and tacrolimus. We are going to check a tacrolimus. 11/26/2018 patient has history of simultaneous kidney pancreas transplant. She is on mycophenolate and tacrolimus. Tacrolimus is pending. 11/27/2018 plan is to continue the present management. 11/28/2018 tacrolimus are pending patient is on mycophenolate and tacrolimus. Plan is to continue the present management. 11/29/2018 patient has history of simultaneous kidney pancreas transplant tacrolimus levels are pending. She is on mycophenolate and tacrolimus. Nephrology consult was done during this hospital stay. (6) Hypertension Is this a current diagnosis for this admission?: Yes Summary: 11/23/2018 patient has history of hypertension. But blood pressure today is 109/60. It may be due to persistent nausea and vomitings and poor oral intake. With IV fluids hypotension will be resolved. 11/24/2018 patient was hypotensive in the emergency room. With IV fluids blood pressure was improved. His blood pressure is 121/50. Hypotension resolved. 11/25/2018 at the time of admission patient is hypotensive, blood pressure today is 137/71 stable. Hypotension was resolved. 11/26/2018. Blood pressure today is 137/71. Stable. 11/27/2018- BP is 131/80 stable 11/28/2018 blood pressure slightly elevated today 148/67 going to closely monitor her blood pressure. I am going to put her on small dose of lisinopril because of the history of diabetes mellitus. 11/29/2018-blood pressure is 143/73. Better controlled. She was started on lisinopril 5 mg p.o. daily. (7) Pulmonary embolism Is this a current diagnosis for this admission?: Yes Summary: 11/23/2018 patient has history of pulmonary embolism. She is on warfarin at home. We could withhold warfarin at this time. She is going to be on Lovenox 40 mg/kg subcu every 12 hours patient able to tolerate the oral medications. 11/24/2018 patient has history of pulmonary embolism she is on warfarin at home which was on hold since the admission. INR came back as 11.4 today. We are going to give vitamin K 10 mg p.o. 1 dose. plan to recheck INR tomorrow. 11/25/2018 patient has history of pulmonary embolism on warfarin at home. Yesterday's INR is 11.4. I give a vitamin K 10 mg p.o. 1 dose. Today's INR is 4.48. I am going to continue to hold warfarin. Plan to recheck INR tomorrow. 11/26/2018 patient history of pulmonary embolism. At the time of admission INR is 11.4. She got 1 dose of 10 mg of vitamin K. Yesterday's INR is 4.48. INR today is 1.19. Going to restart the patient on warfarin 2 mg p.o. nightly.. 11/28/2018-INR is 1.07 today. Patient is on Coumadin 2 mg p.o. nightly. I increased the Coumadin levels dose to 3 mg p.o. nightly planning to check PT/INR tomorrow. 11/29/2018 INR is still 1.07 she is on Coumadin 3 mg p.o. nightly I am going to recheck INR tomorrow. 11/29/2018 time is 5:30 PM patient INR was subtherapeutic Coumadin was increased to 3 mg p.o. nightly yesterday explained to her we need to check the PT/INR at least another day to adjust the Coumadin doses but patient understood and verbalized the response she wants to take the risk and left the hospital. (8) Abdominal pain Is this a current diagnosis for this admission?: Yes - Additional Information Resuscitation Status: Full Code Home Medications: Carvedilol [Coreg 6.25 mg Tablet] 6.25 mg PO Q12 11/24/18 Mycophenolate Sodium [Mycophenolic Acid] 360 mg PO BID 11/24/18 Tacrolimus Anhydrous [Prograf 1 mg Capsule] 5 mg PO DAILY 11/24/18 Warfarin Sodium [Coumadin 2 mg Tablet] 2 mg PO QHS 11/24/18 Zolpidem Tartrate [Ambien] 10 mg PO QHS 11/24/18 History of Present Illness History of Present Illness: STAR REYNAGA is a 53 year old female with history of type 1 diabetes mellitus, kidney pancreas transplant in 1999, history of PE, hyperlipidemia, gastroparesis, anxiety, depression, htn, insomnia came to the emergency room with history of nausea vomiting and diarrhea for the last 2 days. Is unable to keep anything since yesterday. Vomiting clear liquids. The blood in the vomitus. Complains of loose stools. Denies any fever. Complains of body aches all over the body. Any headaches dizzy spells. Rashes. His any chest pains. No fever or chills. Denies any upper respiratory tract symptoms. Patient says she took her insulin yesterday did not took insulin this morning. She said she is complete her medications. Patient states her on Thursday after that she is not feeling well. Emergency room the VBG was done pH is 7.19 with the with potassium of 6.1. There was 439 in the ER. Was also started on IV fluids along with insulin drip. Consult was called for admission. Last admission for similar problem is in August last year. Went to see the patient patient is continued to have episodes of severe nausea associated with vomiting's. Physical Exam Vital Signs: Temp Pulse Resp BP Pulse Ox 98.5 F 76 18 145/66 H 94 11/29/18 12:41 11/29/18 12:41 11/29/18 12:41 11/29/18 12:41 11/29/18 12:41 Intake & Output 11/28/18 11/29/18 11/30/18 06:59 06:59 06:59 Intake Total 1027 631 100 Output Total 3000 1425 Balance -1973 -794 100 Weight 68.7 kg 64.9 kg General appearance: PRESENT: no acute distress Head exam: PRESENT: atraumatic Eye exam: PRESENT: PERRLA Mouth exam: PRESENT: moist Neck exam: ABSENT: carotid bruit, JVD, lymphadenopathy, thyromegaly Respiratory exam: PRESENT: clear to auscultation colleen. ABSENT: rales, rhonchi, wheezes Cardiovascular exam: PRESENT: RRR. ABSENT: diastolic murmur, rubs, systolic murmur GI/Abdominal exam: PRESENT: normal bowel sounds, soft. ABSENT: distended, guarding, mass, organolmegaly, rebound, tenderness Neurological exam: PRESENT: alert, awake, oriented to person, oriented to place, oriented to time, oriented to situation, CN II-XII grossly intact. ABSENT: motor sensory deficit Psychiatric exam: PRESENT: appropriate affect, normal mood. ABSENT: homicidal ideation, suicidal ideation Results Laboratory Results: 11/29/18 06:02 11/29/18 06:02 11/29/18 11/29/18 11/29/18 06:02 06:02 06:50 WBC 6.1 RBC 3.46 L Hgb 9.0 L Hct 27.4 L MCV 79 L MCH 26.1 L MCHC 33.0 RDW 16.5 H Plt Count 176 Sodium 137.8 Potassium 4.2 Chloride 104 Carbon Dioxide 26 Anion Gap 8 BUN 22 H Creatinine 1.27 H Est GFR ( Amer) 54 L Est GFR (Non-Af Amer) 44 L Glucose 194 H Calcium 8.3 L Magnesium 1.8 Total Bilirubin 0.5 AST 17 ALT 12 Alkaline Phosphatase 98 Total Protein 5.4 L Albumin 2.8 L Urine Color YELLOW Urine Appearance CLEAR Urine pH 7.0 Ur Specific [place] 1.009 Urine Protein 30 H Urine Glucose (UA) >=500 H Urine Ketones NEGATIVE Urine Blood SMALL H Urine Nitrite NEGATIVE Ur Leukocyte Esterase NEGATIVE Urine WBC (Auto) 3 Urine RBC (Auto) 34 Stool Occult Blood 11/29/18 09:10 WBC RBC Hgb Hct MCV MCH MCHC RDW Plt Count Sodium Potassium Chloride Carbon Dioxide Anion Gap BUN Creatinine Est GFR ( Amer) Est GFR (Non-Af Amer) Glucose Calcium Magnesium Total Bilirubin AST ALT Alkaline Phosphatase Total Protein Albumin Urine Color Urine Appearance Urine pH Ur Specific [place] Urine Protein Urine Glucose (UA) Urine Ketones Urine Blood Urine Nitrite Ur Leukocyte Esterase Urine WBC (Auto) Urine RBC (Auto) Stool Occult Blood POSITIVE 11/23/18 21:30 Blood Blood Culture - Final NO GROWTH IN 5 DAYS 11/23/18 20:25 Blood Blood Culture - Final NO GROWTH IN 5 DAYS 11/23/18 11/23/18 11/24/18 15:05 20:25 05:36 CK-MB (CK-2) 0.63 1.37 1.44 Troponin I < 0.012 < 0.012 < 0.012 Qualifiers - * PATIENT BEING DISCHARGED WITH ANY OF THE FOLLOWING DIAGNOSIS: No VTE patient discharged on overlapping Therapy?: Yes
== END 2018-11-29 13:50 | disposition left against medical advice (07) | DRG 638 ==
LOC: ER 14:43 → EH 16:01 → 3S 11-24 04:59
PROVIDERS: ADMIT Hospitalist; ATTEND Hospitalist
DX: E10.10 Type 1 diabetes mellitus with ketoacidosis without coma (principal); Z94.0 Kidney transplant status; T86.890 Other transplanted tissue rejection; N17.9 Acute kidney failure, unspecified; E87.1 Hypo-osmolality and hyponatremia; E87.5 Hyperkalemia; E10.43 Type 1 diabetes mellitus with diabetic autonomic (poly)neuropathy; K31.84 Gastroparesis; E10.21 Type 1 diabetes mellitus with diabetic nephropathy; I10 Essential (primary) hypertension; F43.21 Adjustment disorder with depressed mood; F41.8 Other specified anxiety disorders; F17.210 Nicotine dependence, cigarettes, uncomplicated; Z86.711 Personal history of pulmonary embolism; Z79.01 Long term (current) use of anticoagulants; Z79.4 Long term (current) use of insulin; Z79.52 Long term (current) use of systemic steroids; Z79.899 Other long term (current) drug therapy
CPT/HCPCS: 36415; 80048; 80053; 80061; 80197; 81001; 82150; 82272; 82553; 82803; 82962; 83036; 83605; 83690; 83735; 84443; 84484; 85025; 85027; 85610; 87040; 93005; 93010; 96361; 96374; 99285; J1170; J1335; J1815; J2270; J2405; J2550; J3475; J3490; J7030; J7507; S0119

== ENCOUNTER → 2019-12-23 | Outpatient (CLI) | payer SELFPAY ==
[2019-12-23 11:48] LABS: ABSOLUTE BASOPHILS # (AUTO) 0.1 10^3/uL (0.0-0.2); ABSOLUTE EOSINOPHILS # (AUTO) 0.1 10^3/uL (0.0-0.6); ABSOLUTE MONOCYTES (AUTO) 0.5 10^3/uL (0.1-1.4); ABSOLUTE NEUT (AUTO) 7.8 10^3/uL (1.7-8.2); BASOPHILS % (AUTO) 0.6 % (0-2); EOSINOPHILS % (AUTO) 1.1 % (0-6); HEMOGLOBIN 11.1 g/dL (12.0-15.5); LYMPHOCYTES % (AUTO) 19.3 % (13-45); MEAN CORPUSCULAR HEMOGLOBIN 25.5 pg (27.0-33.4); MEAN CORPUSCULAR HGB CONC 31.7 g/dL (32.0-36.0); MEAN CORPUSCULAR VOLUME 80 fl (80-97); MONOCYTES % (AUTO) 4.8 % (3-13); PLATELET COUNT 268 10^3/uL (150-450); RED BLOOD COUNT 4.37 10^6/uL (3.72-5.28); RED CELL DISTRIBUTION WIDTH 16.6 % (11.5-14.0); SEGMENTED NEUTROPHILS % (AUTO) 74.2 % (42-78); TOTAL CELLS COUNTED % (AUTO) 100 %; WHITE BLOOD COUNT 10.6 10^3/uL (4.0-10.5)
[2019-12-23 11:55] LABS: APPEARANCE,URINE SLIGHTLY-CLOUDY; BILIRUBIN,URINE NEGATIVE (NEGATIVE); COLOR,URINE YELLOW; GLUCOSE, URINE >=500 mg/dL (NEGATIVE); KETONES,URINE NEGATIVE (NEGATIVE); LEUKOCYTE ESTERASE,URINE TRACE (NEGATIVE); NITRITE,URINE NEGATIVE (NEGATIVE); PROTEIN,URINE 100 mg/dL (NEGATIVE); URINE SPECIFIC GRAVITY 1.014; UROBILINOGEN,URINE NEGATIVE mg/dL (<2.0)
[2019-12-23 12:21] LABS: ANION GAP 13 (5-19); BLOOD UREA NITROGEN 30 mg/dL (7-20); CALCIUM 9.6 mg/dL (8.4-10.2); CARBON DIOXIDE 22 mmol/L (22-30); CHLORIDE 103 mmol/L (98-107); GLUCOSE 125 mg/dL (75-110); PHOSPHORUS 5.9 mg/dL (2.5-4.5)
[2019-12-23 16:56] LABS: UR PRO/CREAT RATIO RESULT 1.4 mg/mg (0.0-0.2); URINE CREATININE 122.4 mg/dL (15-278); URINE PROTEIN 174.2 mg/dL (<12)
== END ==
LOC: OD 10:38
PROVIDERS: ATTEND Internal Medicine Nephrology
DX: D89.9 Disorder involving the immune mechanism, unspecified (principal); Z94.83 Pancreas transplant status; B25.9 Cytomegaloviral disease, unspecified; Z94.0 Kidney transplant status; E55.9 Vitamin D deficiency, unspecified; Z79.899 Other long term (current) drug therapy
CPT/HCPCS: 36415; 80048; 80197; 81001; 82570; 83735; 84100; 84156; 85025; 87086

== ENCOUNTER 2020-01-03 03:29 | Inpatient (IN) | payer SELFPAY ==
[2020-01-03] MEDS ORDERED: INSULIN REG, HUMAN 100 UNIT/ML 3 ML VIAL (PYX) SUBCUT ONE (04:38)
[2020-01-03] MEDS ORDERED: NORMAL SALINE 1000 ML 1,000 ML IV ONE ×2 (04:38→08:01)
--- NOTE | 2020-01-03 04:40 | ER Document Report ---
ED General - General Chief Complaint: General Weakness Stated Complaint: HIGH BGL,WEAKNESS Time Seen by Provider: 01/03/20 04:37 Primary Care Provider: PATRICIO FRAIRE MD [Primary Care Provider] - Follow up as needed Mode of Arrival: Medic Information source: Patient TRAVEL OUTSIDE OF THE [place] IN LAST 30 DAYS: No - HPI Onset: Other - over the last few days Onset/Duration: Gradual Quality of pain: Pressure Severity: Moderate Pain Level: 1 Associated symptoms: Nausea, Vomiting, Weakness Exacerbated by: Denies Relieved by: Denies Similar symptoms previously: No Recently seen / treated by doctor: Yes - patient recently saw a dentist and was prescribed Augmentin and Tylenol #3 Notes: 54 year old female with a history of Insulin Dependent DM, PE, HTN, GERD, Anxiety, Depression brought in by EMS for hyperglycemia and weakness. The patient says she was recently seen by a dentist and diagnosed with a dental infection (she is currently taking Augmentin). The patient denies missing doses of her normal medications. The patient denies high fevers, chills, sweats but she did have some nausea and vomiting (shit thinks this could be from Tylenol #3 which she was given by her Dentist). - Related Data Allergies/Adverse Reactions: metoclopramide HCl [From Reglan] Allergy (Verified 07/14/17 13:13) Past Medical History - General Information source: Patient - Social History Smoking Status: Current Some Day Smoker Frequency of alcohol use: None Drug Abuse: None Family History: DM Patient has suicidal ideation: No Patient has homicidal ideation: No - Past Medical History Cardiac Medical History: Reports: Hx Hypertension, Hx Pulmonary Embolism Endocrine Medical History: Reports: Hx Diabetes Mellitus Type 1, Hx Diabetes Mellitus Type 2 Renal/ Medical History: Denies: Hx Peritoneal Dialysis GI Medical History: Reports: Hx Gastroesophageal Reflux Disease Musculoskeletal Medical History: Reports Hx Musculoskeletal Deformity, Reports Hx Musculoskeletal Trauma Psychiatric Medical History: Reports: Hx Anxiety, Hx Depression Past Surgical History: Reports: Hx Appendectomy, Hx Bowel Surgery, Hx Cholecystectomy, Hx Hysterectomy, Hx Kidney (Renal Surgery) - transplant 1999, Hx Orthopedic Surgery - Right elbow surgery, Hx Pancreatic Surgery - transplant 1999, Hx Tonsillectomy, Hx Tubal Ligation, Other - Pancreatic-renal transplant done in 1999 - Immunizations Immunizations up to date: No Hx Diphtheria, Pertussis, Tetanus Vaccination: Yes Hx Pneumococcal Vaccination: 10/14/15 Review of Systems - Review of Systems Constitutional: Weakness, Other - hyperglycemia EENT: Dental problem - left lower molar dental decay and infection Cardiovascular: No symptoms reported Respiratory: No symptoms reported Gastrointestinal: Nausea, Vomiting Genitourinary: No symptoms reported Female Genitourinary: No symptoms reported Musculoskeletal: No symptoms reported Skin: No symptoms reported Hematologic/Lymphatic: No symptoms reported Neurological/Psychological: Weakness Physical Exam - Vital signs Vitals: Temp Pulse Resp BP Pulse Ox 97.5 F 94 18 141/58 H 100 01/03/20 03:43 01/03/20 03:43 01/03/20 03:43 01/03/20 03:43 01/03/20 03:43 - Notes Notes: GENERAL: Chronically ill appearing, well-nourished and in no acute distress. HEAD: Atraumatic, normocephalic. EYES: Pupils equal round and reactive to light, extraocular movements intact, sclera anicteric, conjunctiva are normal. ENT: Nares patent, oropharynx clear without exudates. Slightly dry mucous membranes. NECK: Normal range of motion, supple without lymphadenopathy or JVD. LUNGS: Breath sounds clear to auscultation bilaterally and equal. No wheezes rales or rhonchi. HEART: Regular rate and rhythm without murmurs, rubs or gallops. ABDOMEN: Soft, nontender, normoactive bowel sounds. No guarding, no rebound. No masses appreciated. EXTREMITIES: Normal range of motion, no pitting or edema. No clubbing or cyanos is. NEUROLOGICAL: Cranial nerves II through XII grossly intact. Normal speech, normal gait. PSYCH: Normal mood, normal affect. SKIN: Warm, Dry, normal turgor, no rashes or lesions noted. Course - Re-evaluation Re-evalutation: 01/03/20 07:58 The patient is in DKA and she has acute kidney injury. The patient was treated with fluids and an insulin infusion. The ICU attending was consulted and he feels the patient is safe for a step down bed. The patient was therefore admitted to a step down bed. - Vital Signs Vital signs: Temp Pulse Resp BP Pulse Ox 98.6 F 94 13 134/66 H 99 01/03/20 05:01 01/03/20 03:43 01/03/20 07:02 01/03/20 07:02 01/03/20 07:02 - Laboratory Result Diagrams: 01/03/20 05:37 01/03/20 05:37 Laboratory results interpreted by me: 01/03/20 01/03/20 01/03/20 05:37 05:37 05:37 WBC 13.1 H Hgb 9.9 L Hct 33.3 L MCH 25.2 L MCHC 29.8 L RDW 17.7 H Lymph % (Auto) 7.2 L Absolute Neuts (auto) 11.6 H Seg Neutrophils % 88.6 H VBG pH 7.17 L* VBG pCO2 32.5 L VBG HCO3 11.6 L Sodium 133.5 L Potassium 5.3 H Carbon Dioxide 8 L* Anion Gap 24 H BUN 57 H Creatinine 2.43 H Est GFR ( Amer) 25 L Est GFR (MDRD) Non-Af 21 L Glucose 567 H* POC Glucose Direct Bilirubin 0.5 H AST 12 L Albumin 3.4 L 01/03/20 07:05 WBC Hgb Hct MCH MCHC RDW Lymph % (Auto) Absolute Neuts (auto) Seg Neutrophils % VBG pH VBG pCO2 VBG HCO3 Sodium Potassium Carbon Dioxide Anion Gap BUN Creatinine Est GFR ( Amer) Est GFR (MDRD) Non-Af Glucose POC Glucose 388 H Direct Bilirubin AST Albumin - EKG Interpretation by Me EKG shows normal: Sinus rhythm, [place], Intervals, QRS Complexes Rate: Normal Additional EKG results interpreted by me: 01/03/20 08:00 T wave inversions in III Critical Care Note - Critical Care Note Total time excluding time spent on procedures (mins): 35 Discharge - Discharge Clinical Impression: Diabetic ketoacidosis Qualifiers: Diabetes mellitus type: due to underlying condition Diabetes mellitus complication detail: without coma Qualified Code(s): E08.10 - Diabetes mellitus due to underlying condition with ketoacidosis without coma Acute kidney failure Qualifiers: Acute renal failure type: unspecified Qualified Code(s): N17.9 - Acute kidney failure, unspecified Condition: Serious Disposition: ADMITTED INPATIENT Admitting Provider: Daisy (Hospitalist) Unit Admitted: [facility] Referrals: PATRICIO FRAIRE MD [Primary Care Provider] - Follow up as needed
[2020-01-03 05:57] LABS: ABSOLUTE LYMPHOCYTES (AUTO) 0.9 10^3/uL (0.5-4.7); EOSINOPHILS % (AUTO) 0.2 % (0-6); HEMOGLOBIN 9.9 g/dL (12.0-15.5); RED CELL DISTRIBUTION WIDTH 17.7 % (11.5-14.0); TOTAL CELLS COUNTED % (AUTO) 100 %; VENOUS BLOOD BASE EXCESS -15.8 mmol/L; VENOUS BLOOD HCO3 11.6 mmol/L (20-32); VENOUS BLOOD PCO2 32.5 mmHg (35-63)
[2020-01-03 06:00] LABS: VENOUS BLOOD PH 7.17 (7.30-7.42)
[2020-01-03 06:01] LABS: INTERNATIONAL RATION (INR) 1.14; PROTHROMBIN TIME 14.7 SEC (11.4-15.4)
[2020-01-03 06:11] LABS: ABSOLUTE MONOCYTES (AUTO) 0.5 10^3/uL (0.1-1.4); ABSOLUTE NEUT (AUTO) 11.6 10^3/uL (1.7-8.2); BASOPHILS % (AUTO) 0.3 % (0-2); HEMATOCRIT 33.3 % (36.0-47.0); LYMPHOCYTES % (AUTO) 7.2 % (13-45); MEAN CORPUSCULAR HEMOGLOBIN 25.2 pg (27.0-33.4); MEAN CORPUSCULAR HGB CONC 29.8 g/dL (32.0-36.0); MONOCYTES % (AUTO) 3.7 % (3-13); PLATELET COUNT 278 10^3/uL (150-450); RED BLOOD COUNT 3.92 10^6/uL (3.72-5.28); SEGMENTED NEUTROPHILS % (AUTO) 88.6 % (42-78); WHITE BLOOD COUNT 13.1 10^3/uL (4.0-10.5)
[2020-01-03 06:13] LABS: ALBUMIN 3.4 g/dL (3.5-5.0); ALKALINE PHOSPHATASE 122 U/L (38-126); ASPARTATE AMINO TRANSFERASE 12 U/L (14-36); BILIRUBIN,DIRECT 0.5 mg/dL (0.0-0.4); BILIRUBIN,TOTAL 0.5 mg/dL (0.2-1.3); BLOOD UREA NITROGEN 57 mg/dL (7-20); CALCIUM 8.4 mg/dL (8.4-10.2); CHLORIDE 102 mmol/L (98-107); POTASSIUM 5.3 mmol/L (3.6-5.0); TOTAL PROTEIN 6.4 g/dL (6.3-8.2)
[2020-01-03 06:15] LABS: MEAN CORPUSCULAR VOLUME 85 fl (80-97)
[2020-01-03 06:21] LABS: ANION GAP 24 (5-19)
[2020-01-03 06:22] LABS: CARBON DIOXIDE 8 mmol/L (22-30); GLUCOSE 567 mg/dL (75-110)
[2020-01-03] MEDS ORDERED: NORMAL SALINE 100 ML with INSULIN REGULAR, HUMAN 100 UNIT IV PRN ×2 (06:29)
[2020-01-03] MEDS ORDERED: INSULIN REG, HUMAN 100 UNIT/ML 3 ML VIAL (PYX) ONE (06:52)
--- NOTE | 2020-01-03 07:59 | Progress Note ---
Provider Note Provider Note: Asked to see this patient in DKA. She is 54 and has been in DKA before. This episode may have been triggered by a dental infection. She is on antibiotics but may benefit from IV antibiotics. Her vbg shows a pH of 7.17 and gap is not closed at 24. However she is awake, oriented and BG is down to 300's and I believe her gap will close soon. I think she can be cared for on the [facility] as she is already recieving IVF and an insulin drip. The ICU will do nothing different in her management. She is awake and is protecting her airway.
[2020-01-03] MEDS ORDERED: ACETAMINOPHEN 325 MG TABLET PO PRN (10:59)
[2020-01-03] MEDS ORDERED: DEXTROSE 5%-NORMAL SALINE 1,000 ML IV PRN (10:59)
[2020-01-03] MEDS ORDERED: MAG HYDROX/AL HYDROX/SIMETH SUSP 30 ML UDCUP PO PRN (10:59)
[2020-01-03] MEDS ORDERED: GLUCAGON,HUMAN RECOMB 1 MG INJ IM PRN (11:12)
[2020-01-03] MEDS ORDERED: DEXTROSE 40% GEL 15 GM TUBE PO PRN ×2 (11:12)
[2020-01-03] MEDS ORDERED: DEXTROSE 50%-WATER 25 GM/50 ML DISP.SYRIN IV PRN ×2 (11:12)
[2020-01-03] MEDS ORDERED: ZOLPIDEM TARTRATE 5 MG TABLET PO PRN (11:16)
[2020-01-03] MEDS ORDERED: NICOTINE 7 MG/24 HR PATCH.TD24 TD PRN (11:21)
--- NOTE | 2020-01-03 11:30 | PDOC H&P ---
History of Present Illness Admission Date/PCP: 01/03/20 08:35 PATRICIO FRAIRE MD Patient complains of: Patient's mother brought her to the emergency department. She remembers nausea, vomiting and feeling poorly but cannot provide further details. History of Present Illness: STAR REYNAGA is a 54 year old female with a history of kidney/pancreas transplant with subsequent failed pancreas. She has hypertension, gastroesophageal reflux disease, muscle spasms and chronic pain. She recently saw her dentist and has very poor dentition with multiple caries and rotted teeth. Her dentist currently is treating her for a left mandibular abscess. This is the most likely cause for this episode of diabetic ketoacidosis. The patient was placed on an insulin infusion. The hub cutter evaluated the patient and felt that the patient did not meet ICU criteria and so the patient was referred to the hospitalist service for admission. The patient was acidotic with a bicarb of 8 and an anion gap. She was also given IV fluids and referred to the hospitalist service for admission as above. 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 Renal/ Medical History: Reports: Chronic Kidney Disease GI Medical History: Reports: Gastroesophageal Reflux Disease Musculoskeltal Medical History: Reports: Arthritis Psychiatric Medical History: Reports: Depression Hematology: Reports: Anemia Infectious Medical History: Reports: None Past Surgical History Past Surgical History: Reports: Appendectomy, Cholecystectomy, Hysterectomy, Orthopedic Surgery - Right elbow surgery, Tonsillectomy, Tubal Ligation, Other - Pancreatic-renal transplant done in 1999 Social History Information Source: Patient, Parent, [facility] Records Lives with: Alone Smoking Status: Current Every Day Smoker - Approximately 3 to 4 cigarettes/day Electronic Cigarette use?: No Frequency of Alcohol Use: Rare Hx Recreational Drug Use: No Drugs: None Hx Prescription Drug Abuse: No - Advance Directive Resuscitation Status: Full Code Surrogate healthcare decision maker:: The patient's mother would be the dedicated decision maker as her and she has no children Family History Family History: DM Parental Family History Reviewed: Yes Children Family History Reviewed: NA Sibling(s) Family History Reviewed.: NA Medication/Allergy Home Medications: Amlodipine Besylate [Norvasc 5 mg Tablet] 5 mg PO Q12 01/03/20 Carvedilol [Coreg] 1 tab PO Q12 01/03/20 Mycophenolate Sodium [Mycophenolic Acid] 360 mg PO Q12 01/03/20 Tacrolimus Anhydrous [Prograf 1 Mg Capsule] 1 mg PO QPM 01/03/20 Tacrolimus Anhydrous [Prograf 1 Mg Capsule] 2 mg PO QAM 01/03/20 Zolpidem Tartrate [Ambien] 10 mg PO QHS 01/03/20 Allergies/Adverse Reactions: metoclopramide HCl [From Reglan] Allergy (Verified 07/14/17 13:13) Review of Systems Constitutional: PRESENT: anorexia, fatigue. ABSENT: fever(s) Eyes: ABSENT: visual disturbances Ears: ABSENT: hearing changes Nose, Mouth, and Throat: PRESENT: mouth pain, other - Swelling left cheek Cardiovascular: ABSENT: chest pain, edema, palpitations Respiratory: ABSENT: cough, dyspnea, hemoptysis, sputum Gastrointestinal: PRESENT: nausea, vomiting. ABSENT: coffee ground emesis, hematochezia, melena Genitourinary: ABSENT: difficulty urinating, dysuria Musculoskeletal: PRESENT: back pain. ABSENT: deformity Integumentary: ABSENT: diaphoresis, erythema, pruritus, rash Neurological: PRESENT: confusion Psychiatric: PRESENT: depression. ABSENT: anxiety Endocrine: ABSENT: cold intolerance, heat intolerance Hematologic/Lymphatic: ABSENT: easy bleeding, easy bruising, lymphadenopathy Physical Exam Vital Signs: Temp Pulse Resp BP Pulse Ox 98.6 F 94 20 142/51 H 98 01/03/20 05:01 01/03/20 03:43 01/03/20 09:01 01/03/20 09:01 01/03/20 09:01 Intake & Output 01/02/20 01/03/20 01/04/20 06:59 06:59 06:59 Intake Total 1000 760 Balance 1000 760 Weight 58.8 kg General appearance: PRESENT: cooperative, disheveled, other - Well-developed 54-year-old female who looks older than her stated age. She is in moderate distress with pain. Head exam: PRESENT: atraumatic, normocephalic Eye exam: PRESENT: conjunctiva pale, EOMI. ABSENT: conjunctival injection, scleral icterus Ear exam: PRESENT: normal external ear exam. ABSENT: bleeding, drainage Mouth exam: PRESENT: dry mucosa, tongue midline Teeth exam: PRESENT: poor dentation, other - Left facial swelling consistent with dental infection Neck exam: ABSENT: carotid bruit, JVD, lymphadenopathy, tenderness, tracheostomy Respiratory exam: PRESENT: clear to auscultation colleen, symmetrical, unlabored. ABSENT: accessory muscle use, rales, rhonchi, tachypnea, wheezes Cardiovascular exam: PRESENT: RRR, +S1, +S2, systolic murmur - 1/6 GI/Abdominal exam: PRESENT: normal bowel sounds, soft. ABSENT: distended, tenderness Rectal exam: PRESENT: deferred Gentrourinary exam: ABSENT: indwelling catheter Extremities exam: ABSENT: calf tenderness, joint swelling, pedal edema Musculoskeletal exam: PRESENT: normal inspection. ABSENT: deformity Neurological exam: PRESENT: alert, awake, oriented to person, oriented to place, oriented to situation, CN II-XII grossly intact Psychiatric exam: PRESENT: flat affect. ABSENT: agitated, anxious Focused psych exam: ABSENT: delusional, restlessness Skin exam: PRESENT: dry, normal color, warm. ABSENT: rash Results Laboratory Results: 01/03/20 05:37 01/03/20 05:37 01/03/20 01/03/20 01/03/20 05:37 05:37 05:37 WBC 13.1 H RBC 3.92 Hgb 9.9 L Hct 33.3 L MCV 85 D MCH 25.2 L MCHC 29.8 L RDW 17.7 H Plt Count 278 Seg Neutrophils % 88.6 H VBG pH 7.17 L* VBG pCO2 32.5 L VBG HCO3 11.6 L VBG Base Excess -15.8 Sodium 133.5 L Potassium 5.3 H Chloride 102 Carbon Dioxide 8 L* Anion Gap 24 H BUN 57 H Creatinine 2.43 H Est GFR ( Amer) 25 L Glucose 567 H* Lactic Acid Calcium 8.4 Total Bilirubin 0.5 AST 12 L Alkaline Phosphatase 122 Total Protein 6.4 Albumin 3.4 L 01/03/20 01/03/20 01/03/20 05:37 08:10 10:04 WBC RBC Hgb Hct MCV MCH MCHC RDW Plt Count Seg Neutrophils % VBG pH VBG pCO2 VBG HCO3 VBG Base Excess Sodium Potassium Chloride Carbon Dioxide Anion Gap BUN Creatinine Est GFR ( Amer) Glucose Lactic Acid 1.1 1.7 1.3 Calcium Total Bilirubin AST Alkaline Phosphatase Total Protein Albumin Assessment and Plan - Diagnosis (1) DKA (diabetic ketoacidoses) Qualifiers: Diabetes mellitus type: due to underlying condition Diabetes mellitus complication detail: without coma Qualified Code(s): E08.10 - Diabetes mellitus due to underlying condition with ketoacidosis without coma Is this a current diagnosis for this admission?: Yes Plan: The patient is on insulin infusion. We will gradually taper to off and start oral diet. Compliance is likely an issue however the severe dental infection is the most likely cause of this episode. Months off of the protocol the patient will start an oral diet. I will discuss with the patient if she takes pancreatic enzymes due to her failed pancreas. We will return her to Lantus and sliding scale coverage. (2) Nausea & vomiting Qualifiers: Vomiting type: unspecified Vomiting Intractability: non-intractable Qualified Code(s): R11.2 - Nausea with vomiting, unspecified Is this a current diagnosis for this admission?: Yes Plan: Secondary to diabetic ketoacidosis. IV fluids and supportive treatment. Antiemetics available if needed. (3) Hyperkalemia Is this a current diagnosis for this admission?: Yes Plan: Monitor potassium with the aggressive IV fluids. 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 Accu-Cheks before meals and at bedtime (5) Renal transplant recipient Is this a current diagnosis for this admission?: Yes Plan: Continue tacrolimus and mycophenolate. I did ask for tacrolimus and mycophenolate levels to rule out any toxicity. (6) Abdominal pain Qualifiers: Abdominal location: generalized Qualified Code(s): R10.84 - Generalized abdominal pain Is this a current diagnosis for this admission?: Yes Plan: Likely secondary to the nausea and vomiting. Pancreatitis is not a concern with her failed pancreas. Symptomatic treatment. (7) Hypertension Qualifiers: Hypertension type: essential hypertension Qualified Code(s): I10 - Essential (primary) hypertension Is this a current diagnosis for this admission?: Yes Plan: Continue amlodipine and Coreg and monitor vital signs (8) GERD (gastroesophageal reflux disease) Qualifiers: Esophagitis presence: without esophagitis Qualified Code(s): K21.9 - Gastro-esophageal reflux disease without esophagitis Is this a current diagnosis for this admission?: Yes Plan: Continue proton pump inhibitor therapy (9) Tobacco abuse Is this a current diagnosis for this admission?: Yes Plan: Encourage smoking cessation. Nicotine patch will be available if needed. (10) Dental abscess Is this a current diagnosis for this admission?: Yes Plan: The patient has severe caries. The left lower molars are rotted to the gumline. She has left facial swelling. Her dentist had her on amoxicillin. Being in the hospital I have ordered Unasyn adjusted for her creatinine clearance. We w ill transition her back to oral antibiotics when appropriate. - Plan Summary Summary: Patient with a dental abscess that likely triggered the episode of DKA. The patient may not have compensated appropriately with sliding scale coverage. She will receive IV fluids and antibiotics. 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 I will review that with the patient tomorrow. I will check tacrolimus and mycophenolate levels as well. - Time Time Spent with patient: 35 or more minutes Smoking Cessation Education: 3 to 10 minutes Medications reviewed and adjusted accordingly: Yes Anticipated discharge: Home with Homehealth - Inpatient Certification Based on my medical assessment, after consideration of the patient's comorbidities, presenting symptoms, or acuity I expect that the services needed warrant INPATIENT care.: Yes I certify that my determination is in accordance with my understanding of Medicare's requirements for reasonable and necessary INPATIENT services [42 CFR 412.3e].: Yes Medical Necessity: Need For IV Fluids, Need for IV Antibiotics, Risk of Complication if Not Cared For in Hospital, Other - Accu-Cheks and sliding scale coverage Post Hospital Care: D/C Financial Developer Documentation
[2020-01-03] MEDS ORDERED: ACETAMINOPHEN WITH CODEINE #3 TABLET PO PRN (12:08)
[2020-01-03] MEDS ORDERED: POLYETHYLENE GLYCOL 3350 POWDER 17 GM/1 PACKET PO PRN (12:09)
[2020-01-03 12:29] LABS: APPEARANCE,URINE SLIGHTLY-CLOUDY; BILIRUBIN,URINE NEGATIVE (NEGATIVE); COLOR,URINE YELLOW; GLUCOSE, URINE >=500 mg/dL (NEGATIVE); KETONES,URINE 20 mg/dL (NEGATIVE); PROTEIN,URINE 30 mg/dL (NEGATIVE); URINE SPECIFIC GRAVITY 1.017; UROBILINOGEN,URINE NEGATIVE mg/dL (<2.0)
[2020-01-03] MEDS: AMPICILLIN SODIUM/SULBACTAM NA 1.5 GM in NORMAL SALINE 50 ML IV SCH ×2 (14:05→22:00)
[2020-01-03] MEDS: HEPARIN SOD (PORCINE) 5,000 UNIT/ML 1 ML VIAL SUBCUT SCH ×2 (14:47→21:18)
[2020-01-03] MEDS ORDERED: INFLUENZA QUAD (6MOS+) 2019-20 VAC 0.5 ML SYR IM ONE (15:06)
[2020-01-03 15:08] LABS: ANION GAP 15 (5-19); BLOOD UREA NITROGEN 53 mg/dL (7-20); CALCIUM 8.8 mg/dL (8.4-10.2); CARBON DIOXIDE 14 mmol/L (22-30); CHLORIDE 110 mmol/L (98-107); GLUCOSE 83 mg/dL (75-110); POTASSIUM 4.4 mmol/L (3.6-5.0)
[2020-01-03] MEDS ORDERED: MORPHINE SULFATE 10 MG/ML INJ IV ONE (16:15)
--- NOTE | 2020-01-03 16:23 | EKG REPORT ---
SEVERITY:- ABNORMAL ECG - SINUS RHYTHM PROBABLE INFERIOR INFARCT, AGE INDETERMINATE : Confirmed by: Janell Hood MD 03-Jan-2020 16:22:21
[2020-01-03] MEDS: DOCUSATE SODIUM 100 MG CAPSULE PO SCH (17:32)
[2020-01-03] MEDS: TACROLIMUS ANHYDROUS 1 MG CAPSULE PO SCH (17:32)
[2020-01-03] MEDS: INSULIN LISPRO 100 UNIT/ML 3 ML VIAL SUBCUT SCH ×2 (17:55→21:59)
[2020-01-03] MEDS: HYDROMORPHONE HCL INJ/PF 2 MG/ML AMPULE IV PRN (21:03)
[2020-01-03] MEDS: AMLODIPINE BESYLATE 5 MG TABLET PO SCH (21:18)
[2020-01-03] MEDS: CARVEDILOL 6.25 MG TABLET PO SCH (21:18)
[2020-01-03] MEDS ORDERED: (PENDING PHARMACY ID) (Mycophenolate Sodium [Mycophenolic Acid] 360 MG) PO SCH (22:00)
[2020-01-03] MEDS: RINGERS SOLUTION,LACTATED 1,000 ML IV PRN (22:07)
[2020-01-03] MEDS: INSULIN GLARGINE,HUM.REC.ANLOG 1,000 UNIT/10 ML VIAL SUBCUT SCH (22:08)
[2020-01-03 23:26] LABS: ANION GAP 12 (5-19); BLOOD UREA NITROGEN 43 mg/dL (7-20); CALCIUM 8.9 mg/dL (8.4-10.2); CARBON DIOXIDE 19 mmol/L (22-30); CHLORIDE 107 mmol/L (98-107); GLUCOSE 118 mg/dL (75-110)
[2020-01-04] MEDS: HYDROMORPHONE HCL INJ/PF 2 MG/ML AMPULE IV PRN ×4 (03:54→18:17)
[2020-01-04] MEDS: PANTOPRAZOLE SODIUM 40 MG TABLET.DR PO SCH (05:34)
[2020-01-04] MEDS: HEPARIN SOD (PORCINE) 5,000 UNIT/ML 1 ML VIAL SUBCUT SCH ×3 (05:34→21:20)
[2020-01-04] MEDS: RINGERS SOLUTION,LACTATED 1,000 ML IV PRN ×2 (05:41→13:55)
[2020-01-04 06:04] LABS: ABSOLUTE BASOPHILS # (AUTO) 0.1 10^3/uL (0.0-0.2); ABSOLUTE EOSINOPHILS # (AUTO) 0.1 10^3/uL (0.0-0.6); ABSOLUTE LYMPHOCYTES (AUTO) 0.8 10^3/uL (0.5-4.7); ABSOLUTE MONOCYTES (AUTO) 0.6 10^3/uL (0.1-1.4); ABSOLUTE NEUT (AUTO) 7.1 10^3/uL (1.7-8.2); EOSINOPHILS % (AUTO) 0.6 % (0-6); HEMATOCRIT 32.9 % (36.0-47.0); HEMOGLOBIN 10.7 g/dL (12.0-15.5); LYMPHOCYTES % (AUTO) 9.6 % (13-45); MEAN CORPUSCULAR HEMOGLOBIN 25.8 pg (27.0-33.4); MEAN CORPUSCULAR HGB CONC 32.7 g/dL (32.0-36.0); PLATELET COUNT 237 10^3/uL (150-450); RED BLOOD COUNT 4.16 10^6/uL (3.72-5.28); RED CELL DISTRIBUTION WIDTH 16.8 % (11.5-14.0); SEGMENTED NEUTROPHILS % (AUTO) 81.8 % (42-78); TOTAL CELLS COUNTED % (AUTO) 100 %; WHITE BLOOD COUNT 8.6 10^3/uL (4.0-10.5)
[2020-01-04 06:07] LABS: ANION GAP 11 (5-19); BLOOD UREA NITROGEN 37 mg/dL (7-20); CALCIUM 9.1 mg/dL (8.4-10.2); CARBON DIOXIDE 19 mmol/L (22-30); CHLORIDE 111 mmol/L (98-107); MEAN CORPUSCULAR VOLUME 79 fl (80-97); POTASSIUM 3.5 mmol/L (3.6-5.0)
[2020-01-04 06:19] LABS: GLUCOSE < 20 mg/dL (75-110)
[2020-01-04] MEDS: INSULIN LISPRO 100 UNIT/ML 3 ML VIAL SUBCUT SCH ×2 (08:51→12:05)
[2020-01-04] MEDS: DOCUSATE SODIUM 100 MG CAPSULE PO SCH ×2 (09:01→18:08)
[2020-01-04] MEDS: CARVEDILOL 6.25 MG TABLET PO SCH ×2 (11:00→21:21)
[2020-01-04] MEDS: AMLODIPINE BESYLATE 5 MG TABLET PO SCH ×2 (11:00→21:21)
[2020-01-04] MEDS: AMPICILLIN SODIUM/SULBACTAM NA 1.5 GM in NORMAL SALINE 50 ML IV SCH ×2 (11:58→21:54)
[2020-01-04] MEDS: INSULIN GLARGINE,HUM.REC.ANLOG 1,000 UNIT/10 ML VIAL SUBCUT SCH (12:05)
[2020-01-04] MEDS: CHLORHEXIDINE GLUCONATE 0.12% ORAL RINSE 15 ML UDC MM SCH ×2 (12:07→18:14)
[2020-01-04] MEDS: TACROLIMUS ANHYDROUS 1 MG CAPSULE PO SCH ×2 (12:08→18:15)
[2020-01-04] MEDS: ONDANSETRON 4 MG TAB.RAPDIS PO PRN (14:11)
--- NOTE | 2020-01-04 15:34 | PDOC PROGRESS REPORT ---
Subjective Progress Note for:: 01/04/20 Subjective:: Patient is feeling slightly better than yesterday. Unfortunately she had a significant hypoglycemic episode and vomited the oral glucose. Her Accu-Cheks have been very labile. Reason For Visit: DIABETIC KETOACIDOSIS,HISTORY PANCREAS/KIDNEY Physical Exam Vital Signs: Temp Pulse Resp BP Pulse Ox 99.3 F 85 15 134/62 H 97 01/04/20 11:44 01/04/20 11:44 01/04/20 11:44 01/04/20 11:44 01/04/20 11:44 Intake & Output 01/03/20 01/04/20 01/05/20 06:59 06:59 06:59 Intake Total 1000 2915 1000 Output Total 0 240 Balance 1000 2915 760 Weight 58.8 kg 58.4 kg General appearance: PRESENT: cooperative, mild distress, well-developed Head exam: PRESENT: atraumatic, normocephalic Ear exam: PRESENT: normal external ear exam. ABSENT: bleeding, drainage Mouth exam: PRESENT: moist, tongue midline Respiratory exam: PRESENT: clear to auscultation colleen, symmetrical, unlabored. ABSENT: accessory muscle use, prolonged expiratory phas, rales, rhonchi, tachypnea, wheezes Cardiovascular exam: PRESENT: RRR, +S1, +S2 GI/Abdominal exam: PRESENT: normal bowel sounds, soft, tenderness - Mild diffuse. ABSENT: distended, guarding Rectal exam: PRESENT: deferred Neurological exam: PRESENT: alert, awake, oriented to person, oriented to place, oriented to time, oriented to situation, CN II-XII grossly intact Psychiatric exam: PRESENT: flat affect. ABSENT: agitated, anxious Results Laboratory Results: 01/04/20 05:01 01/04/20 05:01 01/03/20 01/04/20 01/04/20 22:48 05:01 05:01 WBC 8.6 RBC 4.16 Hgb 10.7 L Hct 32.9 L MCV 79 L D MCH 25.8 L MCHC 32.7 RDW 16.8 H Plt Count 237 Seg Neutrophils % 81.8 H Sodium 138.0 141.1 Potassium 4.0 3.5 L Chloride 107 111 H Carbon Dioxide 19 L 19 L Anion Gap 12 11 BUN 43 H 37 H Creatinine 1.67 H 1.42 H Est GFR ( Amer) 39 L 47 L Glucose 118 H < 20 L* Calcium 8.9 9.1 Magnesium 2.1 2.2 Assessment and Plan - Diagnosis (1) DKA (diabetic ketoacidoses) Qualifiers: Diabetes mellitus type: due to underlying condition Diabetes mellitus complication detail: without coma Qualified Code(s): E08.10 - Diabetes mellitus due to underlying condition with ketoacidosis without coma Is this a current diagnosis for this admission?: Yes Plan: The patient is off of the insulin infusion. We are still having trouble regulating her glucose. She had a marked hypoglycemic episode this morning. For that reason I have discontinued all of her Lantus. It is likely that aggressive treatment of her infection and forced compliance with a diabetic diet are making it such that her previous insulin dosing is excessive. I will reduce her regimen to a sliding scale only and monitor her Accu-Cheks. Will make changes accordingly. (2) Nausea & vomiting Qualifiers: Vomiting type: unspecified Vomiting Intractability: non-intractable Qualified Code(s): R11.2 - Nausea with vomiting, unspecified Is this a current diagnosis for this admission?: Yes Plan: Improved but she did have an episode of emesis this morning when the glucose gel was administered for her hypoglycemia. I expect this was an acute reaction and her overall nausea and vomiting has improved. (3) Hyperkalemia Is this a current diagnosis for this admission?: Yes Plan: Serum potassium is elevated on admission. With fluids and treatment she is now slightly hypokalemic. I will administer potassium supplement and continue to monitor. I will adjust treatment based on her serum potassium levels. 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 This is likely due to multiple factors and so we will continue the diabetic diet as well as stopping all long-term insulin and using only sliding scale at this time until we can assess her true needs. (6) Renal transplant recipient Is this a current diagnosis for this admission?: Yes Plan: Continue mycophenolate and tacrolimus. Levels are pending. (7) Abdominal pain Qualifiers: Abdominal location: generalized Qualified Code(s): R10.84 - Generalized abdominal pain Is this a current diagnosis for this admission?: Yes Plan: Significantly improved. Pain is minimal at this time. (8) Hypertension Qualifiers: Hypertension type: essential hypertension Qualified Code(s): I10 - Essential (primary) hypertension Is this a current diagnosis for this admission?: Yes Plan: Adequate control. Continue current regimen. (9) GERD (gastroesophageal reflux disease) Qualifiers: Esophagitis presence: without esophagitis Qualified Code(s): K21.9 - Gastro-esophageal reflux disease without esophagitis Is this a current diagnosis for this admission?: Yes Plan: Continue Protonix (10) Tobacco abuse Is this a current diagnosis for this admission?: Yes Plan: Nicotine patch is available (11) Dental abscess Is this a current diagnosis for this admission?: Yes Plan: Continue Unasyn for broad coverage of oral bernadette. Left cheek is still swollen and tender. (12) Hypoglycemia associated with diabetes Is this a current diagnosis for this admission?: Yes Plan: As noted above the patient had a significant hypoglycemic episode this morning. Significant changes in her insulin regimen as outlined above. - Plan Summary Summary: Patient with a dental abscess that likely triggered the episode of DKA. The patient may not have compensated appropriately with sliding scale coverage. She will receive IV fluids and antibiotics. 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 I will review that with the patient tomorrow. I will check tacrolimus and mycophenolate levels as well. - Time Time Spent with patient: 15-24 minutes Medications reviewed and adjusted accordingly: Yes Anticipated discharge: Home
[2020-01-04] MEDS: POTASSI CL 20 MEQ/50 ML RIDER 20 MEQ/50 ML RTUPB IV SCH ×2 (16:20→19:03)
[2020-01-04] MEDS: INSULIN REG, HUMAN 100 UNIT/ML 3 ML VIAL (PYX) SUBCUT SCH ×2 (17:20→21:30)
[2020-01-04] MEDS: MYCOPHENOLATE SODIUM 360 MG PO SCH (21:38)
[2020-01-05] MEDS: HYDROMORPHONE HCL INJ/PF 2 MG/ML AMPULE IV PRN ×5 (00:13→18:18)
[2020-01-05] MEDS: NORMAL SALINE 1000 ML 1,000 ML IV PRN ×2 (01:48→15:14)
[2020-01-05 05:15] LABS: ALBUMIN 2.5 g/dL (3.5-5.0); ALKALINE PHOSPHATASE 486 U/L (38-126); ANION GAP 6 (5-19); ASPARTATE AMINO TRANSFERASE 194 U/L (14-36); BILIRUBIN,TOTAL 0.3 mg/dL (0.2-1.3); BLOOD UREA NITROGEN 21 mg/dL (7-20); CALCIUM 7.9 mg/dL (8.4-10.2); CARBON DIOXIDE 18 mmol/L (22-30); CHLORIDE 112 mmol/L (98-107); GLUCOSE 134 mg/dL (75-110); TOTAL PROTEIN 4.9 g/dL (6.3-8.2)
[2020-01-05 05:23] LABS: ABSOLUTE EOSINOPHILS # (AUTO) 0.1 10^3/uL (0.0-0.6); ABSOLUTE LYMPHOCYTES (AUTO) 1.3 10^3/uL (0.5-4.7); ABSOLUTE MONOCYTES (AUTO) 0.5 10^3/uL (0.1-1.4); ABSOLUTE NEUT (AUTO) 4.4 10^3/uL (1.7-8.2); BASOPHILS % (AUTO) 0.7 % (0-2); EOSINOPHILS % (AUTO) 1.2 % (0-6); HEMATOCRIT 24.9 % (36.0-47.0); LYMPHOCYTES % (AUTO) 20.2 % (13-45); MEAN CORPUSCULAR HEMOGLOBIN 25.6 pg (27.0-33.4); MEAN CORPUSCULAR HGB CONC 32.4 g/dL (32.0-36.0); MEAN CORPUSCULAR VOLUME 79 fl (80-97); MONOCYTES % (AUTO) 7.3 % (3-13); PLATELET COUNT 176 10^3/uL (150-450); RED BLOOD COUNT 3.15 10^6/uL (3.72-5.28); RED CELL DISTRIBUTION WIDTH 16.6 % (11.5-14.0); SEGMENTED NEUTROPHILS % (AUTO) 70.6 % (42-78); TOTAL CELLS COUNTED % (AUTO) 100 %; WHITE BLOOD COUNT 6.2 10^3/uL (4.0-10.5)
[2020-01-05 05:26] LABS: HEMOGLOBIN 8.1 g/dL (12.0-15.5)
[2020-01-05 05:30] LABS: POTASSIUM 4.8 mmol/L (3.6-5.0)
[2020-01-05] MEDS: HEPARIN SOD (PORCINE) 5,000 UNIT/ML 1 ML VIAL SUBCUT SCH ×3 (06:04→21:30)
[2020-01-05] MEDS: PANTOPRAZOLE SODIUM 40 MG TABLET.DR PO SCH (06:04)
[2020-01-05] MEDS: TACROLIMUS ANHYDROUS 1 MG CAPSULE PO SCH ×2 (08:50→21:28)
[2020-01-05] MEDS: INSULIN REG, HUMAN 100 UNIT/ML 3 ML VIAL (PYX) SUBCUT SCH ×4 (09:20→21:37)
[2020-01-05] MEDS: AMPICILLIN SODIUM/SULBACTAM NA 1.5 GM in NORMAL SALINE 50 ML IV SCH (10:11)
[2020-01-05] MEDS: CARVEDILOL 6.25 MG TABLET PO SCH ×2 (10:12→21:29)
[2020-01-05] MEDS: AMLODIPINE BESYLATE 5 MG TABLET PO SCH ×2 (10:12→21:29)
[2020-01-05] MEDS: CHLORHEXIDINE GLUCONATE 0.12% ORAL RINSE 15 ML UDC MM SCH ×2 (10:12→18:27)
[2020-01-05] MEDS: MYCOPHENOLATE SODIUM 360 MG PO SCH ×2 (10:13→21:30)
[2020-01-05] MEDS: DOCUSATE SODIUM 100 MG CAPSULE PO SCH ×2 (10:14→18:28)
[2020-01-05] MEDS ORDERED: LIDOCAINE 2% VISCOUS SOLN 15 ML UDCUP PO PRN (18:10)
[2020-01-05] MEDS ORDERED: KETOROLAC TROMETHAMINE INJ/PF 30 MG/1 ML SDV IV PRN (18:14)
--- NOTE | 2020-01-05 18:20 | PDOC PROGRESS REPORT ---
Subjective Progress Note for:: 01/05/20 Subjective:: The patient was joking with the FUEL[employer] SALES REPRESENTATIVE 30 minutes ago. Upon entering the room she is more gross and complaining of severe pain. She does have a food tray in front of her and she states that trying to eat is very painful and this could account for the change. Reason For Visit: DIABETIC KETOACIDOSIS,HISTORY PANCREAS/KIDNEY Physical Exam Vital Signs: Temp Pulse Resp BP Pulse Ox 97.9 F 79 16 122/55 L 93 01/05/20 15:08 01/05/20 15:08 01/05/20 15:08 01/05/20 15:08 01/05/20 15:08 Intake & Output 01/04/20 01/05/20 01/06/20 06:59 06:59 06:59 Intake Total 2915 2685 1050 Output Total 0 390 Balance 2915 2295 1050 Weight 58.4 kg 60.2 kg General appearance: PRESENT: cooperative, mild distress - Mild to moderate distress, well-developed Head exam: PRESENT: atraumatic, normocephalic Eye exam: PRESENT: other - She is wearing an eye patch over the left eye Ear exam: PRESENT: normal external ear exam. ABSENT: bleeding, drainage Mouth exam: PRESENT: moist, tongue midline Teeth exam: PRESENT: poor dentation, other - Still with significant swelling over the left mandible area Respiratory exam: PRESENT: clear to auscultation colleen, symmetrical, unlabored. ABSENT: accessory muscle use, chest wall tenderness, rales, rhonchi, tachypnea, wheezes Cardiovascular exam: PRESENT: RRR, +S1, +S2 GI/Abdominal exam: PRESENT: diminished bowel sounds, soft, tenderness - Mid to left side. ABSENT: guarding Rectal exam: PRESENT: deferred Neurological exam: PRESENT: alert, awake, oriented to person, oriented to place, oriented to time, oriented to situation Psychiatric exam: PRESENT: flat affect. ABSENT: agitated, anxious Results Laboratory Results: 01/05/20 04:18 01/05/20 04:18 01/05/20 01/05/20 04:18 04:18 WBC 6.2 RBC 3.15 L Hgb 8.1 L D Hct 24.9 L MCV 79 L MCH 25.6 L MCHC 32.4 RDW 16.6 H Plt Count 176 Seg Neutrophils % 70.6 Sodium 135.6 L Potassium 4.8 D Chloride 112 H Carbon Dioxide 18 L Anion Gap 6 BUN 21 H Creatinine 1.13 Est GFR ( Amer) > 60 Glucose 134 H Calcium 7.9 L Magnesium 1.8 Total Bilirubin 0.3 AST 194 H Alkaline Phosphatase 486 H Total Protein 4.9 L Albumin 2.5 L 01/03/20 12:01 Clean Catch Midstream Urine Culture - Final 2,000 col/ml Assessment and Plan - Diagnosis (1) DKA (diabetic ketoacidoses) Qualifiers: Diabetes mellitus type: due to underlying condition Diabetes mellitus complication detail: without coma Qualified Code(s): E08.10 - Diabetes mellitus due to underlying condition with ketoacidosis without coma Is this a current diagnosis for this admission?: Yes Plan: With aggressive fluids and treatment of the dental abscess the diabetic ketoacidosis has resolved. With her diabetic diet her Accu-Cheks have been acceptable for the most part. Her appetite is been down because of the dental abscess. When the dental abscess is resolved and her appetite improved she may need very low-dose Lantus. We will stop the IV fluids at this point. (2) Nausea & vomiting Qualifiers: Vomiting type: unspecified Vomiting Intractability: non-intractable Qualified Code(s): R11.2 - Nausea with vomiting, unspecified Is this a current diagnosis for this admission?: Yes Plan: Resolved at this point. Continue supportive care (3) Hyperkalemia Is this a current diagnosis for this admission?: Yes Plan: On admission the patient was hyperkalemic. She did receive IV fluids and then became hypokalemic. After that she received supplements and is now normokalemic. We will continue to monitor. As her diet improves, and with stable renal function, she should be able to maintain normal potassium levels. (4) Hypokalemia Is this a current diagnosis for this admission?: Yes Plan: As above (5) Acute renal failure Qualifiers: Acute renal failure type: unspecified Qualified Code(s): N17.9 - Acute kidney failure, unspecified Is this a current diagnosis for this admission?: Yes Plan: On admission the patient's GFR was 21. With her renal transplant I believe her baseline function is stage III. She is back with a GFR of 51. I am going to discontinue the IV fluids and monitor her progress. We will try and encourage p.o. fluids. With the renal function significantly improved, I have increased her Unasyn dosing. 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 The diabetic diet is helping. Unfortunate the patient's appetite is quite poor because it is painful to eat with a dental abscess. We will continue sliding scale for now. When her appetite improves she may likely need low-dose Lantus. (7) Renal transplant recipient Is this a current diagnosis for this admission?: Yes Plan: Continue tacrolimus and mycophenolate. Levels are still pending. (8) Abdominal pain Qualifiers: Abdominal location: generalized Qualified Code(s): R10.84 - Generalized abdominal pain Is this a current diagnosis for this admission?: Yes Plan: She is still having some abdominal discomfort. (9) Hypertension Qualifiers: Hypertension type: essential hypertension Qualified Code(s): I10 - Essential (primary) hypertension Is this a current diagnosis for this admission?: Yes Plan: Good blood pressure control on this current regimen. No changes at this time. (10) GERD (gastroesophageal reflux disease) Qualifiers: Esophagitis presence: without esophagitis Qualified Code(s): K21.9 - Gastro-esophageal reflux disease without esophagitis Is this a current diagnosis for this admission?: Yes Plan: Currently on Protonix. We will continue same. (11) Tobacco abuse Is this a current diagnosis for this admission?: Yes Plan: Nicotine patch is available (12) Dental abscess Is this a current diagnosis for this admission?: Yes Plan: The patient is on intravenous Unasyn. Her renal function has improved dramatically. Because of this, and with limited improvement, I am going to increase her dose to 3 g every 6 hours. In addition, she still has significant pain when trying to eat. I have changed her diet to pured. I have ordered viscous lidocaine for her to swish and expectorate. I have also ordered mandible films to try and better assess the swelling in her face. (13) Hypoglycemia associated with diabetes Is this a current diagnosis for this admission?: Yes Plan: No further hypoglycemic episodes now that we have eliminated all treatment except the sliding scale. (14) Physical debility Is this a current diagnosis for this admission?: Yes Plan: The patient still remains very weak. I believe her physical debility is related to her chronic illness ease with acute episode. I have asked physical therapy to see the patient. I have also ordered for her to be out of bed for meals. - Plan Summary Summary: Patient with a dental abscess that likely triggered the episode of DKA. The patient may not have compensated appropriately with sliding scale coverage. She will receive IV fluids and antibiotics. 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 I will review that with the patient tomorrow. I will check tacrolimus and mycophenolate levels as well. 01/05/2020 The diabetic ketoacidosis has resolved. The patient requires only sliding scale insulin coverage. This is in part due to her diabetic diet but also her very poor appetite. I have asked that she get protein supplements and I have changed her diet to pure. I have added Toradol and viscous lidocaine and switched her intravenous Dilaudid to oral dosing. The abdominal discomfort is still present. Her urine culture was unremarkable. We will recheck a comprehensive metabolic panel tomorrow. I have also asked physical therapy to assess patient. - Time Time Spent with patient: 15-24 minutes Medications reviewed and adjusted accordingly: Yes
[2020-01-05] MEDS ORDERED: ZOLPIDEM TARTRATE 5 MG TABLET PO PRN (18:45)
[2020-01-05] MEDS: ONDANSETRON 4 MG TAB.RAPDIS PO PRN (21:38)
[2020-01-06] MEDS: AMPICILLIN SODIUM/SULBACTAM NA 3 GM in NORMAL SALINE 100 ML IV SCH ×5 (03:18→23:51)
[2020-01-06] MEDS: NORMAL SALINE 1000 ML 1,000 ML IV PRN ×2 (03:28→21:49)
[2020-01-06] MEDS: HYDROMORPHONE HCL 2 MG TABLET PO PRN ×5 (03:29→23:50)
[2020-01-06] MEDS: TACROLIMUS ANHYDROUS 1 MG CAPSULE PO SCH ×3 (04:42→20:03)
[2020-01-06 05:46] LABS: ALBUMIN 2.9 g/dL (3.5-5.0); ALKALINE PHOSPHATASE 422 U/L (38-126); ANION GAP 10 (5-19); ASPARTATE AMINO TRANSFERASE 50 U/L (14-36); BILIRUBIN,DIRECT 0.4 mg/dL (0.0-0.4); BILIRUBIN,TOTAL 0.4 mg/dL (0.2-1.3); BLOOD UREA NITROGEN 18 mg/dL (7-20); CARBON DIOXIDE 18 mmol/L (22-30); CHLORIDE 108 mmol/L (98-107); GLUCOSE 237 mg/dL (75-110); POTASSIUM 4.6 mmol/L (3.6-5.0)
[2020-01-06] MEDS: HEPARIN SOD (PORCINE) 5,000 UNIT/ML 1 ML VIAL SUBCUT SCH ×3 (05:52→21:42)
[2020-01-06] MEDS: PANTOPRAZOLE SODIUM 40 MG TABLET.DR PO SCH (05:55)
[2020-01-06] MEDS: INSULIN REG, HUMAN 100 UNIT/ML 3 ML VIAL (PYX) SUBCUT SCH (08:28)
[2020-01-06] MEDS ORDERED: DEXTROSE 40% GEL 15 GM TUBE PO PRN ×2 (08:40)
[2020-01-06] MEDS ORDERED: GLUCAGON,HUMAN RECOMB 1 MG INJ IM PRN (08:40)
[2020-01-06] MEDS ORDERED: DEXTROSE 50%-WATER 25 GM/50 ML DISP.SYRIN IV PRN ×2 (08:40)
[2020-01-06] MEDS ORDERED: INSULIN GLARGINE,HUM.REC.ANLOG 1,000 UNIT/10 ML VIAL SUBCUT SCH (10:00)
--- NOTE | 2020-01-06 10:17 | RADIOLOGY REPORT (SQ) ---
EXAM DESCRIPTION: MANDIBLE 4 VIEWS OR MORE COMPLETED DATE/TIME: 01/06/2020 10:02 am REASON FOR STUDY: left mandibular swelling. Probable abscess COMPARISON: None. NUMBER OF VIEWS: Four view. TECHNIQUE: Images of the mandible acquired. AP, Alonso's, angled right, angled left mandible images. LIMITATIONS: None. FINDINGS: MANDIBLE: No acute fracture. No disruption of the right or left temporomandibular joints. ORBITS: No fracture. No foreign body. SINUSES: No mucosal thickening. No air fluid levels. FACIAL BONES: No fracture. OTHER: Soft tissue swelling along the left face/ cheek. No radiopaque foreign body. IMPRESSION: No acute fracture. No sinus air-fluid levels. Soft tissue swelling along the left face/cheek. TECHNICAL DOCUMENTATION: JOB ID: [id number] [employer]- All Rights Reserved Reading location - IP/workstation name: [email or web address]
[2020-01-06] MEDS: CHLORHEXIDINE GLUCONATE 0.12% ORAL RINSE 15 ML UDC MM SCH ×2 (10:58→18:39)
[2020-01-06] MEDS: AMLODIPINE BESYLATE 5 MG TABLET PO SCH ×2 (10:58→21:47)
[2020-01-06] MEDS: CARVEDILOL 6.25 MG TABLET PO SCH ×2 (10:59→21:46)
[2020-01-06] MEDS: DOCUSATE SODIUM 100 MG CAPSULE PO SCH ×3 (11:00→18:31)
[2020-01-06] MEDS: INSULIN LISPRO 100 UNIT/ML 3 ML VIAL SUBCUT SCH ×3 (12:48→21:43)
[2020-01-06] MEDS: MYCOPHENOLATE SODIUM 360 MG PO SCH ×2 (12:49→21:41)
[2020-01-06 14:16] LABS: TACROLIMUS (FK506) 3.8 ng/mL (2.0-20.0)
--- NOTE | 2020-01-06 14:37 | PDOC PROGRESS REPORT ---
Subjective Progress Note for:: 01/06/20 Subjective:: STAR REYNAGA is a 54 year old female with a history of kidney/pancreas transplant with subsequent failed pancreas. She has hypertension, gastroesophageal reflux disease, muscle spasms and chronic pain. She recently saw her dentist and has very poor dentition with multiple caries and rotted teeth. Her dentist currently is treating her for a left mandibular abscess. This is the most likely cause for this episode of diabetic ketoacidosis. The patient was placed on an insulin infusion. The credit risk manager evaluated the patient and felt that the patient did not meet ICU criteria and so the patient was referred to the hospitalist service for admission. The patient was acidotic with a bicarb of 8 and an anion gap. She was also given IV fluids and referred to the hospitalist service for admission as above. 01/06/2020. No acute events overnight. Patient still complaining of left mandible pain and unable to eat much, denies any fever, chills, nausea, vom iting, diarrhea, constipation or any urinary symptoms. Does report mild improvement of her toothache compared to admission. Reason For Visit: DIABETIC KETOACIDOSIS,HISTORY PANCREAS/KIDNEY Physical Exam Vital Signs: Temp Pulse Resp BP Pulse Ox 97.8 F 81 18 138/59 H 96 01/06/20 11:43 01/06/20 11:43 01/06/20 11:43 01/06/20 11:43 01/06/20 11:43 Intake & Output 01/05/20 01/06/20 01/07/20 06:59 06:59 06:59 Intake Total 2685 3482 540 Output Total 390 1300 600 Balance 2295 2182 -60 Weight 60.2 kg 61.2 kg General appearance: PRESENT: no acute distress, well-developed, well-nourished Head exam: PRESENT: atraumatic, normocephalic Mouth exam: PRESENT: other - Right mandibular swelling, diffusely tender, no erythema, no discharge. Respiratory exam: PRESENT: clear to auscultation colleen. ABSENT: rales, rhonchi, wheezes GI/Abdominal exam: PRESENT: normal bowel sounds, soft. ABSENT: distended, guarding, mass, organolmegaly, rebound, tenderness Neurological exam: PRESENT: alert, awake, oriented to person, oriented to place, oriented to time, oriented to situation, CN II-XII grossly intact. ABSENT: motor sensory deficit Skin exam: PRESENT: dry, intact, warm. ABSENT: cyanosis, rash Results Laboratory Results: 01/05/20 04:18 01/06/20 04:57 01/06/20 04:57 Sodium 136.2 L Potassium 4.6 Chloride 108 H Carbon Dioxide 18 L Anion Gap 10 BUN 18 Creatinine 1.19 Est GFR ( Amer) 58 L Glucose 237 H Calcium 8.0 L Total Bilirubin 0.4 AST 50 H Alkaline Phosphatase 422 H Total Protein 6.0 L Albumin 2.9 L 01/03/20 12:01 Clean Catch Midstream Urine Culture - Final 2,000 col/ml Impressions: Mandible X-Ray 01/06/20 06:00 IMPRESSION: No acute fracture. No sinus air-fluid levels. Soft tissue swelling along the left face/cheek. Assessment and Plan - Diagnosis (1) Dental abscess Is this a current diagnosis for this admission?: Yes Plan: Left mandibular abscess. Mild improvement. Able to tolerate pured food. Unfortunately no oral facial surgeon available for consultation at [facility]. Patient managed by dentist as outpatient. Left mandibular x-ray negative for any osteomyelitis. Day 4 IV antibiotics. Day 4 IV Unasyn. Continue oral care. Continue IV antibiotics. Outpatient PCP and dentist follow-up. 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 Not optimized. Hemoglobin A1c 9.2. Diabetic diet. Basal, sliding and correctional insulin. Hypoglycemia protocol. Accu-Chek. Adjust dosage as needed. Outpatient PCP follow-up. (3) Acute kidney injury superimposed on CKD Is this a current diagnosis for this admission?: Yes Plan: Resolved. Creatinine back to baseline. Baseline creatinine 1-2. Prerenal most likely due to intravascular volume depletion due to DKA. Monitor volume status and electrolytes, replace as needed. Avoid nephrotoxic meds. Outpatient PCP and nephrology follow-up. (4) GERD (gastroesophageal reflux disease) Qualifiers: Esophagitis presence: without esophagitis Qualified Code(s): K21.9 - Gastro-esophageal reflux disease without esophagitis Is this a current diagnosis for this admission?: Yes Plan: Currently on Protonix. Outpatient PCP and gastroenterology follow-up. (5) Hyperkalemia Is this a current diagnosis for this admission?: Yes Plan: Resolved. Daily BMP. (6) Nausea & vomiting Qualifiers: Vomiting type: unspecified Vomiting Intractability: non-intractable Qualified Code(s): R11.2 - Nausea with vomiting, unspecified Is this a current diagnosis for this admission?: Yes Plan: Resolved. P.o. tolerant. (7) Physical debility Is this a current diagnosis for this admission?: Yes Plan: Due to underlying multiple comorbidities. Improving. Continue PT OT. (8) Renal transplant recipient Is this a current diagnosis for this admission?: Yes Plan: Continue tacrolimus and mycophenolate. Tacrolimus and mycophenolate level t herapeutic. (9) Tobacco abuse Is this a current diagnosis for this admission?: Yes Plan: Counseled on quitting. Nicotine patch is available (10) DKA (diabetic ketoacidoses) Qualifiers: Diabetes mellitus type: due to underlying condition Diabetes mellitus complication detail: without coma Qualified Code(s): E08.10 - Diabetes mellit us due to underlying condition with ketoacidosis without coma Is this a current diagnosis for this admission?: Yes Plan: Resolved. Anion gap WNL. This was likely induced due to underlying infection.
[2020-01-07] MEDS: AMPICILLIN SODIUM/SULBACTAM NA 3 GM in NORMAL SALINE 100 ML IV SCH ×3 (05:54→17:23)
[2020-01-07 05:55] LABS: HEMATOCRIT 24.7 % (36.0-47.0); MEAN CORPUSCULAR HEMOGLOBIN 25.2 pg (27.0-33.4); MEAN CORPUSCULAR HGB CONC 32.1 g/dL (32.0-36.0); MEAN CORPUSCULAR VOLUME 78 fl (80-97); RED BLOOD COUNT 3.15 10^6/uL (3.72-5.28); WHITE BLOOD COUNT 6.3 10^3/uL (4.0-10.5)
[2020-01-07] MEDS: HYDROMORPHONE HCL 2 MG TABLET PO PRN ×4 (05:55→21:34)
[2020-01-07] MEDS: PANTOPRAZOLE SODIUM 40 MG TABLET.DR PO SCH (05:55)
[2020-01-07] MEDS: HEPARIN SOD (PORCINE) 5,000 UNIT/ML 1 ML VIAL SUBCUT SCH ×3 (05:55→21:35)
[2020-01-07 06:19] LABS: ANION GAP 7 (5-19); BLOOD UREA NITROGEN 19 mg/dL (7-20); CARBON DIOXIDE 22 mmol/L (22-30); CHLORIDE 110 mmol/L (98-107); GLUCOSE 208 mg/dL (75-110); POTASSIUM 4.5 mmol/L (3.6-5.0)
[2020-01-07 06:40] LABS: HEMOGLOBIN 7.9 g/dL (12.0-15.5)
[2020-01-07 07:08] LABS: PLATELET COUNT 205 10^3/uL (150-450)
[2020-01-07] MEDS: NORMAL SALINE 1000 ML 1,000 ML IV PRN (07:36)
[2020-01-07] MEDS: INSULIN LISPRO 100 UNIT/ML 3 ML VIAL SUBCUT SCH ×4 (07:57→22:23)
[2020-01-07] MEDS: TACROLIMUS ANHYDROUS 1 MG CAPSULE PO SCH ×2 (07:58→17:23)
[2020-01-07] MEDS ORDERED: INSULIN GLARGINE,HUM.REC.ANLOG 1,000 UNIT/10 ML VIAL SUBCUT SCH (10:00)
--- NOTE | 2020-01-07 10:37 | PDOC PROGRESS REPORT ---
Subjective Progress Note for:: 01/07/20 Subjective:: STAR REYNAGA is a 54 year old female with a history of kidney/pancreas transplant with subsequent failed pancreas. She has hypertension, gastroesophageal reflux disease, muscle spasms and chronic pain. She recently saw her dentist and has very poor dentition with multiple caries and rotted teeth. Her dentist currently is treating her for a left mandibular abscess. This is the most likely cause for this episode of diabetic ketoacidosis. The patient was placed on an insulin infusion. The typing pool supervisor evaluated the patient and felt that the patient did not meet ICU criteria and so the patient was referred to the hospitalist service for admission. The patient was acidotic with a bicarb of 8 and an anion gap. She was also given IV fluids and referred to the hospitalist service for admission as above. 01/06/2020. No acute events overnight. Patient still complaining of left mandible pain and unable to eat much, denies any fever, chills, nausea, vom iting, diarrhea, constipation or any urinary symptoms. Does report mild improvement of her toothache compared to admission. 01/07/2020. No acute events overnight. Patient still complaining of persistent left jaw pain however improving compared to yesterday, able to tolerate some food, cannot open her mouth wide, eyes any fever, chills, nausea, vomiting, diarrhea, constipation or any urinary symptoms. Reason For Visit: DIABETIC KETOACIDOSIS,HISTORY PANCREAS/KIDNEY Physical Exam Vital Signs: Temp Pulse Resp BP Pulse Ox 98.4 F 79 20 132/59 H 94 01/07/20 07:48 01/07/20 07:48 01/07/20 07:48 01/07/20 07:48 01/07/20 07:48 Intake & Output 01/06/20 01/07/20 01/08/20 06:59 06:59 06:59 Intake Total 3482 3040 281 Output Total 1300 1750 Balance 2182 1290 281 Weight 61.2 kg 63 kg General appearance: PRESENT: no acute distress, well-developed, well-nourished Head exam: PRESENT: atraumatic, normocephalic Mouth exam: PRESENT: moist, tongue midline, other - Left mandibular swelling and tenderness, no erythema, no discharge. Respiratory exam: PRESENT: clear to auscultation colleen. ABSENT: rales, rhonchi, wheezes Cardiovascular exam: PRESENT: RRR. ABSENT: diastolic murmur, rubs, systolic murmur Neurological exam: PRESENT: alert, awake, oriented to person, oriented to place, oriented to time, oriented to situation, CN II-XII grossly intact. ABSENT: motor sensory deficit Results Laboratory Results: 01/07/20 04:42 01/07/20 04:42 01/07/20 01/07/20 04:42 04:42 WBC 6.3 RBC 3.15 L Hgb 7.9 L Hct 24.7 L MCV 78 L MCH 25.2 L MCHC 32.1 RDW 17.0 H Plt Count 205 Sodium 138.9 Potassium 4.5 Chloride 110 H Carbon Dioxide 22 Anion Gap 7 BUN 19 Creatinine 1.14 Est GFR ( Amer) > 60 Glucose 208 H Calcium 8.0 L Impressions: Mandible X-Ray 01/06/20 06:00 IMPRESSION: No acute fracture. No sinus air-fluid levels. Soft tissue swelling along the left face/cheek. Assessment and Plan - Diagnosis (1) Dental abscess Is this a current diagnosis for this admission?: Yes Plan: Left mandibular abscess. Mild improvement. Able to tolerate pured food. Unfortunately no oral facial surgeon available for consultation at [facility]. Patient managed by dentist as outpatient. Patient aware that only IV antibiotics may not resolve the abscess. She is stating that her mother will take her to see dentist as soon as she is discharged from the hospital. Left mandibular x-ray negative for any osteomyelitis. Day 5 IV antibiotics. Day 5 IV Unasyn. Continue oral care. Continue IV antibiotics. Outpatient PCP and dentist follow-up. 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 Not optimized. Hemoglobin A1c 9.2. Diabetic diet. Basal, sliding and correctional insulin. Hypoglycemia protocol. Accu-Chek. Adjust dosage as needed. Outpatient PCP follow-up. (3) Acute kidney injury superimposed on CKD Is this a current diagnosis for this admission?: Yes Plan: Resolved. Creatinine back to baseline. Baseline creatinine 1-2. Prerenal most likely due to intravascular volume depletion due to DKA. Monitor volume status and electrolytes, replace as needed. Avoid nephrotoxic meds. Outpatient PCP and nephrology follow-up. (4) GERD (gastroesophageal reflux disease) Qualifiers: Esophagitis presence: without esophagitis Qualified Code(s): K21.9 - Gastro-esophageal reflux disease without esophagitis Is this a current diagnosis for this admission?: Yes Plan: Currently on Protonix. Outpatient PCP and gastroenterology follow-up. (5) Hyperkalemia Is this a current diagnosis for this admission?: Yes Plan: Resolved. Daily BMP. (6) Nausea & vomiting Qualifiers: Vomiting type: unspecified Vomiting Intractability: non-intractable Qualified Code(s): R11.2 - Nausea with vomiting, unspecified Is this a current diagnosis for this admission?: Yes Plan: Resolved. P.o. tolerant. (7) Physical debility Is this a current diagnosis for this admission?: Yes Plan: Due to underlying multiple comorbidities. Improving. Continue PT OT. (8) Renal transplant recipient Is this a current diagnosis for this admission?: Yes Plan: Continue tacrolimus and mycophenolate. Tacrolimus and mycophenolate level therapeutic. (9) Tobacco abuse Is this a current diagnosis for this admission?: Yes Plan: Counseled on quitting. Nicotine patch is available (10) DKA (diabetic ketoacidoses) Qualifiers: Diabetes mellitus type: due to underlying condition Diabetes mellitus complication detail: without coma Qualified Code(s): E08.10 - Diabetes mellitus due to underlying condition with ketoacidosis without coma Is this a current diagnosis for this admission?: Yes Plan: Resolved. Anion gap WNL. This was likely induced due to underlying infection.
[2020-01-07] MEDS: MYCOPHENOLATE SODIUM 360 MG PO SCH ×2 (10:51→21:33)
[2020-01-07] MEDS: CARVEDILOL 6.25 MG TABLET PO SCH ×2 (10:51→21:34)
[2020-01-07] MEDS: DOCUSATE SODIUM 100 MG CAPSULE PO SCH ×2 (10:51→17:23)
[2020-01-07] MEDS: AMLODIPINE BESYLATE 5 MG TABLET PO SCH ×2 (10:51→21:35)
[2020-01-07] MEDS: CHLORHEXIDINE GLUCONATE 0.12% ORAL RINSE 15 ML UDC MM SCH ×2 (10:51→17:23)
[2020-01-08] MEDS: AMPICILLIN SODIUM/SULBACTAM NA 3 GM in NORMAL SALINE 100 ML IV SCH ×4 (00:44→17:14)
[2020-01-08] MEDS: HYDROMORPHONE HCL 2 MG TABLET PO PRN ×3 (04:11→21:00)
[2020-01-08] MEDS: PANTOPRAZOLE SODIUM 40 MG TABLET.DR PO SCH (05:32)
[2020-01-08] MEDS: HEPARIN SOD (PORCINE) 5,000 UNIT/ML 1 ML VIAL SUBCUT SCH ×3 (05:32→21:00)
[2020-01-08 07:02] LABS: ABSOLUTE EOSINOPHILS # (AUTO) 0.2 10^3/uL (0.0-0.6); ABSOLUTE LYMPHOCYTES (AUTO) 1.6 10^3/uL (0.5-4.7); ABSOLUTE MONOCYTES (AUTO) 0.4 10^3/uL (0.1-1.4); ABSOLUTE NEUT (AUTO) 3.5 10^3/uL (1.7-8.2); ABSOLUTE RETICS # 0.054 10^6/uL (0.028-0.122); BASOPHILS % (AUTO) 0.8 % (0-2); HEMATOCRIT 25.4 % (36.0-47.0); HEMOGLOBIN 8.2 g/dL (12.0-15.5); LYMPHOCYTES % (AUTO) 28.2 % (13-45); MEAN CORPUSCULAR HEMOGLOBIN 25.2 pg (27.0-33.4); MEAN CORPUSCULAR HGB CONC 32.1 g/dL (32.0-36.0); MEAN CORPUSCULAR VOLUME 79 fl (80-97); MONOCYTES % (AUTO) 7.6 % (3-13); PLATELET COUNT 240 10^3/uL (150-450); RED BLOOD COUNT 3.24 10^6/uL (3.72-5.28); RED CELL DISTRIBUTION WIDTH 16.6 % (11.5-14.0); RETICULOCYTE COUNT (AUTO) 1.66 % (0.66-2.85); SEGMENTED NEUTROPHILS % (AUTO) 60.4 % (42-78); TOTAL CELLS COUNTED % (AUTO) 100 %; WHITE BLOOD COUNT 5.7 10^3/uL (4.0-10.5)
[2020-01-08 07:21] LABS: ANION GAP 5 (5-19); BLOOD UREA NITROGEN 21 mg/dL (7-20); CALCIUM 8.2 mg/dL (8.4-10.2); CARBON DIOXIDE 22 mmol/L (22-30); CHLORIDE 113 mmol/L (98-107); IRON(TIBC) 21.3 ug/dL (37-170); POTASSIUM 4.3 mmol/L (3.6-5.0)
[2020-01-08] MEDS: INSULIN LISPRO 100 UNIT/ML 3 ML VIAL SUBCUT SCH ×4 (08:24→23:41)
[2020-01-08 08:25] LABS: FOLATE 8.42 ng/mL (>2.76)
[2020-01-08 08:32] LABS: GLUCOSE 48 mg/dL (75-110)
[2020-01-08] MEDS: DOCUSATE SODIUM 100 MG CAPSULE PO SCH ×2 (09:02→17:07)
[2020-01-08] MEDS: CARVEDILOL 6.25 MG TABLET PO SCH ×2 (09:02→21:01)
[2020-01-08] MEDS: CHLORHEXIDINE GLUCONATE 0.12% ORAL RINSE 15 ML UDC MM SCH ×2 (09:02→17:13)
[2020-01-08] MEDS: AMLODIPINE BESYLATE 5 MG TABLET PO SCH ×2 (09:02→21:01)
[2020-01-08] MEDS: MYCOPHENOLATE SODIUM 360 MG PO SCH ×2 (09:02→20:59)
[2020-01-08] MEDS: TACROLIMUS ANHYDROUS 1 MG CAPSULE PO SCH ×2 (09:02→17:14)
--- NOTE | 2020-01-08 13:05 | PDOC PROGRESS REPORT ---
Subjective Progress Note for:: 01/08/20 Subjective:: STAR REYNAGA is a 54 year old female with a history of kidney/pancreas transplant with subsequent failed pancreas. She has hypertension, gastroesophageal reflux disease, muscle spasms and chronic pain. She recently saw her dentist and has very poor dentition with multiple caries and rotted teeth. Her dentist currently is treating her for a left mandibular abscess. This is the most likely cause for this episode of diabetic ketoacidosis. The patient was placed on an insulin infusion. The sewing machine operator zipper evaluated the patient and felt that the patient did not meet ICU criteria and so the patient was referred to the hospitalist service for admission. The patient was acidotic with a bicarb of 8 and an anion gap. She was also given IV fluids and referred to the hospitalist service for admission as above. 01/06/2020. No acute events overnight. Patient still complaining of left mandible pain and unable to eat much, denies any fever, chills, nausea, vom iting, diarrhea, constipation or any urinary symptoms. Does report mild improvement of her toothache compared to admission. 01/07/2020. No acute events overnight. Patient still complaining of persistent left jaw pain however improving compared to yesterday, able to tolerate some food, cannot open her mouth wide, eyes any fever, chills, nausea, vomiting, diarrhea, constipation or any urinary symptoms. 01/08/2020. No acute events overnight. Noted to be hypoglycemic this morning, was a started on hypoglycemic protocol, no significant changes of her right mandibular abscess, still not able to eat much due to pain, denies any fever, chills, nausea, vomiting, diarrhea, constipation or any urinary symptoms. Reason For Visit: DIABETIC KETOACIDOSIS,HISTORY PANCREAS/KIDNEY Physical Exam Vital Signs: Temp Pulse Resp BP Pulse Ox 98.2 F 80 19 126/57 H 90 L 01/08/20 11:31 01/08/20 11:31 01/08/20 11:31 01/08/20 11:31 01/08/20 11:31 Intake & Output 01/07/20 01/08/20 01/09/20 06:59 06:59 06:59 Intake Total 3040 1311 Output Total 1750 400 Balance 1290 911 Weight 63 kg 62.7 kg General appearance: PRESENT: no acute distress, well-developed, well-nourished Head exam: PRESENT: atraumatic, normocephalic Mouth exam: PRESENT: tongue midline Teeth exam: PRESENT: dental caries, poor dentation, other - Left mandibular extensive dental caries. Left mandibular swelling, tenderness, no erythema or discharge. Unable to open mouth fully for full mouth examination. Pulses: PRESENT: normal dorsalis pedis pul GI/Abdominal exam: PRESENT: normal bowel sounds, soft. ABSENT: distended, guarding, mass, organolmegaly, rebound, tenderness Extremities exam: PRESENT: full ROM. ABSENT: calf tenderness, clubbing, pedal edema Neurological exam: PRESENT: alert, awake, oriented to person, oriented to place, oriented to time, oriented to situation, CN II-XII grossly intact. ABSENT: motor sensory deficit Results Laboratory Results: 01/08/20 06:44 01/08/20 06:44 01/07/20 01/08/20 01/08/20 21:20 06:44 06:44 WBC 5.7 RBC 3.24 L Hgb 8.2 L Hct 25.4 L MCV 79 L MCH 25.2 L MCHC 32.1 RDW 16.6 H Plt Count 240 Seg Neutrophils % 60.4 Retic Count (auto) 1.66 Sodium 139.5 Potassium 4.3 Chloride 113 H Carbon Dioxide 22 Anion Gap 5 BUN 21 H Creatinine 1.14 Est GFR ( Amer) > 60 Glucose 48 L Calcium 8.2 L Iron 21.3 L TIBC 253 % Saturation 8 Ferritin 25.20 Vitamin B12 930.0 Folate 8.42 Stool Occult Blood NEGATIVE 01/03/20 08:10 Blood Blood Culture - Final NO GROWTH IN 5 DAYS 01/03/20 05:37 Blood Blood Culture - Final NO GROWTH IN 5 DAYS Impressions: Mandible X-Ray 01/06/20 06:00 IMPRESSION: No acute fracture. No sinus air-fluid levels. Soft tissue swelling along the left face/cheek. Assessment and Plan - Diagnosis (1) Dental abscess Is this a current diagnosis for this admission?: Yes Plan: Left mandibular abscess. Able to tolerate pured food. Still complaining of left mandibular persistent pain, not able to open mouth fully. Left mandibular swelling improving, no erythema or discharge. Unable to do a full mouth examination given the fact the patient cannot open her mouth. On limited examination patient has extensive dental caries on the left mandibular region. Unfortunately no oral facial surgeon available for consultation at [facility]. Patient managed by dentist as outpatient. Patient aware that only IV antibiotics may not resolve the abscess. She is stating that her mother will take her to see dentist as soon as she is discharged from the hospital. Left mandibular x-ray negative for any osteomyelitis. We will add clindamycin IV. Day 5 IV antibiotics. Day 5 IV Unasyn. Day 1 IV clindamycin. Started 01/08/2020. Continue oral care. Continue IV antibiotics. Outpatient PCP and dentist follow-up. (2) Hypoglycemia associated with diabetes Is this a current diagnosis for this admission?: Yes Plan: This is likely due to low p.o. intake given her left dental abscess. On hypoglycemia protocol. Will adjust insulin dosage. Continue Accu-Chek, hypoglycemia protocol, encourage frequent feeding. 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 Not optimized. Hemoglobin A1c 9.2. Diabetic diet. Basal, sliding and correctional insulin. Hypoglycemia protocol. Accu-Chek. Adjust dosage as needed. Outpatient PCP follow-up. (4) Acute kidney injury superimposed on CKD Is this a current diagnosis for this admission?: Yes Plan: Resolved. Creatinine back to baseline. Baseline creatinine 1-2. Prerenal most likely due to intravascular volume depletion due to DKA. Monitor volume status and electrolytes, replace as needed. Avoid nephrotoxic meds. Outpatient PCP and nephrology follow-up. (5) GERD (gastroesophageal reflux disease) Qualifiers: Esophagitis presence: without esophagitis Qualified Code(s): K21.9 - Gastro-esophageal reflux disease without esophagitis Is this a current diagnosis for this admission?: Yes Plan: Currently on Protonix. Outpatient PCP and gastroenterology follow-up. (6) Hyperkalemia Is this a current diagnosis for this admission?: Yes Plan: Resolved. Daily BMP. (7) Nausea & vomiting Qualifiers: Vomiting type: unspecified Vomiting Intractability: non-intractable Qualified Code(s): R11.2 - Nausea with vomiting, unspecified Is this a current diagnosis for this admission?: Yes Plan: Resolved. P.o. tolerant. (8) Physical debility Is this a current diagnosis for this admission?: Yes Plan: Due to underlying multiple comorbidities. Improving. Continue PT OT. (9) Renal transplant recipient Is this a current diagnosis for this admission?: Yes Plan: Continue tacrolimus and mycophenolate. Tacrolimus and mycophenolate level therapeutic. (10) Tobacco abuse Is this a current diagnosis for this admission?: Yes Plan: Counseled on quitting. Nicotine patch is available (11) DKA (diabetic ketoacidoses) Qualifiers: Diabetes mellitus type: due to underlying condition Diabetes mellitus complication detail: without coma Qualified Code(s): E08.10 - Diabetes mellitus due to underlying condition with ketoacidosis without coma Is this a current diagnosis for this admission?: Yes Plan: Resolved. Anion gap WNL. This was likely induced due to underlying infection.
[2020-01-08] MEDS: CLINDAMYCIN 600 MG/D5W RTU 600 MG/50 ML RTUPB IV SCH ×2 (14:51→21:01)
[2020-01-08] MEDS ORDERED: INSULIN GLARGINE,HUM.REC.ANLOG 1,000 UNIT/10 ML VIAL SUBCUT SCH ×2 (22:00)
[2020-01-09] MEDS: AMPICILLIN SODIUM/SULBACTAM NA 3 GM in NORMAL SALINE 100 ML IV SCH ×4 (00:19→18:38)
[2020-01-09] MEDS: HYDROMORPHONE HCL 2 MG TABLET PO PRN ×4 (05:16→22:22)
[2020-01-09] MEDS: PANTOPRAZOLE SODIUM 40 MG TABLET.DR PO SCH (05:17)
[2020-01-09] MEDS: CLINDAMYCIN 600 MG/D5W RTU 600 MG/50 ML RTUPB IV SCH ×3 (05:19→21:17)
[2020-01-09] MEDS: HEPARIN SOD (PORCINE) 5,000 UNIT/ML 1 ML VIAL SUBCUT SCH ×3 (05:19→21:18)
[2020-01-09] MEDS: TACROLIMUS ANHYDROUS 1 MG CAPSULE PO SCH ×2 (08:08→18:37)
[2020-01-09] MEDS: INSULIN LISPRO 100 UNIT/ML 3 ML VIAL SUBCUT SCH ×4 (08:09→21:30)
[2020-01-09 08:28] LABS: HEMATOCRIT 25.1 % (36.0-47.0); HEMOGLOBIN 8.1 g/dL (12.0-15.5); MEAN CORPUSCULAR HEMOGLOBIN 25.7 pg (27.0-33.4); MEAN CORPUSCULAR HGB CONC 32.3 g/dL (32.0-36.0); MEAN CORPUSCULAR VOLUME 80 fl (80-97); PLATELET COUNT 246 10^3/uL (150-450); RED BLOOD COUNT 3.15 10^6/uL (3.72-5.28); RED CELL DISTRIBUTION WIDTH 16.8 % (11.5-14.0)
[2020-01-09 08:45] LABS: ANION GAP 7 (5-19); BLOOD UREA NITROGEN 21 mg/dL (7-20); CALCIUM 8.1 mg/dL (8.4-10.2); CARBON DIOXIDE 22 mmol/L (22-30); CHLORIDE 110 mmol/L (98-107); GLUCOSE 155 mg/dL (75-110); POTASSIUM 4.9 mmol/L (3.6-5.0)
[2020-01-09] MEDS: CARVEDILOL 6.25 MG TABLET PO SCH ×2 (11:07→21:18)
[2020-01-09] MEDS: AMLODIPINE BESYLATE 5 MG TABLET PO SCH ×2 (11:08→21:19)
[2020-01-09] MEDS: MYCOPHENOLATE SODIUM 360 MG PO SCH ×2 (11:08→21:21)
[2020-01-09] MEDS: DOCUSATE SODIUM 100 MG CAPSULE PO SCH ×2 (11:08→18:10)
[2020-01-09] MEDS: CHLORHEXIDINE GLUCONATE 0.12% ORAL RINSE 15 ML UDC MM SCH ×2 (11:08→18:38)
[2020-01-09] MEDS ORDERED: HYDROMORPHONE HCL INJ/PF 2 MG/ML AMPULE IV PRN (11:08)
[2020-01-09] MEDS ORDERED: ACETAMINOPHEN 325 MG TABLET PO PRN (11:10)
[2020-01-09] MEDS: LACTOBACILLUS ACIDOPHILUS 250 MG TAB PO SCH (14:07)
--- NOTE | 2020-01-09 15:47 | PDOC PROGRESS REPORT ---
Subjective Progress Note for:: 01/09/20 Subjective:: Patient still having pain in her left cheek. Patient states that she would make an appointment to see the dentist right upon discharge. Denies any fever or difficulty swallowing. States she takes Lantus 20 units nightly at home. Reason For Visit: DIABETIC KETOACIDOSIS,HISTORY PANCREAS/KIDNEY Physical Exam Vital Signs: Temp Pulse Resp BP Pulse Ox 98.6 F 76 14 123/56 L 93 01/09/20 11:33 01/09/20 11:33 01/09/20 11:33 01/09/20 11:33 01/09/20 11:33 Intake & Output 01/08/20 01/09/20 01/10/20 06:59 06:59 06:59 Intake Total 1311 1370 580 Output Total 400 0 Balance 911 1370 580 Weight 62.7 kg 62.5 kg General appearance: PRESENT: no acute distress, cooperative Mouth exam: PRESENT: other - Tenderness and swelling over left cheek Teeth exam: PRESENT: poor dentation Neck exam: ABSENT: JVD Respiratory exam: PRESENT: clear to auscultation colleen, unlabored. ABSENT: tachypnea, wheezes Cardiovascular exam: PRESENT: RRR, +S1, +S2. ABSENT: tachycardia GI/Abdominal exam: PRESENT: soft. ABSENT: rebound, rigid, tenderness Results Laboratory Results: 01/09/20 07:30 01/09/20 07:30 01/07/20 01/09/20 01/09/20 12:17 07:30 07:30 WBC 6.0 RBC 3.15 L Hgb 8.1 L Hct 25.1 L MCV 80 MCH 25.7 L MCHC 32.3 RDW 16.8 H Plt Count 246 Sodium 138.7 Potassium 4.9 Chloride 110 H Carbon Dioxide 22 Anion Gap 7 BUN 21 H Creatinine 1.26 H Est GFR ( Amer) 54 L Glucose 155 H Calcium 8.1 L Erythropoietin 132.8 H 01/07/20 21:20 Stool - Stool - Final 01/07/20 21:20 Stool - Stool Stool Culture - Final NO SALMONELLA, SHIGELLA, CAMPYLOBACTER, OR E.COLI 0157 RECOVERED. NEGATIVE FOR SHIGA TOXINS 1&2. Impressions: Mandible X-Ray 01/06/20 06:00 IMPRESSION: No acute fracture. No sinus air-fluid levels. Soft tissue swelling along the left face/cheek. Assessment and Plan - Diagnosis (1) Dental abscess Is this a current diagnosis for this admission?: Yes Plan: Still having significant tenderness and swelling over the left mandible Has been on antibiotics for about 5 days with clindamycin added yesterday to Unasyn. Continue oral care and antibiotics Will get a CT maxillofacial to evaluate for possible abscess. (2) Acute kidney injury superimposed on CKD Is this a current diagnosis for this admission?: Yes Plan: Resolved. Creatinine back to baseline. Baseline creatinine 1-2. Prerenal most likely due to intravascular volume depletion due to DKA. Monitor volume status and electrolytes, replace as needed. Avoid nephrotoxic meds. Outpatient PCP and nephrology follow-up. 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 Patient reports taking Lantus 20 units nightly as well as sliding scale at home. Currently on Lantus 10 units because of prior episode of hypoglycemia. I will increase to 16 units tonight given elevated blood sugars yesterday. Continue sliding scale coverage. (4) Renal transplant recipient Is this a current diagnosis for this admission?: Yes Plan: Continue tacrolimus and mycophenolate. Tacrolimus and mycophenolate level therapeutic. (5) Tobacco abuse Is this a current diagnosis for this admission?: Yes Plan: Counseled on quitting. Nicotine patch is available (6) Physical debility Is this a current diagnosis for this admission?: Yes Plan: Due to underlying multiple comorbidities. Improving. Continue PT OT. - Time Time Spent with patient: 15-24 minutes
--- NOTE | 2020-01-09 17:11 | RADIOLOGY REPORT (SQ) ---
EXAM DESCRIPTION: CT FACIAL AREA WITH COMPLETED DATE/TIME: 01/09/2020 4:49 pm REASON FOR STUDY: suspected left mandibular abscess COMPARISON: 10/30/2009 TECHNIQUE: Post contrast images through the facial bones and orbits windowed for bone and soft tissu e. Additional coronal and sagittal reconstructed images reviewed. All images stored on PACS. All CT scanners at this facility use dose modulation, iterative reconstruction, and/or weight based d osing when appropriate to reduce radiation dose to as low as reasonably achievable (ALARA). [facility]: Dose Right [facility]: CareDose [facility]: Dose Right [facility]: Teradose 4D [facility]: [employer] Mobile CONTRAST TYPE AND DOSE: contrast/concentration: Isovue 350.00 mg/ml; Total Contrast Delivered: 50.0 ml; Total Saline Delivered: 50.0 ml RENAL FUNCTION: BUN 21 creatinine 1.26 RADIATION DOSE: CT Rad equipment meets quality standard of care and radiation dose reduction techniq ues were employed. CTDIvol: 30.4 mGy. DLP: 578 mGy-cm. . LIMITATIONS: None. FINDINGS: FACIAL BONES: No fracture or bone lesion. ORBITS: Intact. No fracture. Symmetric intact globes and retroorbital soft tissues. PARANASAL SINUSES: Prior left maxillary antrectomy. No fluid levels. SOFT TISSUES: Stable lipoma left cheek. No abscess. INFERIOR BRAIN: Limited view. No acute findings. OTHER: No other significant finding. IMPRESSION: No abscess. TECHNICAL DOCUMENTATION: JOB ID: [id number] Quality ID # [id number]: Final reports with documentation of one or more dose reduction techniques (e.g., Au tomated exposure control, adjustment of the mA and/or kV according to patient size, use of iterative reconstruction technique) 2010 [employer]- All Rights Reserved Reading location - IP/workstation name: [email or web address]
[2020-01-09] MEDS ORDERED: INSULIN GLARGINE,HUM.REC.ANLOG 1,000 UNIT/10 ML VIAL SUBCUT SCH (22:00)
[2020-01-10] MEDS: AMPICILLIN SODIUM/SULBACTAM NA 3 GM in NORMAL SALINE 100 ML IV SCH ×2 (00:19→06:48)
[2020-01-10] MEDS: HYDROMORPHONE HCL 2 MG TABLET PO PRN (04:03)
[2020-01-10] MEDS: HEPARIN SOD (PORCINE) 5,000 UNIT/ML 1 ML VIAL SUBCUT SCH (06:00)
[2020-01-10] MEDS: CLINDAMYCIN 600 MG/D5W RTU 600 MG/50 ML RTUPB IV SCH (06:00)
[2020-01-10] MEDS: PANTOPRAZOLE SODIUM 40 MG TABLET.DR PO SCH (06:01)
[2020-01-10] MEDS: INSULIN LISPRO 100 UNIT/ML 3 ML VIAL SUBCUT SCH (07:33)
[2020-01-10] MEDS: TACROLIMUS ANHYDROUS 1 MG CAPSULE PO SCH (07:33)
[2020-01-10] MEDS: DOCUSATE SODIUM 100 MG CAPSULE PO SCH (09:48)
[2020-01-10] MEDS: AMLODIPINE BESYLATE 5 MG TABLET PO SCH (09:52)
[2020-01-10] MEDS: MYCOPHENOLATE SODIUM 360 MG PO SCH (09:53)
[2020-01-10] MEDS: LACTOBACILLUS ACIDOPHILUS 250 MG TAB PO SCH (09:53)
[2020-01-10] MEDS: CARVEDILOL 6.25 MG TABLET PO SCH (09:53)
[2020-01-10] MEDS: CHLORHEXIDINE GLUCONATE 0.12% ORAL RINSE 15 ML UDC MM SCH (09:53)
[2020-01-10 11:40] VITALS: BP 106/47
--- NOTE | 2020-01-10 13:11 | PDOC DISCHARGE SUMMARY ---
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 Is this a current diagnosis for this admission?: Yes (4) Renal transplant recipient Is this a current diagnosis for this admission?: Yes (5) Tobacco abuse Is this a current diagnosis for this admission?: Yes (6) Physical debility Is this a current diagnosis for this admission?: Yes (7) DKA (diabetic ketoacidoses) Is this a current diagnosis for this admission?: Yes - Additional Information Resuscitation Status: Full Code Discharge Diet: Diabetic Discharge Activity: Activity As Tolerated Referrals: [facility] [Provider Group] - 01/16/20 9:00 am Prescriptions: Metronidazole [Flagyl 500 mg Tablet] 500 mg PO TID #24 tablet Levofloxacin [Levaquin 750 mg Tablet] 750 mg PO DAILY #8 tab Chlorhexidine Gluconate [Periogard 0.12% Oral Rinse 15 ml] 15 ml MM BID 10 Days udc Tramadol HCl [Ultram] 50 mg PO Q8HP PRN #9 tablet PRN Reason: Lidocaine HCl [Xylocaine 2% Viscous Soln 15 ml Udcup] 15 ml PO Q6HP PRN #10 udc PRN Reason: Home Medications: Amlodipine Besylate [Norvasc 5 mg Tablet] 5 mg PO Q12 01/03/20 Carvedilol [Coreg] 1 tab PO Q12 01/03/20 Mycophenolate Sodium [Mycophenolic Acid] 360 mg PO Q12 01/03/20 Tacrolimus Anhydrous [Prograf 1 mg Capsule] 1 mg PO QPM 01/03/20 Tacrolimus Anhydrous [Prograf 1 mg Capsule] 2 mg PO QAM 01/03/20 Zolpidem Tartrate [Ambien] 10 mg PO QHS 01/03/20 Acetaminophen [Tylenol 325 mg Tablet] 650 mg PO Q4HP PRN tablet 01/10/20 Chlorhexidine Gluconate [Periogard 0.12% Oral Rinse 15 ml] 15 ml MM BID 10 Days udc 01/10/20 Insulin Glargine,Hum.rec.anlog [Lantus Insulin 100 Unit/1 ml 10 ml] 20 units SUBCUT QHS 01/10/20 Levofloxacin [Levaquin 750 mg Tablet] 750 mg PO DAILY #8 tab 01/10/20 Lidocaine HCl [Xylocaine 2% Viscous Soln 15 ml Udcup] 15 ml PO Q6HP PRN #10 udc 01/10/20 Metronidazole [Flagyl 500 mg Tablet] 500 mg PO TID #24 tablet 01/10/20 Tramadol HCl [Ultram] 50 mg PO Q8HP PRN #9 tablet 01/10/20 History of Present Illiness History of Present Illness: STAR REYNAGA is a 54 year old female with a history of kidney/pancreas transplant with subsequent failed pancreas. She has hypertension, gastroesophageal reflux disease, muscle spasms and chronic pain. She recently saw her dentist and has very poor dentition with multiple caries and rotted teeth. Her dentist currently is treating her for a left mandibular abscess. This is the most likely cause for this episode of diabetic ketoacidosis. The patient was placed on an insulin infusion. The compliance assistant evaluated the patient and felt that the patient did not meet ICU criteria and so the patient was referred to the hospitalist service for admission. The patient was acidotic with a bicarb of 8 and an anion gap. She was also given IV fluids and referred to the hospitalist service for admission as above. Hospital Course Hospital Course: Patient was initially admitted and treated for diabetic ketoacidosis. This was suspected to have been precipitated by her dental infection. Patient notably had significant swelling and tenderness over her left mandible. Patient was placed on insulin drip with subsequent resolution of her diabetic ketoacidosis. Patient was then transitioned to oral diabetic diet and subcutaneous Lantus. Patient has insulin had to be readjusted to a few times due to episode of a.m. hypoglycemia likely due to infection. Patient was treated with Unasyn and later clindamycin for her suspected dental abscess. Maxillofacial CT scan yesterday was negative for abscess suggesting that initially suspected abscess may have drained naturally and resolved with antibiotics. Patient's vitals have remained stable. Patient still does have odontogenic infection which will require treatment and has been placed on Levaquin and Flagyl for several more days to complete treatment for such infection in an immunocompromised patient given that she is on immunosuppressants post transplant. Patient has informed me that she has a scheduled appointment to follow-up with a dentist tomorrow for further management of this odontogenic infection. Physical Exam Vital Signs: Temp Pulse Resp BP Pulse Ox 98.1 F 77 17 106/47 L 90 L 01/10/20 11:38 01/10/20 11:38 01/10/20 11:38 01/10/20 11:38 01/10/20 11:38 Intake & Output 01/09/20 01/10/20 01/11/20 06:59 06:59 06:59 Intake Total 1370 1000 50 Output Total 0 0 Balance 1370 1000 50 Weight 62.5 kg 61.8 kg General appearance: PRESENT: no acute distress, cooperative Teeth exam: PRESENT: dental tenderness, poor dentation Results Laboratory Results: WBC 6.0 10^3/uL (4.0-10.5) 01/09/20 07:30 RBC 3.15 10^6/uL (3.72-5.28) L 01/09/20 07:30 Hgb 8.1 g/dL (12.0-15.5) L 01/09/20 07:30 Hct 25.1 % (36.0-47.0) L 01/09/20 07:30 MCV 80 fl (80-97) 01/09/20 07:30 MCH 25.7 pg (27.0-33.4) L 01/09/20 07:30 MCHC 32.3 g/dL (32.0-36.0) 01/09/20 07:30 RDW 16.8 % (11.5-14.0) H 01/09/20 07:30 Plt Count 246 10^3/uL (150-450) 01/09/20 07:30 Lymph % (Auto) 28.2 % (13-45) 01/08/20 06:44 Gage % (Auto) 7.6 % (3-13) 01/08/20 06:44 Eos % (Auto) 3.0 % (0-6) 01/08/20 06:44 Baso % (Auto) 0.8 % (0-2) 01/08/20 06:44 Reticulocyte # 0.054 10^6/uL (0.028-0.122) 01/08/20 06:44 Absolute Neuts (auto) 3.5 10^3/uL (1.7-8.2) 01/08/20 06:44 Absolute Lymphs (auto) 1.6 10^3/uL (0.5-4.7) 01/08/20 06:44 Absolute Monos (auto) 0.4 10^3/uL (0.1-1.4) 01/08/20 06:44 Absolute Eos (auto) 0.2 10^3/uL (0.0-0.6) 01/08/20 06:44 Absolute Basos (auto) 0.0 10^3/uL (0.0-0.2) 01/08/20 06:44 Seg Neutrophils % 60.4 % (42-78) 01/08/20 06:44 Retic Count (auto) 1.66 % (0.66-2.85) 01/08/20 06:44 PT 14.7 SEC (11.4-15.4) 01/03/20 05:37 INR 1.14 01/03/20 05:37 VBG pH 7.17 (7.30-7.42) L* 01/03/20 05:37 VBG pCO2 32.5 mmHg (35-63) L 01/03/20 05:37 VBG HCO3 11.6 mmol/L (20-32) L 01/03/20 05:37 VBG Base Excess -15.8 mmol/L 01/03/20 05:37 Sodium 138.7 mmol/L (137-145) 01/09/20 07:30 Potassium 4.9 mmol/L (3.6-5.0) 01/09/20 07:30 Chloride 110 mmol/L (98-107) H 01/09/20 07:30 Carbon Dioxide 22 mmol/L (22-30) 01/09/20 07:30 Anion Gap 7 (5-19) 01/09/20 07:30 BUN 21 mg/dL (7-20) H 01/09/20 07:30 Creatinine 1.26 mg/dL (0.52-1.25) H 01/09/20 07:30 Est GFR ( Amer) 54 (>60) L 01/09/20 07:30 Est GFR (MDRD) Non-Af 45 (>60) L 01/09/20 07:30 Glucose 155 mg/dL (75-110) H 01/09/20 07:30 POC Glucose 305 mg/dL (70-110) H 01/09/20 21:26 Hemoglobin A1c % 9.2 % (4.7-6.0) H 01/06/20 04:57 Lactic Acid 1.3 mmol/L (0.7-2.1) 01/03/20 10:04 Calcium 8.1 mg/dL (8.4-10.2) L 01/09/20 07:30 Magnesium 1.8 mg/dL (1.6-2.3) 01/05/20 04:18 Iron 21.3 ug/dL (37-170) L 01/08/20 06:44 TIBC 253 ug/dL (250-450) 01/08/20 06:44 % Saturation 8 % 01/08/20 06:44 Erythropoietin 132.8 mIU/mL (2.6-18.5) H 01/07/20 12:17 Ferritin 25.20 ng/mL (11.1-264.0) 01/08/20 06:44 Total Bilirubin 0.4 mg/dL (0.2-1.3) 01/06/20 04:57 Direct Bilirubin 0.4 mg/dL (0.0-0.4) 01/06/20 04:57 Neonat Total Bilirubin Not Reportable 01/06/20 04:57 Neonat Direct Bilirubin Not Reportable 01/06/20 04:57 Neonat Indirect Bili Not Reportable 01/06/20 04:57 AST 50 U/L (14-36) H 01/06/20 04:57 ALT 90 U/L (<35) 01/06/20 04:57 Alkaline Phosphatase 422 U/L (38-126) H 01/06/20 04:57 Total Protein 6.0 g/dL (6.3-8.2) L 01/06/20 04:57 Albumin 2.9 g/dL (3.5-5.0) L 01/06/20 04:57 Vitamin B12 930.0 pg/mL (239-931) 01/08/20 06:44 Folate 8.42 ng/mL (>2.76) 01/08/20 06:44 Urine Color YELLOW 01/03/20 12:01 Urine Appearance SLIGHTLY-CLOUDY 01/03/20 12:01 Urine pH 5.0 (5.0-9.0) 01/03/20 12:01 Ur Specific Graff 1.017 01/03/20 12:01 Urine Protein 30 mg/dL (NEGATIVE) H 01/03/20 12:01 Urine Glucose (UA) >=500 mg/dL (NEGATIVE) H 01/03/20 12:01 Urine Ketones 20 mg/dL (NEGATIVE) H 01/03/20 12:01 Urine Blood MODERATE (NEGATIVE) H 01/03/20 12:01 Urine Nitrite (Reflex) NEGATIVE (NEGATIVE) 01/03/20 12:01 Urine Bilirubin NEGATIVE (NEGATIVE) 01/03/20 12:01 Urine Urobilinogen NEGATIVE mg/dL (<2.0) 01/03/20 12:01 Leukocyte Esterase Rfl TRACE (NEGATIVE) H 01/03/20 12:01 Urine RBC (Auto) 9 /HPF 01/03/20 12:01 Urine WBC (Reflex) 28 /HPF 01/03/20 12:01 Squamous Epi Cells Auto 1 /HPF 01/03/20 12:01 Urine Mucus (Auto) RARE /LPF 01/03/20 12:01 Urine Ascorbic Acid NEGATIVE (NEGATIVE) 01/03/20 12:01 Stool Occult Blood NEGATIVE (NEGATIVE) 01/07/20 21:20 Mycophenolic Acid 1.8 ug/mL (1.0-3.5) 01/03/20 16:11 MPA Glucuronide 37 ug/mL (15-125) 01/03/20 16:11 Tacrolimus 3.8 ng/mL (2.0-20.0) 01/03/20 16:11 Impressions: Mandible X-Ray 01/06/20 06:00 IMPRESSION: No acute fracture. No sinus air-fluid levels. Soft tissue swelling along the left face/cheek. Facial Bones CT 01/09/20 00:00 IMPRESSION: No abscess. Plan Time Spent: Less than 30 Minutes Stroke Is this a Stroke Patient?: No Acute Heart Failure - Is this a Heart Failure Patient?: No
== END 2020-01-10 12:38 | disposition home or self-care (01) | DRG 157 ==
LOC: ER 03:29 → EH 08:35 → 3W 13:22
PROVIDERS: ADMIT Hospitalist; ATTEND Hospitalist
DX: K04.7 Periapical abscess without sinus (principal); E08.10 Diabetes mellitus due to underlying condition with ketoacidosis without coma; N17.9 Acute kidney failure, unspecified; T86.891 Other transplanted tissue failure; Z94.0 Kidney transplant status; D63.1 Anemia in chronic kidney disease; N18.9 Chronic kidney disease, unspecified; E11.22 Type 2 diabetes mellitus with diabetic chronic kidney disease; R53.81 Other malaise; I12.9 Hypertensive chronic kidney disease with stage 1 through stage 4 chronic kidney disease, or unspecified chronic kidney disease; K21.9 Gastro-esophageal reflux disease without esophagitis; M62.838 Other muscle spasm; G89.29 Other chronic pain; K02.9 Dental caries, unspecified; M19.90 Unspecified osteoarthritis, unspecified site; F32.9 Major depressive disorder, single episode, unspecified; F17.210 Nicotine dependence, cigarettes, uncomplicated; E87.5 Hyperkalemia; E87.6 Hypokalemia; Z79.4 Long term (current) use of insulin; Z79.899 Other long term (current) drug therapy; Z86.711 Personal history of pulmonary embolism; Z83.3 Family history of diabetes mellitus; Z88.8 Allergy status to other drugs, medicaments and biological substances
CPT/HCPCS: 36415; 70110; 70487; 80048; 80053; 80197; 81001; 82272; 82542; 82607; 82668; 82728; 82746; 82803; 82962; 83036; 83540; 83550; 83605; 83735; 85025; 85027; 85045; 85610; 87040; 87045; 87086; 87205; 93005; 93010; 96360; 99291; J0295; J1170; J1644; J1815; J2270; J3480; J3490; J7030; J7042; J7050; J7120; J7507; S0119

== ENCOUNTER 2020-01-30 05:32 | Emergency (ER) | payer SELFPAY ==
--- NOTE | 2020-01-30 06:20 | ER Document Report ---
ED GI/ - General Chief Complaint: Abdominal Pain Stated Complaint: ABDOMINAL PAIN Time Seen by Provider: 01/30/20 06:06 Primary Care Provider: PATRICIO FRAIRE MD [Primary Care Provider] - Follow up as needed Notes: 54-year-old woman presents to the emergency department with a 3-day history of abdominal pain. Apparently pain began on Thursday and has continued to escalate. She also notes that she has had poor intake and feels that she may be dehydrated. Patient states that 3 weeks ago she was seen with diarrhea. Denies fever or diarrhea at this time. She has had mild nausea but no vomiting. Last meal was 01/29/2020 in the afternoon. TRAVEL OUTSIDE OF THE [place] IN LAST 30 DAYS: No - Related Data Allergies/Adverse Reactions: metoclopramide HCl [From [facility]] Allergy (Verified 07/14/17 13:13) Past Medical History - Social History Smoking Status: Unknown if Ever Smoked Family History: Reviewed & Not Pertinent, DM - Past Medical History Cardiac Medical History: Reports: Hx Hypertension, Hx Pulmonary Embolism Endocrine Medical History: Reports: Hx Diabetes Mellitus Type 1, Hx Diabetes Mellitus Type 2 Renal/ Medical History: Denies: Hx Peritoneal Dialysis GI Medical History: Reports: Hx Gastroesophageal Reflux Disease Musculoskeletal Medical History: Reports Hx Arthritis, Reports Hx Musculoskeletal Deformity, Reports Hx Musculoskeletal Trauma Psychiatric Medical History: Reports: Hx Anxiety, Hx Depression Past Surgical History: Reports: Hx Appendectomy, Hx Bowel Surgery, Hx Cholecystectomy, Hx Hysterectomy, Hx Kidney (Renal Surgery) - transplant 1999, Hx Orthopedic Surgery - Right elbow surgery, Hx Pancreatic Surgery - transplant 1999, Hx Tonsillectomy, Hx Tubal Ligation, Other - Pancreatic-renal transplant done in 1999 - Immunizations Immunizations up to date: No Hx Diphtheria, Pertussis, Tetanus Vaccination: Yes Hx Pneumococcal Vaccination: 10/14/15 Review of Systems - Review of Systems Notes: Constitutional: Negative for fever. HENT: Negative for sore throat. Eyes: Negative for visual changes. Cardiovascular: Negative for chest pain. Respiratory: Negative for shortness of breath. Gastrointestinal: + Abdominal pain, no vomiting, no diarrhea. Genitourinary: Negative for dysuria. Musculoskeletal: Negative for back pain. Skin: Negative for rash. Neurological: Negative for headaches, weakness or numbness. 10 point ROS negative except as marked above and in HPI. Physical Exam - Vital signs Vitals: Resp Pulse Ox 29 H 93 03/02/20 05:45 01/30/20 05:45 - Notes Notes: PHYSICAL EXAMINATION: Physical Exam: General: Well-nourished well-developed 54-year-old female in mild distress HEENT: NC/AT, pupils equal round and reactive to light, MM moist,nares clear, oropharynx clear, airway patent Neck: supple, no adenopathy, no masses. Good range of motion Lungs: clear, no wheezing, no rales no rhonchi CVS: Regular rate and rhythm no murmur gallop or rub Abdomen: Soft, active, tenderness in the midepigastric, right upper quadrant and right lower quadrant. Right lower quadrant tenderness greatest and + guarding, no rebound, no masses, no hepatosplenomegaly Ext: No edema, clubbing or cyanosis. Neuro: Alert and responsive, moving all 4 extremities on command, cranial nerves intact, no focal findings Skin: Intact no open lesions, no rash PSYCH: Normal mood, normal affect. Course - Re-evaluation Re-evalutation: 01/30/20 10:25 54-year-old renal transplant patient presenting with abdominal pain, creatinine baseline of 1.2, now 2.27. WBC count 21.8, no fever, no obvious source of infection. Urinalysis and chest x-ray are non-diagnostic. Sodium of 129. I discussed these findings with the patient and explained that while her creatinine may be explained by dehydration, the question of rejection of your transplanted kidney needs to be assessed. We will continue hydration, blood cultures, lactate were identified in the ER the patient does not appear septic, Zosyn 3.375 g given IV. Patient has received 2 L of fluid, the third liter is begun at 125/h. I have spoken with the renal technologies division chair at [facility] Dr. Majano, states that he would like to have the patient transferred to [facility] hospitals. Dr. Lazcano, emergency physician has accepted the patient emergency department to emergency department. - Vital Signs Vital signs: Temp Pulse Resp BP Pulse Ox 97.9 F 82 12 111/58 L 97 01/30/20 10:57 01/30/20 10:57 01/30/20 10:57 01/30/20 10:57 01/30/20 10:57 - Laboratory Result Diagrams: 01/30/20 06:09 01/30/20 06:09 Laboratory results interpreted by me: 01/30/20 01/30/20 01/30/20 06:09 06:09 06:09 WBC 21.8 H RBC 3.52 L Hgb 8.8 L Hct 27.5 L MCV 78 L MCH 25.0 L RDW 17.0 H Seg Neuts % (Manual) 93 H Lymphocytes % (Manual) 4 L Abs Neuts (Manual) 20.3 H PT 17.0 H APTT 39.2 H Sodium 129.2 L Chloride 97 L Carbon Dioxide 19 L BUN 56 H Creatinine 2.27 H Est GFR ( Amer) 27 L Est GFR (MDRD) Non-Af 23 L Glucose 365 H ALT 40 H Alkaline Phosphatase 276 H Total Protein 5.7 L Albumin 2.9 L Lipase < 10.0 L Urine Protein Urine Glucose (UA) Urine Ketones 01/30/20 08:37 WBC RBC Hgb Hct MCV MCH RDW Seg Neuts % (Manual) Lymphocytes % (Manual) Abs Neuts (Manual) PT APTT Sodium Chloride Carbon Dioxide BUN Creatinine Est GFR ( Amer) Est GFR (MDRD) Non-Af Glucose ALT Alkaline Phosphatase Total Protein Albumin Lipase Urine Protein 30 H Urine Glucose (UA) >=500 H Urine Ketones 20 H I have reviewed laboratory data and used this information for the treatment decisions regarding the patient. - Diagnostic Test Radiology reviewed: Image reviewed, Reports reviewed - Chest x-ray: No acute infiltrates or effusions CT abdomen and pelvis, noncontrast study: Positive free fluid in the pelvis, no obvious intra-abdominal abnormalities noted. Discharge - Discharge Clinical Impression: Acute kidney injury, Hyponatremia, Poorly controlled diabetes mellitus, Renal transplant recipient Leukocytosis Qualifiers: Leukocytosis type: unspecified Qualified Code(s): D72.829 - Elevated white blood cell count, unspecified Condition: Stable Disposition: [place] Referrals: PATRICIO FRAIRE MD [Primary Care Provider] - Follow up as needed
[2020-01-30] MEDS ORDERED: NORMAL SALINE 1000 ML 1,000 ML IV ONE ×3 (06:21→10:36)
[2020-01-30] MEDS ORDERED: ONDANSETRON HCL INJ/PF 4 MG/2 ML SDV IV ONE (06:21)
[2020-01-30] MEDS ORDERED: MORPHINE SULFATE 10 MG/ML INJ IV ONE ×2 (06:22→08:01)
[2020-01-30 06:28] LABS: INTERNATIONAL RATION (INR) 1.37
[2020-01-30 06:29] LABS: HEMATOCRIT 27.5 % (36.0-47.0); HEMOGLOBIN 8.8 g/dL (12.0-15.5); MEAN CORPUSCULAR HGB CONC 32.1 g/dL (32.0-36.0); MEAN CORPUSCULAR VOLUME 78 fl (80-97); PARTIAL THROMBOPLASTIN TIME 39.2 SEC (23.5-35.8); PLATELET COUNT 192 10^3/uL (150-450); RED BLOOD COUNT 3.52 10^6/uL (3.72-5.28); WHITE BLOOD COUNT 21.8 10^3/uL (4.0-10.5)
[2020-01-30 06:46] LABS: ALBUMIN 2.9 g/dL (3.5-5.0); ALKALINE PHOSPHATASE 276 U/L (38-126); ANION GAP 13 (5-19); ASPARTATE AMINO TRANSFERASE 18 U/L (14-36); BILIRUBIN,DIRECT 0.1 mg/dL (0.0-0.4); BILIRUBIN,TOTAL 0.8 mg/dL (0.2-1.3); BLOOD UREA NITROGEN 56 mg/dL (7-20); CALCIUM 8.6 mg/dL (8.4-10.2); CARBON DIOXIDE 19 mmol/L (22-30); CHLORIDE 97 mmol/L (98-107); GLUCOSE 365 mg/dL (75-110); POTASSIUM 4.7 mmol/L (3.6-5.0); TOTAL PROTEIN 5.7 g/dL (6.3-8.2)
[2020-01-30 07:02] LABS: ABSOLUTE LYMPHOCYTES# (MANUAL) 0.9 10^3/uL (0.5-4.7); ABSOLUTE MONOCYTES # (MANUAL) 0.7 10^3/uL (0.1-1.4); BASOPHILS % (MANUAL) 0 % (0-2); EOSINOPHILS % (MANUAL) 0 % (0-6); LYMPHOCYTES % (MANUAL) 4 % (13-45); MONOCYTES % (MANUAL) 3 % (3-13); SEGMENTED NEUTROPHILS % (MAN) 93 % (42-78); TOTAL CELLS COUNTED 100
[2020-01-30 07:05] LABS: ANISOCYTOSIS 1+; HYPOCHROMASIA SLIGHT; TEAR DROP CELLS SLIGHT; TOXIC GRANULATION SLIGHT
[2020-01-30 07:06] LABS: PLATELET COMMENT ADEQUATE
--- NOTE | 2020-01-30 07:33 | RADIOLOGY REPORT (SQ) ---
EXAM: CT Abdomen and Pelvis Without Intravenous Contrast EXAM DATE/TIME: 01/30/2020 6:51 AM CLINICAL HISTORY: The patient is 54 years old and is Female; abdominal pain TECHNIQUE: Axial computed tomography images of the abdomen and pelvis without intravenous contrast. Sagittal and coronal reformatted images were created and reviewed. This CT exam was performed using one or more of the following dose reduction techniques: automated exposure control, adjustment of the mA and/or kV according to patient size, and/or use of iterative reconstruction technique. COMPARISON: CT abdomen pelvis from 03/14/2013 FINDINGS: LUNG BASES: There is minimal bibasilar atelectasis. ABDOMEN: LIVER: Unremarkable. No obvious liver masses appreciated on this non-contrast exam. GALLBLADDER AND BILE DUCTS: The gallbladder is surgically absent. No significant biliary ductal dilatation appreciated. PANCREAS: There is complete fatty replacement of the torres martinez pancreas. The pancreas transplant visualized in the right lower quadrant on the prior study is no longer visualized and likely is also fatty replaced. There is mild stranding at this level which is favored to be postsurgical. SPLEEN: Unremarkable. No splenomegaly. ADRENALS: Unremarkable. No adrenal nodules or masses identified. KIDNEYS AND URETERS: The left kidney is absent. The right torres martinez kidney is severely atrophic. A transplant kidney is visualized in the right pelvis. There is no hydronephrosis of the transplant kidney. Probable focal scarring and/or trace fluid visualized lateral to the transplant kidney. This is similar to the prior exam. STOMACH AND BOWEL: No evidence of bowel obstruction. No significant bowel wall thickening appreciated. PELVIS: APPENDIX: The appendix is not visualized and is likely surgically absent. BLADDER: Unremarkable. No stones. REPRODUCTIVE: The patient is reportedly status post hysterectomy. A rounded soft tissue density visualized in the right pelvis presumably represents the right ovary. This is not significantly changed in appearance. ABDOMEN and PELVIS: INTRAPERITONEAL SPACE: Small amount of free fluid in the pelvis. No obvious free air. Irregular lucency visualized lateral to the transplant kidney (series [id number], image [id number]) is favored to be within small bowel. BONES/JOINTS: No acute fracture. No dislocation. SOFT TISSUES: No significant abnormalities in the superficial soft tissues. VASCULATURE: Atherosclerotic calcifications are noted. No aortic aneurysm. LYMPH NODES: No significant lymph node enlargement. IMPRESSION: 1. Small amount of free fluid in the pelvis. 2. Air density visualized lateral to the superior portion of the transplant kidney. This is favored to be within small bowel at this level. Extraluminal air is felt to be less likely. However, if clinically indicated, a repeat CT with oral contrast could be performed for further evaluation.
[2020-01-30] MEDS ORDERED: PIPERACILLIN/TAZOBACTAM 3.375 GM VIAL IV ONE (08:02)
--- NOTE | 2020-01-30 08:34 | RADIOLOGY REPORT (SQ) ---
EXAM DESCRIPTION: CHEST SINGLE VIEW COMPLETED DATE/TIME: 01/30/2020 8:16 am REASON FOR STUDY: Cough COMPARISON: PA and lateral views of the chest from 01/10/2013 EXAM PARAMETERS: NUMBER OF VIEWS: One view. TECHNIQUE: An AP view of the chest was obtained. RADIATION DOSE: NA LIMITATIONS: None. FINDINGS: LUNGS AND PLEURA: Bibasilar atelectasis. There is no acute consolidation, sizeable pleura l effusion or pneumothorax. MEDIASTINUM AND HILAR STRUCTURES: No mediastinal or hilar contour abnormality. HEART AND VASCULAR STRUCTURES: The cardiac silhouette and pulmonary vasculature are within normal greenberg its. BONES: No acute findings. HARDWARE: Surgical clips projecting within the left upper extremity. OTHER: No other finding. IMPRESSION: No acute cardiopulmonary process. TECHNICAL DOCUMENTATION: JOB ID: [id number] [employer]- All Rights Reserved Reading location - IP/workstation name: [email or web address]
[2020-01-30 08:53] LABS: AMORPHOUS SEDIMENT,URINE TRACE /HPF; APPEARANCE,URINE SLIGHTLY-CLOUDY; BILIRUBIN,URINE NEGATIVE (NEGATIVE); COLOR,URINE YELLOW; GLUCOSE, URINE >=500 mg/dL (NEGATIVE); KETONES,URINE 20 mg/dL (NEGATIVE); LEUKOCYTE ESTERASE,URINE NEGATIVE (NEGATIVE); NITRITE,URINE NEGATIVE (NEGATIVE); PROTEIN,URINE 30 mg/dL (NEGATIVE); URINE SPECIFIC GRAVITY 1.012; UROBILINOGEN,URINE NEGATIVE mg/dL (<2.0)
[2020-01-30] MEDS ORDERED: INSULIN REG, HUMAN 100 UNIT/ML 3 ML VIAL (PYX) IV ONE (10:34)
[2020-01-30 10:58] VITALS: BP 111/58
[2020-01-30 13:01] LABS: AMYLASE < 30 U/L (30-110)
== END 2020-01-30 11:15 | disposition short-term general hospital (02) ==
LOC: ER 05:32
DX: N17.9 Acute kidney failure, unspecified (principal); D72.829 Elevated white blood cell count, unspecified; E11.9 Type 2 diabetes mellitus without complications; R10.9 Unspecified abdominal pain; E87.1 Hypo-osmolality and hyponatremia; R11.0 Nausea; I10 Essential (primary) hypertension; Z86.711 Personal history of pulmonary embolism; Z90.49 Acquired absence of other specified parts of digestive tract; Z90.710 Acquired absence of both cervix and uterus; Z94.0 Kidney transplant status; Z94.83 Pancreas transplant status
CPT/HCPCS: 96376; 99285; 96361; 96375; 96365; 96366; 36415; 87040; 82150; 83605; 83690; 85025; 85610; 85730; 80053; 81001; 71045; 74176; J2270; J1815; J2405; J7030; J2543

== ENCOUNTER → 2020-02-16 | Outpatient (CLI) | payer SELFPAY ==
[2020-02-16 12:05] LABS: ABSOLUTE BASOPHILS # (AUTO) 0.1 10^3/uL (0.0-0.2); ABSOLUTE EOSINOPHILS # (AUTO) 0.1 10^3/uL (0.0-0.6); ABSOLUTE LYMPHOCYTES (AUTO) 1.5 10^3/uL (0.5-4.7); ABSOLUTE MONOCYTES (AUTO) 0.5 10^3/uL (0.1-1.4); BASOPHILS % (AUTO) 1.2 % (0-2); EOSINOPHILS % (AUTO) 0.8 % (0-6); HEMATOCRIT 31.9 % (36.0-47.0); LYMPHOCYTES % (AUTO) 20.5 % (13-45); MEAN CORPUSCULAR HEMOGLOBIN 24.3 pg (27.0-33.4); MEAN CORPUSCULAR HGB CONC 31.4 g/dL (32.0-36.0); MEAN CORPUSCULAR VOLUME 77 fl (80-97); MONOCYTES % (AUTO) 6.9 % (3-13); PLATELET COUNT 402 10^3/uL (150-450); RED BLOOD COUNT 4.12 10^6/uL (3.72-5.28); RED CELL DISTRIBUTION WIDTH 17.7 % (11.5-14.0); SEGMENTED NEUTROPHILS % (AUTO) 70.6 % (42-78); TOTAL CELLS COUNTED % (AUTO) 100 %; WHITE BLOOD COUNT 7.1 10^3/uL (4.0-10.5)
[2020-02-16 12:29] LABS: ANION GAP 11 (5-19); BLOOD UREA NITROGEN 37 mg/dL (7-20); CALCIUM 9.5 mg/dL (8.4-10.2); CARBON DIOXIDE 22 mmol/L (22-30); CHLORIDE 106 mmol/L (98-107); GLUCOSE 114 mg/dL (75-110); PHOSPHORUS 4.6 mg/dL (2.5-4.5); POTASSIUM 5.8 mmol/L (3.6-5.0)
== END ==
LOC: OD 10:49
PROVIDERS: ATTEND Internal Medicine Nephrology
DX: D89.9 Disorder involving the immune mechanism, unspecified (principal); Z94.0 Kidney transplant status; Z79.899 Other long term (current) drug therapy; E55.9 Vitamin D deficiency, unspecified; Z11.4 Encounter for screening for human immunodeficiency virus [HIV]; Z78.9 Other specified health status; Z94.83 Pancreas transplant status
CPT/HCPCS: 36415; 80048; 80197; 83735; 84100; 85025

== ENCOUNTER → 2020-03-07 | Outpatient (CLI) | payer SELFPAY ==
[2020-03-07 10:59] LABS: ABSOLUTE LYMPHOCYTES (AUTO) 1.4 10^3/uL (0.5-4.7); ABSOLUTE MONOCYTES (AUTO) 0.4 10^3/uL (0.1-1.4); ABSOLUTE NEUT (AUTO) 6.1 10^3/uL (1.7-8.2); BASOPHILS % (AUTO) 0.4 % (0-2); EOSINOPHILS % (AUTO) 0.5 % (0-6); HEMATOCRIT 31.6 % (36.0-47.0); HEMOGLOBIN 10.2 g/dL (12.0-15.5); LYMPHOCYTES % (AUTO) 17.8 % (13-45); MEAN CORPUSCULAR HEMOGLOBIN 24.6 pg (27.0-33.4); MEAN CORPUSCULAR HGB CONC 32.4 g/dL (32.0-36.0); MEAN CORPUSCULAR VOLUME 76 fl (80-97); MONOCYTES % (AUTO) 4.9 % (3-13); PLATELET COUNT 322 10^3/uL (150-450); RED BLOOD COUNT 4.17 10^6/uL (3.72-5.28); RED CELL DISTRIBUTION WIDTH 18.2 % (11.5-14.0); SEGMENTED NEUTROPHILS % (AUTO) 76.4 % (42-78); TOTAL CELLS COUNTED % (AUTO) 100 %
[2020-03-07 11:16] LABS: ANION GAP 10 (5-19); BLOOD UREA NITROGEN 33 mg/dL (7-20); CALCIUM 9.2 mg/dL (8.4-10.2); CARBON DIOXIDE 20 mmol/L (22-30); CHLORIDE 107 mmol/L (98-107); GLUCOSE 135 mg/dL (75-110); PHOSPHORUS 4.4 mg/dL (2.5-4.5); POTASSIUM 5.3 mmol/L (3.6-5.0)
== END ==
LOC: OD 10:25
PROVIDERS: ATTEND Internal Medicine Nephrology
DX: D89.9 Disorder involving the immune mechanism, unspecified (principal); Z94.0 Kidney transplant status; B25.9 Cytomegaloviral disease, unspecified; N39.0 Urinary tract infection, site not specified; E11.29 Type 2 diabetes mellitus with other diabetic kidney complication; Z11.4 Encounter for screening for human immunodeficiency virus [HIV]; Z79.899 Other long term (current) drug therapy; Z94.83 Pancreas transplant status
CPT/HCPCS: 36415; 80048; 80197; 83735; 84100; 85025

== ENCOUNTER → 2020-03-19 | Outpatient (CLI) | payer SELFPAY ==
[2020-03-19 12:43] LABS: ABSOLUTE BASOPHILS # (AUTO) 0.1 10^3/uL (0.0-0.2); ABSOLUTE EOSINOPHILS # (AUTO) 0.1 10^3/uL (0.0-0.6); ABSOLUTE LYMPHOCYTES (AUTO) 2.3 10^3/uL (0.5-4.7); ABSOLUTE MONOCYTES (AUTO) 0.4 10^3/uL (0.1-1.4); ABSOLUTE NEUT (AUTO) 5.8 10^3/uL (1.7-8.2); BASOPHILS % (AUTO) 0.8 % (0-2); EOSINOPHILS % (AUTO) 1.4 % (0-6); HEMATOCRIT 31.7 % (36.0-47.0); HEMOGLOBIN 10.2 g/dL (12.0-15.5); LYMPHOCYTES % (AUTO) 26.5 % (13-45); MEAN CORPUSCULAR HEMOGLOBIN 24.3 pg (27.0-33.4); MEAN CORPUSCULAR HGB CONC 32.3 g/dL (32.0-36.0); MEAN CORPUSCULAR VOLUME 75 fl (80-97); MONOCYTES % (AUTO) 4.3 % (3-13); PLATELET COUNT 290 10^3/uL (150-450); RED BLOOD COUNT 4.22 10^6/uL (3.72-5.28); RED CELL DISTRIBUTION WIDTH 17.9 % (11.5-14.0); TOTAL CELLS COUNTED % (AUTO) 100 %; WHITE BLOOD COUNT 8.6 10^3/uL (4.0-10.5)
[2020-03-19 13:06] LABS: ANION GAP 8 (5-19); BLOOD UREA NITROGEN 33 mg/dL (7-20); CALCIUM 8.8 mg/dL (8.4-10.2); CARBON DIOXIDE 21 mmol/L (22-30); CHLORIDE 107 mmol/L (98-107); GLUCOSE 126 mg/dL (75-110); POTASSIUM 5.2 mmol/L (3.6-5.0)
== END ==
LOC: OD 10:40
PROVIDERS: ATTEND Internal Medicine Nephrology
DX: D89.9 Disorder involving the immune mechanism, unspecified (principal); Z79.899 Other long term (current) drug therapy; E55.9 Vitamin D deficiency, unspecified; Z94.0 Kidney transplant status; Z94.83 Pancreas transplant status; B25.9 Cytomegaloviral disease, unspecified
CPT/HCPCS: 36415; 80048; 80197; 83735; 84100; 85025

== ENCOUNTER → 2020-05-02 | Outpatient (CLI) | payer SELFPAY ==
[2020-05-02 11:01] LABS: ABSOLUTE EOSINOPHILS # (AUTO) 0.2 10^3/uL (0.0-0.6); ABSOLUTE LYMPHOCYTES (AUTO) 2.4 10^3/uL (0.5-4.7); ABSOLUTE MONOCYTES (AUTO) 0.5 10^3/uL (0.1-1.4); ABSOLUTE NEUT (AUTO) 5.1 10^3/uL (1.7-8.2); BASOPHILS % (AUTO) 0.5 % (0-2); EOSINOPHILS % (AUTO) 2.9 % (0-6); HEMOGLOBIN 10.4 g/dL (12.0-15.5); LYMPHOCYTES % (AUTO) 29.6 % (13-45); MEAN CORPUSCULAR HEMOGLOBIN 23.3 pg (27.0-33.4); MEAN CORPUSCULAR HGB CONC 31.5 g/dL (32.0-36.0); MEAN CORPUSCULAR VOLUME 74 fl (80-97); MONOCYTES % (AUTO) 5.8 % (3-13); PLATELET COUNT 278 10^3/uL (150-450); RED BLOOD COUNT 4.47 10^6/uL (3.72-5.28); SEGMENTED NEUTROPHILS % (AUTO) 61.2 % (42-78); TOTAL CELLS COUNTED % (AUTO) 100 %; WHITE BLOOD COUNT 8.3 10^3/uL (4.0-10.5)
[2020-05-02 11:33] LABS: ANION GAP 10 (5-19); BLOOD UREA NITROGEN 30 mg/dL (7-20); CALCIUM 9.6 mg/dL (8.4-10.2); CARBON DIOXIDE 21 mmol/L (22-30); CHLORIDE 108 mmol/L (98-107); GLUCOSE 129 mg/dL (75-110); PHOSPHORUS 4.8 mg/dL (2.5-4.5); POTASSIUM 4.3 mmol/L (3.6-5.0)
== END ==
LOC: OD 10:12
PROVIDERS: ATTEND Internal Medicine Nephrology
DX: D89.9 Disorder involving the immune mechanism, unspecified (principal); B25.9 Cytomegaloviral disease, unspecified; E11.29 Type 2 diabetes mellitus with other diabetic kidney complication; D63.1 Anemia in chronic kidney disease; Z94.0 Kidney transplant status; E55.9 Vitamin D deficiency, unspecified; Z79.899 Other long term (current) drug therapy; E83.30 Disorder of phosphorus metabolism, unspecified; Z94.83 Pancreas transplant status
CPT/HCPCS: 36415; 80048; 80197; 83036; 83735; 84100; 85025

== ENCOUNTER → 2020-05-21 | Outpatient (CLI) | payer SELFPAY ==
[2020-05-21 10:50] LABS: ABSOLUTE BASOPHILS # (AUTO) 0.1 10^3/uL (0.0-0.2); ABSOLUTE EOSINOPHILS # (AUTO) 0.2 10^3/uL (0.0-0.6); ABSOLUTE LYMPHOCYTES (AUTO) 2.6 10^3/uL (0.5-4.7); ABSOLUTE MONOCYTES (AUTO) 0.6 10^3/uL (0.1-1.4); ABSOLUTE NEUT (AUTO) 6.6 10^3/uL (1.7-8.2); EOSINOPHILS % (AUTO) 1.8 % (0-6); HEMOGLOBIN 9.7 g/dL (12.0-15.5); LYMPHOCYTES % (AUTO) 26.2 % (13-45); MEAN CORPUSCULAR HGB CONC 31.2 g/dL (32.0-36.0); MEAN CORPUSCULAR VOLUME 74 fl (80-97); MONOCYTES % (AUTO) 5.7 % (3-13); PLATELET COUNT 335 10^3/uL (150-450); RED BLOOD COUNT 4.21 10^6/uL (3.72-5.28); RED CELL DISTRIBUTION WIDTH 18.4 % (11.5-14.0); SEGMENTED NEUTROPHILS % (AUTO) 65.3 % (42-78); TOTAL CELLS COUNTED % (AUTO) 100 %; WHITE BLOOD COUNT 10.1 10^3/uL (4.0-10.5)
[2020-05-21 11:15] LABS: ANION GAP 9 (5-19); BLOOD UREA NITROGEN 32 mg/dL (7-20); CALCIUM 9.3 mg/dL (8.4-10.2); CARBON DIOXIDE 21 mmol/L (22-30); CHLORIDE 109 mmol/L (98-107); GLUCOSE 76 mg/dL (75-110); PHOSPHORUS 4.3 mg/dL (2.5-4.5); POTASSIUM 4.5 mmol/L (3.6-5.0)
== END ==
LOC: OD 10:10
PROVIDERS: ATTEND Internal Medicine Nephrology
DX: E55.9 Vitamin D deficiency, unspecified (principal); D89.9 Disorder involving the immune mechanism, unspecified; Z94.0 Kidney transplant status; B25.9 Cytomegaloviral disease, unspecified; E11.29 Type 2 diabetes mellitus with other diabetic kidney complication; Z11.4 Encounter for screening for human immunodeficiency virus [HIV]; Z79.899 Other long term (current) drug therapy; N39.0 Urinary tract infection, site not specified; Z94.83 Pancreas transplant status
CPT/HCPCS: 36415; 80048; 80197; 83735; 84100; 85025

== ENCOUNTER → 2020-06-28 | Outpatient (CLI) | payer SELFPAY ==
[2020-06-28 12:13] LABS: ABSOLUTE BASOPHILS # (AUTO) 0.1 10^3/uL (0.0-0.2); ABSOLUTE EOSINOPHILS # (AUTO) 0.2 10^3/uL (0.0-0.6); ABSOLUTE LYMPHOCYTES (AUTO) 1.3 10^3/uL (0.5-4.7); ABSOLUTE MONOCYTES (AUTO) 0.3 10^3/uL (0.1-1.4); ABSOLUTE NEUT (AUTO) 6.7 10^3/uL (1.7-8.2); BASOPHILS % (AUTO) 0.7 % (0-2); HEMOGLOBIN 10.3 g/dL (12.0-15.5); LYMPHOCYTES % (AUTO) 15.1 % (13-45); MEAN CORPUSCULAR HEMOGLOBIN 23.2 pg (27.0-33.4); MEAN CORPUSCULAR HGB CONC 31.3 g/dL (32.0-36.0); MEAN CORPUSCULAR VOLUME 74 fl (80-97); MONOCYTES % (AUTO) 3.8 % (3-13); PLATELET COUNT 243 10^3/uL (150-450); RED BLOOD COUNT 4.46 10^6/uL (3.72-5.28); RED CELL DISTRIBUTION WIDTH 18.1 % (11.5-14.0); SEGMENTED NEUTROPHILS % (AUTO) 78.4 % (42-78); TOTAL CELLS COUNTED % (AUTO) 100 %; WHITE BLOOD COUNT 8.5 10^3/uL (4.0-10.5)
[2020-06-28 12:33] LABS: ANION GAP 6 (5-19); BLOOD UREA NITROGEN 25 mg/dL (7-20); CARBON DIOXIDE 22 mmol/L (22-30); CHLORIDE 111 mmol/L (98-107); PHOSPHORUS 5.1 mg/dL (2.5-4.5)
[2020-06-28 12:39] LABS: GLUCOSE 55 mg/dL (75-110)
== END ==
LOC: OD 11:22
PROVIDERS: ATTEND Internal Medicine Nephrology
DX: D89.9 Disorder involving the immune mechanism, unspecified (principal); B25.9 Cytomegaloviral disease, unspecified; Z94.0 Kidney transplant status; E55.9 Vitamin D deficiency, unspecified; Z11.4 Encounter for screening for human immunodeficiency virus [HIV]; E11.29 Type 2 diabetes mellitus with other diabetic kidney complication; N39.0 Urinary tract infection, site not specified; D63.1 Anemia in chronic kidney disease; Z79.899 Other long term (current) drug therapy; Z94.83 Pancreas transplant status; Z78.9 Other specified health status
CPT/HCPCS: 36415; 80048; 80197; 83735; 84100; 85025

== ENCOUNTER → 2020-08-14 | Outpatient (CLI) | payer SELFPAY ==
[2020-08-14 12:13] LABS: ABSOLUTE BASOPHILS # (AUTO) 0.1 10^3/uL (0.0-0.2); ABSOLUTE EOSINOPHILS # (AUTO) 0.2 10^3/uL (0.0-0.6); ABSOLUTE LYMPHOCYTES (AUTO) 2.3 10^3/uL (0.5-4.7); ABSOLUTE MONOCYTES (AUTO) 0.5 10^3/uL (0.1-1.4); ABSOLUTE NEUT (AUTO) 5.2 10^3/uL (1.7-8.2); EOSINOPHILS % (AUTO) 2.5 % (0-6); HEMATOCRIT 32.2 % (36.0-47.0); HEMOGLOBIN 10.4 g/dL (12.0-15.5); LYMPHOCYTES % (AUTO) 27.6 % (13-45); MEAN CORPUSCULAR HEMOGLOBIN 23.9 pg (27.0-33.4); MEAN CORPUSCULAR HGB CONC 32.3 g/dL (32.0-36.0); MEAN CORPUSCULAR VOLUME 74 fl (80-97); MONOCYTES % (AUTO) 5.7 % (3-13); PLATELET COUNT 264 10^3/uL (150-450); RED BLOOD COUNT 4.36 10^6/uL (3.72-5.28); RED CELL DISTRIBUTION WIDTH 17.7 % (11.5-14.0); SEGMENTED NEUTROPHILS % (AUTO) 63.2 % (42-78); TOTAL CELLS COUNTED % (AUTO) 100 %; WHITE BLOOD COUNT 8.2 10^3/uL (4.0-10.5)
[2020-08-14 12:52] LABS: ANION GAP 10 (5-19); BLOOD UREA NITROGEN 39 mg/dL (7-20); CALCIUM 9.6 mg/dL (8.4-10.2); CARBON DIOXIDE 21 mmol/L (22-30); CHLORIDE 107 mmol/L (98-107); GLUCOSE 50 mg/dL (75-110); PHOSPHORUS 5.2 mg/dL (2.5-4.5); POTASSIUM 4.7 mmol/L (3.6-5.0)
== END ==
LOC: OD 11:00
PROVIDERS: ATTEND Internal Medicine Nephrology
DX: D89.9 Disorder involving the immune mechanism, unspecified (principal); B25.9 Cytomegaloviral disease, unspecified; Z94.0 Kidney transplant status; Z79.899 Other long term (current) drug therapy; E55.9 Vitamin D deficiency, unspecified; Z11.4 Encounter for screening for human immunodeficiency virus [HIV]; E11.29 Type 2 diabetes mellitus with other diabetic kidney complication; N39.0 Urinary tract infection, site not specified; Z94.83 Pancreas transplant status; Z78.9 Other specified health status
CPT/HCPCS: 36415; 80048; 80197; 83735; 84100; 85025

== ENCOUNTER → 2020-09-18 | Outpatient (CLI) | payer SELFPAY ==
[2020-09-18 11:55] LABS: ABSOLUTE BASOPHILS # (AUTO) 0.1 10^3/uL (0.0-0.2); ABSOLUTE EOSINOPHILS # (AUTO) 0.3 10^3/uL (0.0-0.6); ABSOLUTE LYMPHOCYTES (AUTO) 1.9 10^3/uL (0.5-4.7); ABSOLUTE MONOCYTES (AUTO) 0.3 10^3/uL (0.1-1.4); ABSOLUTE NEUT (AUTO) 3.6 10^3/uL (1.7-8.2); EOSINOPHILS % (AUTO) 5.6 % (0-6); HEMOGLOBIN 10.9 g/dL (12.0-15.5); LYMPHOCYTES % (AUTO) 30.2 % (13-45); MEAN CORPUSCULAR HEMOGLOBIN 24.4 pg (27.0-33.4); MEAN CORPUSCULAR HGB CONC 32.1 g/dL (32.0-36.0); MEAN CORPUSCULAR VOLUME 76 fl (80-97); MONOCYTES % (AUTO) 5.2 % (3-13); PLATELET COUNT 209 10^3/uL (150-450); RED BLOOD COUNT 4.48 10^6/uL (3.72-5.28); TOTAL CELLS COUNTED % (AUTO) 100 %; WHITE BLOOD COUNT 6.2 10^3/uL (4.0-10.5)
[2020-09-18 12:20] LABS: ANION GAP 9 (5-19); BLOOD UREA NITROGEN 40 mg/dL (7-20); CALCIUM 8.8 mg/dL (8.4-10.2); CARBON DIOXIDE 22 mmol/L (22-30); CHLORIDE 105 mmol/L (98-107); GLUCOSE 248 mg/dL (75-110); PHOSPHORUS 5.3 mg/dL (2.5-4.5); POTASSIUM 5.1 mmol/L (3.6-5.0)
== END ==
LOC: OD 10:36
PROVIDERS: ATTEND Internal Medicine Nephrology
DX: D89.9 Disorder involving the immune mechanism, unspecified (principal); Z94.0 Kidney transplant status; Z79.899 Other long term (current) drug therapy; E55.9 Vitamin D deficiency, unspecified; Z11.4 Encounter for screening for human immunodeficiency virus [HIV]; Z78.9 Other specified health status; B25.9 Cytomegaloviral disease, unspecified; Z94.83 Pancreas transplant status
CPT/HCPCS: 36415; 80048; 80197; 83036; 83735; 84100; 85025